=== PATIENT | male | born 1950 | race Caucasian/White ===

== ENCOUNTER 2020-02-06 13:08 | Outpatient (REF) | payer MEDICARE, OTHER, SELFPAY ==
--- NOTE | 2020-02-06 13:12 | CT_ITS ---
EXAMINATION: CT CHEST SCREENING CLINICAL INFORMATION: Lung screening. Current smoker. COMPARISON: 01/04/2019 TECHNIQUE: Multidetector volumetric CT imaging of the chest is performed without contrast using low dose technique. Additional 2D coronal and sagittal reformatted images and axial 3D maximum intensity projection (MIP) images are generated on the CT workstation. This CT examination was performed using dose optimization techniques as appropriate, variously including the following: *Automated exposure control *Adjustment of mA and/or kV according to patient size (this includes techniques or standardized protocols for targeted exams where dose is matched to indication/reason for exam; i.e. extremities or head) *Use of iterative reconstruction technique DLP: 333 mGy-cm FINDINGS: LUNGS: There is paraseptal emphysematous change seen within the upper lobes right greater than left. There are some increased interstitial lung markings seen within the posterior aspects of the right middle lobe, lingula, and lower lobes. This may be related to dependent atelectasis. There are calcified granulomas seen within the lower lobes bilaterally. Central airways are patent with some bronchial wall thickening seen centrally but no definite bronchiectasis. There is some mild apical pleuroparenchymal scarring present. There are bilateral sub-4 mm densities present.There are some scattered nonspecific ground-glass opacities seen within the left upper lobe which may be inflammatory or infectious etiology. About the confluence of the right major and minor fissures there is a 7 x 5 mm noncalcified nodular density on image 262 of 565. This is stable. Within the right middle lobe there is a 6 mm noncalcified subpleural density on image 317 of 565. This is stable. Within the right lower lobe there is a 5 mm noncalcified density seen on image 243 of 565. This is stable. There is a 7 mm region of semisolid disease subpleural location lateral aspect of the left upper lobe on image 136 of 565. This is similar in appearance to previous study. There is endobronchial density present on a left upper lobe bronchus on image 177 of 565 which may be related to mucous plugging. This is similar in appearance to study of 01/04/2019. Within the medial aspect of the left lower lobe there is a 2.2 x 1.6 irregularly marginated noncalcified mass on image 400 of 565. Previously this measured approximately 1.9 x 1.1 cm in size but was not as dense as it is on today's study where it has a more mass like appearance. MEDIASTINUM: Thyroid appears unremarkable. The heart is enlarged. There is some mild aortic valve calcification. The mitral annulus is calcified. No thoracic aortic aneurysm. There is mild nonocclusive aortic arch calcification. There are numerous non-pathologically enlarged mediastinal lymph nodes. There is a 1.2 cm short axis right precarinal lymph node. There appears to be an approximately 1.3 cm left hilar lymph node; however, without IV contrast this is difficult to evaluate. There is a 1 cm short axis right hilar lymph node. No internal mammary lymphadenopathy is seen. No pericardial effusion. PLEURA: There is no pleural effusion. No pleural mass or thickening. AXILLA: No lymphadenopathy. UPPER ABDOMEN: There is a small hiatal hernia. OSSEOUS STRUCTURES: No suspicious destructive bony lesions identified. IMPRESSION: Enlarging suspicious looking 2.2 x 1.6 cm irregular marginated left lower lobe lesion. PET/CT would be helpful in further evaluation if percutaneous biopsy is not being contemplated. Old granulomatous disease. Mild mediastinal and hilar lymphadenopathy. 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 ASSESSMENT: Lung-RADS category 4B: Suspicious RECOMMENDATION: Further evaluation with PET/CT.
== END 2020-02-06 13:09 | disposition home or self-care (01) ==
LOC: HO.CT 13:08
PROVIDERS: Visit Provider Surgery
DX: Z12.2 Encounter for screening for malignant neoplasm of respiratory organs (principal); F17.210 Nicotine dependence, cigarettes, uncomplicated
CPT/HCPCS: 71250

== ENCOUNTER 2020-02-25 10:37 | Outpatient (REF) | payer MEDICARE, OTHER, SELFPAY ==
--- NOTE | 2020-02-25 | PFT_ITS ---
FLOWS: FEV1 of 45% predicted at 1.50 L. FVC 51% of predicted at 2.19 L. FEV1 to FVC ratio of 0.69. Positive bronchodilator response. LUNG VOLUMES: Total lung capacity 79% of predicted at 5.40 L. Residual volume 138% of predicted at 3.33 L. Slow vital capacity 46% of predicted at 2.07 L. Expiratory reserve volume 19% of predicted at 0.24 L. Diffusion capacity is moderately decreased, diffusion capacity corrects to normal after adjustment for alveolar ventilation. IMPRESSION: Severe obstructive ventilatory defect with positive bronchodilator response. Combined with mild restrictive ventilatory defect. Increased residual volume suggests air trapping. Decreased expiratory reserve volume suggests extrathoracic restriction likely secondary to abdominal obesity. MD CLAUDE Luis/MODL / [id number] MTDD
== END 2020-02-25 10:38 | disposition home or self-care (01) ==
LOC: HO.RESP 10:37
PROVIDERS: Visit Provider Surgery
DX: R91.1 Solitary pulmonary nodule (principal)
CPT/HCPCS: 94060; 94727; 94729

== ENCOUNTER 2020-02-25 11:58 | Outpatient (REF) | payer MEDICARE, OTHER, SELFPAY ==
--- NOTE | 2020-02-25 09:15 | PE_ITS ---
EXAMINATION: Fluorine-18 FDG PET/CT Scan CLINICAL INDICATION: Initial treatment management. Pulmonary nodule. PROCEDURE: 69 minutes following the intravenous administration of 16.9 mCi of fluorine 18 FDG, images from the base of the skull to the mid thighs were obtained using a combined PET/CT scanner with CT scan based attenuation correction. No oral contrast was administered. No intravenous contrast was administered. Transverse, coronal, sagittal, and volume reconstruction projections were obtained. The patient's blood glucose as determined by a finger stick, was 67 mg/dl immediately prior to injection. Total CT exam dose-length product 1074.68 mGy-cm COMPARISON: No previous PET/CT scan is available for comparison. CT scans of the chest dated 02/06/2020 and of the abdomen and pelvis dated 03/08/2017 are available for comparison. FINDINGS: (Slice numbers described in this report are numbered superiorly to inferiorly with slice #1 in the head) NECK AND VISUALIZED HEAD: No foci of abnormal FDG activity are noted. The distribution of FDG activity is physiological. There is no cervical lymphadenopathy. THORAX: There is a medial pleural-based left lower lobe pulmonary nodule that measures 1.5 x 1.2 cm in largest transverse dimensions, slice 111/267. This may show weak FDG activity, but this is not easily from the adjacent intense physiological cardiac activity. This is not significantly changed from the 02/06/[address] scan. No other suspicious pulmonary nodules are visualized. There are few FDG avid mediastinal lymph nodes that are not enlarged by size criteria including a subcarinal node showing SUV Max 5.6, slice 87/267, a left lower paratracheal lymph node showing SUV Max 5.9, slice 78/267 and an AP window lymph node showing SUV Max 4.3, slice 76/267. No other foci of abnormal FDG activity are present within the chest. There is no additional mediastinal, supraclavicular, or axillary lymphadenopathy. A few bilateral calcified granulomas are present in the lower lobes bilaterally, better visualized on the diagnostic 02/06/2020 CT scan and all much too small to be characterized on the FDG PET images. There is no pleural or pericardial fluid, or pneumothorax. ABDOMEN AND PELVIS: No foci of abnormal FDG activity are present in the abdomen or pelvis. There is mild FDG activity throughout the gastrointestinal tract without a focal component, likely physiological. There is diverticulosis without evidence of diverticulitis. Hollow viscera are otherwise unremarkable. The liver, gallbladder, an spleen appear unremarkable. There is a 2.6 cm hypodense cyst in the lower pole the left kidney, unchanged from 03/08/2017. The kidneys are otherwise unremarkable. The adrenal glands and pancreas are unremarkable. There is no retroperitoneal, mesenteric, pelvic or inguinal lymphadenopathy. The pelvic organs are unremarkable. MUSCULOSKELETAL: There are no foci of abnormal FDG activity in the osseous structures. There are mild degenerative changes in the spine but no suspicious sclerotic or lytic lesions are visualized. VASCULAR: Scattered vascular calcifications are present. PET/PET CT fusion skull to thigh IMPRESSION: 1. A medial pleural-based left lower lobe there is no definite abnormal FDG activity suggesting a benign etiology. However because approximately 10% of pulmonary malignancies demonstrate no abnormal FDG activity, in addition this nodule has enlarged since less recent prior CT scans, if biopsy of this nodule is not obtained, followup with diagnostic CT scan in 3-6 months is recommended. 2. Several nonenlarged FDG avid mediastinal lymph nodes are present as described above, and these are nonspecific and may be inflammatory or malignant in etiology. 3. No additional abnormalities suspicious for metastatic or other malignant lesions are noted.
== END 2020-02-25 11:59 | disposition home or self-care (01) ==
LOC: HO.PET 11:58
PROVIDERS: Visit Provider Surgery
DX: Z13.89 Encounter for screening for other disorder (principal)

== ENCOUNTER 2020-03-02 08:08 | Outpatient (REF) | payer MEDICARE, OTHER, SELFPAY ==
[2020-03-02 11:19] LABS: MANUAL DIFF FLAG NO
[2020-03-02 11:48] LABS: Basophils Absolute Auto 0.1 X10*3/uL (0.0-0.2); Basophils Percent Auto 0.6 % (0-2); Eosinophils Absolute Auto 0.7 X10*3/uL (0.0-0.4); Eosinophils Percent Auto 8.1 % (0-4); Hematocrit 37.3 % (42-52); Hemoglobin 11.3 g/dl (14.0-18.0); Imm Gran Abs Auto 0.01 X10*3/uL (0.00-0.03); Imm Gran Pct Auto 0.1 % (0.0-0.4); Lymphocytes Absolute Auto 2.6 X10*3/uL (1.2-4.9); Lymphocytes Percent Auto 32.1 % (20-40); Mean Corpuscular HGB Conc 30.3 g/dl (31.0-36.0); Mean Corpuscular Hemoglobin 25.7 pg (27.0-33.0); Mean Corpuscular Volume 84.8 fL (80-98); Mean Platelet Volume 11.5 fL (9.4-12.4); Monocytes Absolute Auto 0.9 X10*3/uL (0.1-1.2); Monocytes Percent Auto 11.2 % (2-11); Neutrophils Absolute Auto 3.9 X10*3/uL (2.0-8.3); Neutrophils Percent Auto 47.9 % (45-73); Platelet Count 288 X10*3/uL (160-400); Red Cell Distribution Width 14.8 % (11.0-16.0); White Blood Count 8.2 X10*3/uL (4.8-10.8)
[2020-03-02 12:04] LABS: Glucose Urine UA NEG (NEG); Leukocyte Esterase Urine NEG (NEG); Nitrite Urine NEG (NEG); Specific Gravity - Urine 1.025 (1.005-1.025); Urine Blood TRACE (NEG); Urine Ketones NEG (NEG); Urine Protein 2+ MG/DL (NEG-TRACE)
[2020-03-02 12:10] LABS: Albumin Level 3.6 g/dL (3.5-5.0); Anion Gap 12 (12-20); Blood Urea Nitrogen 43 mg/dL (9-16); Calcium 8.6 mg/dL (8.4-10.2); Carbon Dioxide 26 mmol/L (22-29); Chloride 108 mmol/L (96-108); Color Urine YELLOW; Estimated Glomerular Filt Rate 27; Magnesium 2.2 mg/dL (1.6-2.6); Phosphorus 4.2 mg/dL (2.7-4.5); Potassium 5.4 mmol/l (3.3-5.1); Sodium 141 mmol/L (135-145); Total Protein 6.9 g/dL (6.5-8.0)
[2020-03-02 12:11] LABS: Appearance Urine CLEAR
[2020-03-02 12:13] LABS: Renal w Reflex-LAB USE ONLY Order Verified
[2020-03-02 12:17] LABS: Amorphous Sediment Urine TRACE /LPF; RBC Urine 0-2 /HPF (0); Squamous Epithelial Cell Urine TRACE /LPF; WBC Urine 0-2 /HPF (0-4)
[2020-03-02 12:22] LABS: Renal w Reflex Lab Use Only Order verified
[2020-03-02 12:36] LABS: Vitamin D 25-OH Total 16.6 ng/mL (>30)
[2020-03-02 12:37] LABS: Creatinine Urine 52.86 mg/dL; Creatinine Urine 53.52 mg/dL
[2020-03-02 12:56] LABS: Protein/Creatinine Ratio, Ur 6.22 (<0.2); Total Protein Urine Random 329 mg/dL (<12)
[2020-03-04 12:42] LABS: Calcium (PTHI) 9.1 mg/dL (8.6-10.3); PTHI 322 pg/mL (14-64)
== END 2020-03-02 08:09 | disposition home or self-care (01) ==
LOC: HO.HMGCLDS 08:08
PROVIDERS: PCP Nurse Practitioner Family; Visit Provider Internal Medicine Nephrology
DX: E78.5 Hyperlipidemia, unspecified (principal); R79.89 Other specified abnormal findings of blood chemistry; E11.22 Type 2 diabetes mellitus with diabetic chronic kidney disease; I12.9 Hypertensive chronic kidney disease with stage 1 through stage 4 chronic kidney disease, or unspecified chronic kidney disease; N18.30 Chronic kidney disease, stage 3 unspecified; E11.29 Type 2 diabetes mellitus with other diabetic kidney complication
CPT/HCPCS: 36415; 80051; 81001; 82040; 82043; 82306; 82310; 82565; 83735; 83970; 84100; 84155; 84156; 84520; 85025

== ENCOUNTER → 2020-03-13 10:55 | Outpatient (BNVA) | payer MEDICARE, OTHER, SELFPAY | PROVIDERS: PCP Nurse Practitioner Family; Visit Provider Surgery | DX: R91.1 Solitary pulmonary nodule (principal); R59.0 Localized enlarged lymph nodes; Z87.891 Personal history of nicotine dependence | CPT/HCPCS: 99205 ==

== ENCOUNTER → 2020-04-10 10:47 | Outpatient (BNVA) | payer MEDICARE, OTHER, SELFPAY | PROVIDERS: PCP Nurse Practitioner Family; Visit Provider Surgery | DX: R91.1 Solitary pulmonary nodule (principal); Z87.891 Personal history of nicotine dependence | CPT/HCPCS: 99215 ==

== ENCOUNTER 2020-04-15 15:10 | Outpatient (REF) | payer MEDICARE, OTHER, SELFPAY ==
--- NOTE | 2020-04-15 15:54 | XR_ITS ---
EXAMINATION: XR CHEST CLINICAL INFORMATION: Disorders of lung. COMPARISON: None TECHNIQUE: 2 views of the chest were obtained. FINDINGS: The lungs are well-expanded with no acute pneumonic consolidation. Increased bilateral parahilar markings are noted. No gross bony abnormality. XR/XR chest 2V IMPRESSION: No acute pneumonic process. Bilateral increased perihilar interstitial markings without congestion. No infiltrate seen.
== END 2020-04-15 15:11 | disposition home or self-care (01) ==
LOC: HO.XRAY 15:10
PROVIDERS: PCP Nurse Practitioner Family; Visit Provider Internal Medicine
DX: J44.9 Chronic obstructive pulmonary disease, unspecified (principal); R91.1 Solitary pulmonary nodule; J98.4 Other disorders of lung; R79.89 Other specified abnormal findings of blood chemistry
CPT/HCPCS: 71046; 99212

== ENCOUNTER → 2020-04-27 10:57 | Outpatient (BNVA) | payer MEDICARE, OTHER, SELFPAY | PROVIDERS: PCP Nurse Practitioner Family; Visit Provider Internal Medicine Gastroenterology | DX: Z01.818 Encounter for other preprocedural examination (principal); K59.09 Other constipation; J44.9 Chronic obstructive pulmonary disease, unspecified; E11.9 Type 2 diabetes mellitus without complications | CPT/HCPCS: Q3014 ==

== ENCOUNTER → 2020-05-12 15:37 | Outpatient (BNVA) | payer MEDICARE, OTHER, SELFPAY | PROVIDERS: PCP Nurse Practitioner Family; Visit Provider Internal Medicine | DX: J98.4 Other disorders of lung (principal); J44.9 Chronic obstructive pulmonary disease, unspecified; R91.1 Solitary pulmonary nodule | CPT/HCPCS: 99212 ==

== ENCOUNTER 2020-06-03 14:59 | Outpatient (REF) | payer MEDICARE, OTHER, SELFPAY ==
--- NOTE | ~2020-06-03 | CT_ITS ---
EXAMINATION: CT CHEST WITHOUT CONTRAST CLINICAL INFORMATION: Follow-up pulmonary nodule COMPARISON: Previous chest CT scans December 2018 and January 2020 TECHNIQUE: Multidetector volumetric CT imaging of the chest was done. Axial MIP volume rendering provided. Sagittal and coronal reformatted images were obtained. This CT examination was performed using dose optimization techniques as appropriate, variously including the following: *Automated exposure control *Adjustment of mA and/or kV according to patient size (this includes techniques or standardized protocols for targeted exams where dose is matched to indication/reason for exam; i.e. 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 There is evidence of mild paraseptal emphysema. There are increased peripheral interstitial markings at the lung bases. There is interval increase in size in the irregular lobulated left lower lobe nodule. This measures 2 cm in AP and transverse dimension axial image 465 series 5 compared to 1.6 x 1.7 cm on January 2020 exam and 0.7 x 1.4 cm on December 2018 exam.. There are scattered small calcified and noncalcified pulmonary nodules that are stable. MEDIASTINUM: There is shotty mediastinal lymphadenopathy that is stable. Largest lymph nodes are upper normal in size. No hilar adenopathy is appreciated. The heart is slightly enlarged. There is no pericardial effusion. There is mild aortic valve calcification. The thoracic aorta is normal in caliber. PLEURA: There is no pleural effusion. No pleural mass or thickening. AXILLA: No lymphadenopathy. UPPER ABDOMEN: Unremarkable. OSSEOUS STRUCTURES: There is a increased sclerosis of the bones. A focal bone lesion is not seen. Metabolic bone disease should be considered. There are degenerative changes of the spine. CT/CT chest wo con IMPRESSION: Exam is limited due to respiratory motion artifact however there appears to be continued slight interval increase in size in the left lower lobe nodule compared to most recent exam January 2020. Paraseptal emphysema and question mild interstitial disease at the lung bases. Enlarged heart. Diffuse increased sclerosis of the bones questionable for metabolic bone disease.
== END 2020-06-03 15:00 | disposition home or self-care (01) ==
LOC: HO.CT 14:59
PROVIDERS: Visit Provider Surgery
DX: R91.1 Solitary pulmonary nodule (principal)
CPT/HCPCS: 71250

== ENCOUNTER 2020-06-25 19:24 | Outpatient (REF) | payer MEDICARE, OTHER, SELFPAY ==
--- NOTE | ~2020-06-25 | MR_ITS ---
EXAMINATION: MR BRAIN WITHOUT CONTRAST CLINICAL INFORMATION: Staging for non-small cell lung cancer. COMPARISON: None. TECHNIQUE: Multiplanar, multisequence imaging of the brain was performed without contrast. Limited study with motion artifacts. FINDINGS: No diffusion abnormalities are identified to suggest an acute infarct. The ventricles are normal in size. No mass effect or midline shift is seen. Minimal nonspecific white matter signal changes visible. No extra-axial fluid collections are seen. The brainstem is normal. 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 There are a few punctate foci of low signal on the gradient acquisition in the right frontal lobe and right parietal lobe at the to-white matter junction which are nonspecific and may be due to mineralization or chronic microhemorrhage. The craniovertebral junction, marrow signal, and midline structures are normal. The major intracranial flow voids at the level of the [place] are preserved. The dural venous sinus flow voids are maintained. The paranasal sinuses are well aerated. There is a moderate right mastoid effusion. The left mastoid air cells are well clear. The nasopharyngeal soft tissues appear normal. The cervical vertebral marrow is heterogeneously low in signal on T1-weighted imaging with moderate spondylitic changes and a reversal of the normal cervical lordosis. MR/MR head/brain wo con IMPRESSION: Slightly limited study with motion artifacts. No acute intracranial process. No abnormal mass effect or parenchymal edema. 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 Moderate right mastoid effusion. Normal appearance of the nasopharyngeal soft tissues. Nonspecific heterogeneously low marrow signal in the cervical spine with moderate spondylosis.
--- NOTE | 2020-06-25 15:13 | MHC.HEMONCSW ---
[facility] now instead of [facility] because kevin doesn't have a appointment before the . they will call dtr with time.
== END 2020-06-25 19:25 | disposition home or self-care (01) ==
LOC: HO.MRI 19:24
PROVIDERS: Visit Provider Internal Medicine Medical Oncology
DX: C34.90 Malignant neoplasm of unspecified part of unspecified bronchus or lung (principal)
CPT/HCPCS: 70551

== ENCOUNTER 2020-06-30 12:44 | Outpatient (REF) | payer MEDICARE, OTHER, SELFPAY ==
--- NOTE | ~2020-06-30 | PE_ITS ---
EXAMINATION: Fluorine-18 FDG PET/CT Scan CLINICAL INDICATION: Initial treatment management. Adenocarcinoma left lung, initial staging. PROCEDURE: 61 minutes following the intravenous administration of 14.4 mCi of fluorine 18 FDG, images from the base of the skull to the mid thighs were obtained using a combined PET/CT scanner with CT scan based attenuation correction. No oral contrast was administered. No intravenous contrast was administered. Transverse, coronal, sagittal, and volume reconstruction projections were obtained. The patient's blood glucose as determined by a finger stick, was 107 mg/dl immediately prior to injection. Total CT exam dose-length product 1006.69 mGy-cm * These CT images were obtained using dose optimization techniques as appropriate, variously including the following: Automated exposure control * Adjustment of mA and/or kV according to patient size (this includes techniques or standardized protocols for targeted exams where dose is matched to indication/reason for exam; i.e. extremities or head) * Use of iterative reconstruction technique COMPARISON: The previous PET CT scan dated 02/25/2020 is available for comparison. CT scan of the chest dated 06/03/2020 is also available for comparison. FINDINGS: (Slice numbers described in this report are numbered superiorly to inferiorly with slice #1 in the head) NECK AND VISUALIZED HEAD: No foci of abnormal FDG activity are noted. The distribution of FDG activity is physiological. There is no cervical lymphadenopathy. THORAX: Medially in the left lower lobe there are postsurgical changes including multiple metallic sutures and adjacent small left pleural effusion posteromedially, and these show mildly increased FDG activity which is diffuse in the pleural fluid with some additional more focal accumulations showing SUVmax 6.0, slice 100/267. These are all new since the most recent chest CT scan dated 06/03/2020, and the medial left lower lobe pulmonary nodule visualized on that study has been resected. The abnormal FDG activity extends to the medial peribronchial region of the interlobar fissure where there is a discrete focus of FDG activity showing SUVmax 5.4, slice 84/267. No additional foci of abnormal FDG activity are present in the lung parenchyma on either side. Additional scattered small pulmonary nodules visualized on the diagnostic 06/03/2020 CT scan are not well visualized on these nondiagnostic CT images. There are multiple FDG avid mediastinal lymph nodes present, none of which are definitely enlarged. These include a subcarinal lymph node showing SUVmax 4.8, slice 82/267, slightly less intense than on the prior 02/25/2020 PET/CT scan when this showed SUVmax 5.6; a left lower paratracheal node showing SUVmax 4.9, slice 73/267 compared to prior SUVmax 5.9; and an AP window lymph node showing SUVmax 5.1, slice 69/267 versus SUVmax 4.3 on prior. Additional small subcentimeter mediastinal lymph nodes are present at multiple levels, and these do not appear significantly changed in appearance since the prior PET CT scan dated 02/25/2020. There is no supraclavicular or axillary lymphadenopathy. There is no right-sided pleural fluid or pericardial fluid or pneumothorax. ABDOMEN AND PELVIS: No foci of abnormal FDG activity are present in the abdomen or pelvis. There is mild FDG activity in the gastrointestinal tract without a suspicious focal component. There is diverticulosis without evidence of diverticulitis. The hollow viscera are otherwise unremarkable. The liver, gallbladder, and spleen are unremarkable. There is a stable hypodense cyst in the lower pole of the left kidney, markedly FDG photopenic. The kidneys are otherwise unremarkable. The adrenal glands and pancreas are unremarkable. There is no retroperitoneal, mesenteric, pelvic or inguinal lymphadenopathy. A stable small fat-containing periumbilical hernia is noted. The pelvic organs are unremarkable. MUSCULOSKELETAL: No foci of abnormal FDG activity are present in the osseous structures. There are mild degenerative changes in the spine but no suspicious sclerotic or lytic lesions are present. VASCULAR: Scattered vascular calcifications are present. PET/PET CT fusion skull to thigh IMPRESSION: Postsurgical changes from resection of a previously visualized left lower lobe pulmonary nodule are noted. Mildly to moderately intense FDG activity is associated with suture lines and a small amount of left pleural fluid in this region which likely represent post surgical inflammatory changes. Multiple stable appearing mediastinal lymph nodes are present, and these continue to show mild FDG activity which is not significantly changed from the prior 02/25/2020 PET/CT scan. These may be inflammatory or malignant in etiology. No additional abnormalities suspicious for other metastatic or malignant lesions are noted.
== END 2020-06-30 12:45 | disposition home or self-care (01) ==
LOC: HO.PET 12:44
PROVIDERS: Visit Provider Internal Medicine Medical Oncology
DX: Z13.89 Encounter for screening for other disorder (principal)

== ENCOUNTER 2020-07-02 08:45 | Outpatient (REF) | payer MEDICARE, OTHER, SELFPAY ==
[2020-07-02 11:59] LABS: Alanine Aminotransferase 10 U/L (0-40); Albumin Level 3.3 g/dL (3.5-5.0); Alkaline Phosphatase 124 U/L (39-117); Anion Gap 14 (12-20); Aspartate Amino Transferase 12 U/L (5-37); Bilirubin Total 0.3 mg/dL (0.0-1.0); Blood Urea Nitrogen 49 mg/dL (9-16); Calcium 8.6 mg/dL (8.4-10.2); Carbon Dioxide 25 mmol/L (22-29); Chloride 107 mmol/L (96-108); Cholesterol 182 mg/dL; Estimated Glomerular Filt Rate 24; Glucose Fasting 98 mg/dL (60-99); HDL Cholesterol 43 mg/dL; LDL Cholesterol Calculated 105 mg/dl; Potassium 5.4 mmol/L (3.3-5.1); Sodium 141 mmol/L (135-145); Total Protein 7.1 g/dL (6.5-8.0); Triglycerides 171 mg/dL
[2020-07-02 12:12] LABS: Estimated Average Glucose 146 mg/dL; Hemoglobin A1c % 6.7 %
[2020-07-02 12:22] LABS: Prostate Specific Antigen Scr 2.61 ng/mL (<0.05-4.0); TSH reflex Free T4 1.95 uIU/mL (0.32-4.0)
== END 2020-07-02 08:46 | disposition home or self-care (01) ==
LOC: HO.HMGCLDS 08:45
PROVIDERS: PCP Nurse Practitioner Family; Visit Provider Radiology Radiation Oncology
DX: C34.32 Malignant neoplasm of lower lobe, left bronchus or lung (principal); J44.9 Chronic obstructive pulmonary disease, unspecified; J98.4 Other disorders of lung; R06.00 Dyspnea, unspecified; E11.22 Type 2 diabetes mellitus with diabetic chronic kidney disease; N18.9 Chronic kidney disease, unspecified; Z12.5 Encounter for screening for malignant neoplasm of prostate; Z79.84 Long term (current) use of oral hypoglycemic drugs; Z79.899 Other long term (current) drug therapy
CPT/HCPCS: 36415; 80053; 80061; 83036; 84153; 84443; 99212

== ENCOUNTER 2020-07-03 10:04 | Outpatient (REF) | payer MEDICARE, OTHER, SELFPAY ==
--- NOTE | ~2020-07-03 | XR_ITS ---
EXAMINATION: XR CHEST CLINICAL INFORMATION: Solitary pulmonary nodule COMPARISON: CT chest 06/03/2020 TECHNIQUE: 2 views of the chest were obtained. FINDINGS: The lungs are fairly well-expanded with patchy opacity seen in left lung base likely infiltrate/atelectasis. Rest of lungs are clear. The heart size and pulmonary vascularity is normal. No gross bony abnormality seen. XR/XR chest 2V IMPRESSION: Suspect left lower lobe infiltrate/atelectasis.
== END 2020-07-03 10:05 | disposition home or self-care (01) ==
LOC: HO.XRAY 10:04
PROVIDERS: Visit Provider Surgery
DX: R91.1 Solitary pulmonary nodule (principal)
CPT/HCPCS: 71046; 99212

== ENCOUNTER 2020-09-16 11:54 | Outpatient (REF) | payer MEDICARE, OTHER, SELFPAY ==
--- NOTE | ~2020-09-16 | XR_ITS ---
EXAMINATION: XR CHEST CLINICAL INFORMATION: Lung cancer COMPARISON: Previous chest x-ray most recent June [address] a 2020 TECHNIQUE: 2 views of the chest were obtained. FINDINGS: The cardiac and mediastinal contours are stable. There are postsurgical changes to the left lower lobe. The lungs are clear. There is no pleural effusion or pneumothorax. There are degenerative changes of the spine. XR/XR chest 2V IMPRESSION: Postsurgical changes to the left lower lobe.
== END 2020-09-16 11:55 | disposition home or self-care (01) ==
LOC: HO.XRAY 11:54
PROVIDERS: PCP Nurse Practitioner Family; Visit Provider Internal Medicine Medical Oncology
DX: C34.90 Malignant neoplasm of unspecified part of unspecified bronchus or lung (principal); R05 Cough
CPT/HCPCS: 71046

== ENCOUNTER 2020-09-28 14:54 | Outpatient (REF) | payer MEDICARE, OTHER, SELFPAY ==
--- NOTE | ~2020-09-28 | CT_ITS ---
EXAMINATION: CT CHEST WITHOUT CONTRAST CLINICAL INFORMATION: Lung cancer, on chemotherapy. COMPARISON: Previous chest x-rays, most recent August [address] from May 2020 and PET/CT scan June 2020 TECHNIQUE: Multidetector volumetric CT imaging of the chest was done. Axial MIP volume rendering provided. Sagittal and coronal reformatted images were obtained. This CT examination was performed using dose optimization techniques as appropriate, variously including the following: *Automated exposure control *Adjustment of mA and/or kV according to patient size (this includes techniques or standardized protocols for targeted exams where dose is matched to indication/reason for exam; i.e. extremities or head) *Use of iterative reconstruction technique DLP: 294 mGy-cm FINDINGS: LUNGS: There is evidence of paraseptal emphysema. There are small scattered areas of increased peribronchial attenuation seen in the left upper lobe. There is a new heterogeneous or semisolid apical posterior segment left upper lobe nodule near the left pleural fissure measuring 0.7 x 1.3 cm axial image 216 series 4. There are postsurgical changes to the left lower lobe. There is adjacent linear scarring or subsegmental atelectasis seen in the left lower lobe adjacent to the surgical staple line. There is increased peribronchial attenuation seen in the lingula and left lower lobe. There is a 4 x 5 mm peripheral or subpleural right middle lobe nodule near the minor fissure axial image 77 series 4 that is stable. This probably represents a subpleural lymph node. There is a 2 mm peripheral calcified right lower lobe nodule axial image 378 series 4 that is stable. There are increased peripheral interstitial markings questionable for mild interstitial lung disease. MEDIASTINUM: The visualized thyroid gland is unremarkable. There is shotty mediastinal lymphadenopathy. There may also be bilateral hilar lymphadenopathy. This does not appear appreciably changed from previous exam. Lymph nodes are upper normal in size. Largest lymph node is a subcarinal lymph node measuring 1.3 cm in AP dimension. The heart does not appear enlarged. There is mild coronary artery calcification. There is no pericardial effusion. PLEURA: There is a new small loculated left pleural effusion compared to previous chest CT scan from May. This is slightly decreased compared to previous PET/CT scan June 2020. There is no right pleural effusion. AXILLA: No lymphadenopathy. UPPER ABDOMEN: There is right adrenal calcification. OSSEOUS STRUCTURES: There are degenerative changes of the spine. The bones appear dense or sclerotic. A focal lesion is not seen. Again, metabolic bone disease should be considered. No abnormal bone uptake was seen on previous PET CT. CT/CT chest wo con IMPRESSION: Postsurgical changes to the left lower lobe. New areas of increased peribronchial attenuation in the left upper and lower lobe and 0.7 x 1.7 cm left upper lobe semisolid nodule. This may represent airways disease/infectious or inflammatory process. Short-term follow-up chest CT scan in 2-3 months is recommended. Small loculated left pleural effusion decreased from most recent postoperative PET/CT scan June 2020. Mild paraseptal emphysema. Question mild peripheral interstitial lung disease.
== END 2020-09-28 14:55 | disposition home or self-care (01) ==
LOC: HO.CT 14:54
PROVIDERS: Visit Provider Internal Medicine Medical Oncology
DX: C34.90 Malignant neoplasm of unspecified part of unspecified bronchus or lung (principal)
CPT/HCPCS: 71250

== ENCOUNTER → 2020-10-19 14:58 | Outpatient (BNVA) | payer MEDICARE, OTHER, SELFPAY | PROVIDERS: Visit Provider Internal Medicine Gastroenterology ==

== ENCOUNTER → 2020-10-29 06:20 | Day surgery (SDC) | payer MEDICARE, OTHER, SELFPAY ==
[2020-10-21 15:50] VITALS: BMI 33.2
--- NOTE | 2020-10-28 09:00 | P.CONAN_ITS ---
HPI - Anesthesia Eval Consult details Narrative: CX'd 10/29/20 for EKG changes and not completing prep 70yo M for Colonoscopy 06/16/20: left lower lobe wedge resection/VATS for lung CA, chemo last on 09/30 recently passed MESA, Anemia (recent 2 units PRBC), deconditioning PMFSH Active Problems Active Problems: All Active Problems (Updated 10/21/20 @ 15:37 by Romy Mckinley) Mediastinal lymphadenopathy (Acute) Screening PSA (prostate specific antigen) (Acute) Colon cancer screening (Acute) Chronic constipation (Acute) Adenocarcinoma of lung, stage 3 (Acute) Hyperkalemia (Acute) Elevated alkaline phosphatase level (Acute) Adenocarcinoma (Acute) Poor nutrition (Acute) Systolic murmur (Acute) Overgrown toenails (Acute) Dyspnea on exertion (Acute) COPD (chronic obstructive pulmonary disease) (Acute) Restrictive lung disease (Acute) COPD (chronic obstructive pulmonary disease) (Acute) Diabetes (Acute) Lung nodule (Acute) Personal history of nicotine dependence (Acute) Past Medical History Medical History (Updated 10/28/20 @ 09:08 by Gianna Lenz) Adenocarcinoma of lung, stage 3 Arthritis CKD (chronic kidney disease) COPD (chronic obstructive pulmonary disease) COPD (chronic obstructive pulmonary disease) Diabetes Dyspnea on exertion HTN (hypertension) Lung nodule Personal history of nicotine dependence Restrictive lung disease Family History Family History Father No problems noted. Mother Diabetes mellitus Surgical History Surgical History (Updated 10/21/20 @ 15:37 by Romy Mckinley) H/O pneumonectomy History of arthroplasty of left knee History of right cataract extraction Social History Social History (Updated 10/21/20 @ 15:48 by Romy Mckinley) Household Members: Spouse and None Housing: House Are you a primary primary care sales representative to a significant other at home: No Do you presently have visiting nurse or other home services: No Alcohol intake: never Patient Tobacco Use Status: Former Tobacco user Quit Date: 11/30/19 Tobacco use type: Cigarette Years Smoked: 55 Second Hand Smoke Exposure: No Use of substances other than those prescribed or required for medical reasons: No Have you been hit, kicked, punched, or otherwise hurt by someone within the past year? If so, by whom?: No Are you DNR?: No Advance Directives: No Advance Directives Information Provided: No Advance Directives on File: No Recently lost weight without trying: No Eating poorly because of decreased appetite: No Nutrition Risks: No Nutritional Risk Meds Allergies Allergy/AdvReac Type Severity Reaction Status Date / Time No Known Allergies Allergy Verified 10/19/20 15:08 [No Known Allergies*] Exam Exam Date and Time: October 28, 2020 0900 Height,Weight and Vital Signs: Height 5 ft 9 in Weight 102.058 kg Pertinent Lab Results Pertinent Lab Results: Laboratory Tests 10/08/20 10/08/20 10:38 10:38 WBC 5.0 Hgb 9.7 L Hct 30.6 L Plt Count 260 D Sodium 142 Potassium 5.2 H Chloride 108 Carbon Dioxide 25 BUN 49 H Creatinine 2.60 H Assessment and Plan Assessment Anesthesia Assessment: Chart Reviewed
--- NOTE | 2020-10-29 | ECG_ITS ---
Test Reason : ST depression/ inverted T waves no previous EKG for compari Blood Pressure : / mmHG Vent. Rate : 072 BPM Atrial Rate : 072 BPM P-R Int : 198 ms QRS Dur : 104 ms QT Int : 402 ms P-R-T Axes : 064 -17 139 degrees QTc Int : 440 ms Normal sinus rhythm Voltage criteria for left ventricular hypertrophy Nonspecific T wave abnormality Abnormal ECG When compared with ECG of 16-DEC-2015 14:42, Nonspecific T wave abnormality now evident in Inferior leads T wave inversion now evident in Lateral leads Referred By: Stephanie Robledo Electronically Signed By:JUAN JOHN
[2020-10-29 06:39] LABS: Glucose, Whole Blood 71 mg/dL (60-115)
[2020-10-29 06:41] VITALS: BP 144/79; PULSE 84; RESP 18; TEMP 36.6; O2SAT 97
--- NOTE | 2020-10-29 06:53 | PC.NURSE ---
PATIENT'S BS 70 AT 0630. PATIENT IS CURRENTLY ASYMPTOMATIC. THIS RN CORTEXTED DR. WYLIE
[2020-10-29] MEDS: 0.9 % Sodium Chloride 1,000 ML 50 ML IVCONT (07:00)
--- NOTE | 2020-10-29 07:02 | MHC.SHP ---
Pre-Procedural Eval Section A Date of Service: 10/29/20 The patient is an INPATIENT: No The History & Physical has been completed within 30 days and I have reviewed it.: Yes Section B Chief Complaint: constipation Allergies: Allergies Allergy/AdvReac Type Severity Reaction Status Date / Time No Known Allergies Allergy Verified 10/19/20 15:08 [No Known Allergies*] Plan Diagnosis/Plan: Change (Pt took solid food for breakfast and lunch yesterday. Took only one dose of Miralax. Has been having soft stools.Procedure cancelled since patient is not prepped) I have reviewed the history and physical and performed a pertinent physical examination on my patient. No changes have occurred unless specified.
--- NOTE | 2020-10-29 07:02 | W.PM.OPN ---
Operative Note Operative Note Date of Service: 10/29/20
--- NOTE | 2020-10-29 07:02 | PM.OP ---
Brief Operative Note Date of Service: 10/29/20 Pre-op diagnosis: Colon cancer screening Procedure: COLONOSCOPY PROCEDURE NOTE Consent: Indications for the procedure and potential complications of bleeding, perforation, reaction to medications and missed diagnosis were discussed with the patient and informed consent was obtained. Instrument: Olympus PCF H 190 L variable stiffness pediatric colonoscope Monitoring: Vital signs and clinical assessment, intermittent blood pressure monitoring, continuous EKG monitoring, Pulse oximetry and Carbon Dioxide monitoring were done throughout the procedure. Colon withdrawl time was [] minutes. Procedure: The patient was placed in the left lateral decubitis position and pre-procedure medications were administered. After a digital rectal examination of the ano-rectum, the video colonoscope was inserted into the rectum and advanced through the colon to the cecum. The colonoscope was slowly withdrawn in a retrograde panoramic fashion and the colon mucosa was carefully examined including a retroflexed view of the rectum. Findings and interventions are described below. Procedure Difficulty: [Without difficulty] [LLQ pressure applied to intubate the transverse colon/cecum] Findings: Terminal Ileum: Not evaluated Cecum: Normal Ascending Colon: Normal Transverse Colon: Normal Descending Colon: Normal Sigmoid Colon: Moderate diverticulosis Rectum: Normal Ano-rectum: Moderate internal hemorrhoids Colon preparation: [Excellent] [Good] [Fair] [poor] Impression and Post Procedure Diagnosis: Colonoscopy Findings: [] polyps removed Moderate diverticulosis seen in the []colon Moderate hemorrhoids on retroflexed exam. Plan: Await pathology results Patient has an appointment on []in the GI Clinic with [LORIE Amaya] [Valery Sellers NP] [Valery Mccarty, CONTINUOUS IMPROVEMENT ENGINEER-] [Rupinder Thrasher M.D.]. Repeat Colonoscopy interval based on path results - in 3-5 years if polyps are adenomatous and 10 years if polyps are hyperplastic. Above findings were reviewed with the patient and [colon polyps] and [diverticulosis] handouts were given in the discharge area Surgeon: Rupinder Thrasher MD Was an Churn Tender used for this Procedure?: No
[2020-10-29 07:12] VITALS: BMI 32.8
--- NOTE | 2020-10-29 07:23 | PC.NURSE ---
DR. BUSTAMANTE ORDERED AN EKG.
--- NOTE | 2020-10-29 07:43 | PC.NURSE ---
PROCEDURE BEING CANCELLED R/T PATIENT DID NOT COMPLETE HIS PREP. DR. LINDSEY AWARE AND ANESTHESIA.
--- NOTE | 2020-10-29 07:44 | PM.EVENT ---
Event Note Date of Service: 10/29/20 Event Note: Pt came for his colonoscopy appointment. Pt took solid food for breakfast and lunch yesterday. Took only one dose of Miralax. Has been having soft stools. Procedure cancelled since patient is not prepped. Scheduled for XRT treatment for lung cancer for 6 weeks. Colonoscopy will be rescheduled in 8 weeks after patient completes his XRT.
== END ==
PROVIDERS: PCP Nurse Practitioner Family; Visit Provider Internal Medicine Gastroenterology
DX: K59.00 Constipation, unspecified (principal); Z53.8 Procedure and treatment not carried out for other reasons; C34.92 Malignant neoplasm of unspecified part of left bronchus or lung; Z87.891 Personal history of nicotine dependence
CPT/HCPCS: 82947; 93005

== ENCOUNTER 2021-01-14 08:21 | Outpatient (REF) | payer MEDICARE, OTHER, SELFPAY ==
--- NOTE | ~2021-01-14 | XR_ITS ---
EXAMINATION: XR AP KNEES, BILATERAL STANDING XR KNEE, RIGHT CLINICAL INFORMATION: Pain. COMPARISON: None TECHNIQUE: AP bilateral knees. Right knee 2 views. FINDINGS: AP Bilateral Knees: There is a loss of medial compartment joint space right knee. The lateral compartment joint space is maintained normal. There is a total left knee prosthesis. Linear calcification is seen along the lateral knee. Right Knee: There is severe loss of patellofemoral compartment joint space with moderate periarticular spurring. There is no suprapatellar joint effusion. There are no loose bodies. No acute fracture or dislocation. No soft tissue swelling. XR/XR knee standing BI IMPRESSION: Degenerative arthritic changes medial and patellofemoral compartment right knee. No visible acute fracture or dislocation seen. No abnormal joint effusion. Total left knee prosthesis in alignment.
--- NOTE | ~2021-01-14 | XR_ITS ---
EXAMINATION: XR AP KNEES, BILATERAL STANDING XR KNEE, RIGHT CLINICAL INFORMATION: Pain. COMPARISON: None TECHNIQUE: AP bilateral knees. Right knee 2 views. FINDINGS: AP Bilateral Knees: There is a loss of medial compartment joint space right knee. The lateral compartment joint space is maintained normal. There is a total left knee prosthesis. Linear calcification is seen along the lateral knee. Right Knee: There is severe loss of patellofemoral compartment joint space with moderate periarticular spurring. There is no suprapatellar joint effusion. There are no loose bodies. No acute fracture or dislocation. No soft tissue swelling. XR/XR knee RT 2V IMPRESSION: Degenerative arthritic changes medial and patellofemoral compartment right knee. No visible acute fracture or dislocation seen. No abnormal joint effusion. Total left knee prosthesis in alignment.
== END 2021-01-14 08:22 | disposition home or self-care (01) ==
LOC: HO.HOSX 08:21
PROVIDERS: Visit Provider Orthopaedic Surgery
DX: M17.11 Unilateral primary osteoarthritis, right knee (principal)
CPT/HCPCS: 20610; 73560; 73565; 99202; J1100

== ENCOUNTER → 2021-01-19 14:17 | Outpatient (BNVA) | payer MEDICARE, OTHER, SELFPAY | PROVIDERS: PCP Nurse Practitioner Family; Visit Provider Internal Medicine | DX: J44.9 Chronic obstructive pulmonary disease, unspecified (principal); C80.1 Malignant (primary) neoplasm, unspecified; J98.4 Other disorders of lung; R05 Cough | CPT/HCPCS: 99212 ==

== ENCOUNTER 2021-01-22 09:39 | Outpatient (RCR) | payer MEDICARE, OTHER, SELFPAY ==
--- NOTE | 2021-01-22 11:00 | MHC.PT.EP ---
[facility] [place] Office [address] Jayce Angulo [address] [phone] F: [phone] F: [phone] F: [phone] F: [phone] Physical Therapy Plan of Care Date of Evaluation: Date of Surgery: Diagnosis: R knee OA Assessment: 70 y/o M referred to PT with R knee OA. He had L TKA 2015 and now he is feeling 'the same arthritis in the R knee that is progressively worsening. Of note, he has been undergoing treatment for stage 3 adenocarcinoma of the lung (lobectomy 06/14, 9 sessions of chemo, and just finished radiation 3 weeks ago.) His also recently a few weeks ago; he will be going to live with his daughter for the winter in [facility] and [facility]. 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 Examination shows decreased R knee extension, decreased B LE strength, poor balance, and impaired gait pattern. Recommend PT 2x/week for 5 weeks to address impairments, implement HEP, and optimize functional mobility. Frequency and Duration: The patient will be seen 2x/week for 5 weeks Short Term Goals: 3 weeks 1. I with HEP 2. Pt will demonstrate R knee AROM: [id number] 3. Pt will demonstrate R SLR without quad lag [facility] Goals: 5 weeks 1. I with HEP and self management of sx 2. Pt will be able to walk > 20 min with pain < 3/10 3. Improve LE strength by one MMT to facilitate walking Treatment Plan: Modalities to reduce pain, spasms and effusion. Manual therapy to restore motion and function. Therapeutic exercise to improve strength and flexibility. Neuromuscular re-education for posture and balance. Therapeutic activities to return to functional activities of daily living. Electronically signed by: Kateryna Altman PT Please sign and return to therapist. Thank you for your referral.
--- NOTE | 2021-02-15 10:08 | MHC.PT.DC ---
[facility] [place] Office [place] Office [place] Office [address] Jayce Angulo [address] [facility] [phone] F: [phone] F: [phone] F: [phone] F: [phone] Physical Therapy Discharge Report Diagnosis: R knee OA Date of Surgery: Date of Evaluation: 01/22/21 Date of Discharge: 02/15/21 Treatments to Date: 1 Cancellations to Date: 0 No Shows to Date: 0 Discharge Status: Patient Elected to Stop Discharge Summary: Pt called to d/c as he is moving to [place]. Electronically signed by: Kateryna Altman PT Please sign and return to therapist. Thank you for your referral.
== END 2021-02-15 10:08 | disposition home or self-care (01) ==
LOC: HO.PTCHIC 09:39
PROVIDERS: PCP Nurse Practitioner Family; Visit Provider Orthopaedic Surgery
DX: M17.11 Unilateral primary osteoarthritis, right knee (principal); R53.81 Other malaise
CPT/HCPCS: 97110; 97161

== ENCOUNTER 2021-02-04 08:56 | Inpatient (IN) | payer MEDICARE, OTHER, SELFPAY ==
--- NOTE | ~2021-02-04 | XR_ITS ---
EXAMINATION: XR ANKLE, RIGHT CLINICAL INFORMATION: Heel pain COMPARISON: None TECHNIQUE: AP, lateral, and mortise views of the right ankle. FINDINGS: Bone alignment is normal. No fracture or dislocation is seen. The ankle mortise is normal. There are calcaneal spur. Soft tissues are otherwise normal XR/XR ankle RT min 3V IMPRESSION: Calcaneal spurs.
--- NOTE | ~2021-02-04 | CT_ITS ---
EXAMINATION: CT CHEST WITHOUT CONTRAST CLINICAL INFORMATION: History of lung cancer. Question nodule or infiltrate. COMPARISON: None TECHNIQUE: Multidetector volumetric CT imaging of the chest was done. Axial MIP volume rendering provided. Sagittal and coronal reformatted images were obtained. This CT examination was performed using dose optimization techniques as appropriate, variously including the following: *Automated exposure control *Adjustment of mA and/or kV according to patient size (this includes techniques or standardized protocols for targeted exams where dose is matched to indication/reason for exam; i.e. extremities or head) *Use of iterative reconstruction technique DLP: 346 mGy-cm FINDINGS: LUNGS: There are postsurgical changes to the left lower lobe with surgical staple line. There are increased peripheral interstitial markings and areas of consolidation or airspace disease with air bronchograms in the left upper lobe and superior segment of the left lower lobe. There is chronic likely atelectasis or scarring seen in the left lower lobe adjacent to the surgical staple line that appears unchanged. There is a peripheral or subpleural right middle lobe nodule adjacent to the minor fissure measuring 4 mm axial image 30 probably representing a subpleural lymph node that is stable. There is evidence of paraseptal emphysema. There are areas of increased peripheral interstitial markings in the right lung again questionable for mild interstitial lung disease. MEDIASTINUM: There is diffuse mediastinal lymphadenopathy. This does not appear appreciably changed. Larger lymph nodes are upper normal in size, for example a right paratracheal lymph node measuring 1 cm in short axis axial image series 3 and subcarinal lymph node measuring 1.2 cm in short axis axial image 30 series 4 . The heart is enlarged. There is no pericardial effusion. The thoracic aorta is normal in caliber. PLEURA: There is no pleural effusion. No pleural mass or thickening. AXILLA: No lymphadenopathy. UPPER ABDOMEN: There may be diverticulosis of the colon. OSSEOUS STRUCTURES: The bones appear diffusely sclerotic. Focal lesion or fracture is not seen. There are degenerative changes of the spine. CT/CT chest wo con IMPRESSION: Emphysema and question mild peripheral interstitial lung disease. New areas of increased interstitial markings and patchy areas of airspace disease or consolidation seen in the peripheral left upper lobe and superior segment of the left lower lobe. Infection/pneumonia and changes related to interstitial lung disease should be considered . Stable postsurgical changes and scarring or atelectasis left lower lobe.
--- NOTE | ~2021-02-04 | US_ITS ---
EXAMINATION: US VENOUS ULTRASOUND WITH DOPPLER LOWER EXTREMITY, BILATERAL CLINICAL INFORMATION: Bilateral lower extremity pain COMPARISON: None TECHNIQUE: Ultrasound of the deep veins is performed from the hip to the calf with compression sonography and color and pulse Doppler assessment. Spectral analysis with color-flow imaging is performed. FINDINGS: RIGHT: There is normal venous compression and respiratory variation and augmented flow. The visualized common femoral vein, superficial femoral vein, profunda femoral vein, popliteal vein, and the trifurcation region shows no evidence of deep venous thrombosis. There is no significant popliteal fossa cyst. LEFT: There is normal venous compression and respiratory variation and augmented flow. The visualized common femoral vein, superficial femoral vein, profunda femoral vein, popliteal vein, and the trifurcation region shows no evidence of deep venous thrombosis. There is no significant popliteal fossa cyst. If the patient's symptoms persist, followup ultrasound in 5 days 7 days might be of value to exclude proximal propagation from a non-visualized calf vein. US/US venous duplex LE BI IMPRESSION: No DVT demonstrated in the bilateral lower extremities.
--- NOTE | ~2021-02-04 | XR_ITS ---
EXAMINATION: XR CHEST CLINICAL INFORMATION: Leukocytosis COMPARISON: Previous chest x-ray August [address] September 2020 TECHNIQUE: Frontal view of the chest was obtained. FINDINGS: The cardiac and mediastinal contours are stable. There is slight elevation of the left hemidiaphragm. There are surgical clips projecting over the left lower lung. There are increased markings in the central left lower lung questionable for a small infiltrate. This findings may be chronic. There is question of a 1.7 cm nodule or infiltrate in the left upper lung in between the left first and second ribs. The right lung is clear. There is no pleural effusion or pneumothorax. There are degenerative changes of the spine. XR/XR chest 1V IMPRESSION: Postsurgical changes to the left hemithorax. Question left sided infiltrate. Some of these changes may be chronic compared with prior exams.
--- NOTE | ~2021-02-04 | MR_ITS ---
EXAMINATION: MR LUMBAR SPINE WITHOUT CONTRAST CLINICAL INFORMATION: Lower extremity weakness. COMPARISON: No relevant prior imaging available. TECHNIQUE: MRI of the lumbar spine was obtained using routine sequences without contrast. FINDINGS: There is transitional spinal anatomy at the lumbosacral junction with partial sacralization of the L5 vertebral segment. Specifically there is a pseudoarticulation between the left L5 transverse process and the sacrum. Alignment is normal. Vertebral body heights are preserved. No acute bone marrow signal changes. There are mixed predominantly type II degenerative endplate changes at multiple levels. There is loss of intervertebral disc height and T2 signal intensity at multiple levels related to disc degeneration. The tip of the conus medullaris is located at L1. No mass effect on the conus. Visualized distal cord signal intensity is normal. At L1-L2 the annular contour is normal. No canal or neuroforaminal compromise. At L2-L3 there is a left subarticular protrusion superimposed upon a diffusely bulging disc. Bilateral facet degenerative change. Mild canal stenosis. There is asymmetric narrowing of the left subarticular zone with medial displacement and likely compression of left traversing L3 nerve roots. No foraminal nerve root compression. At L3-L4 there is a diffusely bulging disc. Bilateral facet degenerative change. Moderate canal stenosis. There is subtle abutment of the right traversing L4 nerve roots. Partial effacement of perineural fat with mild mass effect on the right L3 foraminal nerve roots. At L4-L5 there is a shallow central protrusion superimposed upon a bulging disc. Bilateral facet degenerative change. Mild canal stenosis. Subarticular zone narrowing causes abutment of the right traversing L5 nerve roots. Mild mass effect on the right L4 foraminal nerve roots. At L5-S1 the annular contour is normal. Bilateral facet degenerative change. No canal stenosis. No mass effect on the traversing or foraminal nerve roots. Limited visualization of the retroperitoneal anatomy reveals a few well marginated benign-appearing cystic lesions within both kidneys. Psoas and paraspinal muscle groups are symmetric. MR/MR lumbar spine wo con IMPRESSION: There is multilevel degenerative spondylosis of the lumbar spine. Moderate canal stenosis at L3-L4. Mild canal stenosis at L2-L3 and L4-L5. There are varying degrees of mass effect on the traversing and foraminal segments of the nerve roots as described above. For instance at L2-L3 there is asymmetric narrowing of the left subarticular zone causing medial displacement and likely compression of the left traversing L3 nerve roots.
--- NOTE | ~2021-02-04 | MR_ITS ---
EXAMINATION: MR BRAIN WITHOUT CONTRAST CLINICAL INFORMATION: Bilateral lower extremity weakness and right arm weakness. COMPARISON: Brain MRI 06/25/2020. TECHNIQUE: Multiplanar, multisequence imaging of the brain was performed without intravenous contrast. FINDINGS: There is no acute infarct, hemorrhage, mass, or extra-axial fluid collection. The ventricles are normal in size without hydrocephalus. A small focus of nonspecific T2 hyperintensity seen within the right upper basal ganglia. The brain parenchyma signal otherwise appears normal. No significant microangiopathy is seen. 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 The major arterial flow voids are preserved at the skull base. There is a right lens replacement. Small amount of right mastoid fluid is seen. Low signal is again seen within the marrow. MR/MR head/brain wo con IMPRESSION: No acute intracranial abnormality. Redemonstration of small chronic lacunar infarcts within the right midbrain and left cerebellum. Redemonstration of nonspecific low signal within the marrow.
--- NOTE | 2021-02-04 09:07 | ECG_ITS ---
Test Reason : WEAKNESS Blood Pressure : / mmHG Vent. Rate : 099 BPM Atrial Rate : 099 BPM P-R Int : 180 ms QRS Dur : 098 ms QT Int : 348 ms P-R-T Axes : 067 -30 031 degrees QTc Int : 446 ms Normal sinus rhythm Left anterior fascicular block Moderate voltage criteria for LVH, may be normal variant ( R in aVL , Bora product ) Abnormal ECG No previous ECGs available Referred By: Janis Carey Electronically Signed By:JOSE BERGERON MD
--- NOTE | 2021-02-04 09:08 | ED_ITS ---
HPI - General Adult General Chief complaint: Weakness Stated complaint: GENERAL WEAKNESS,HX LUNG CA,DM Time Seen by Provider: 02/04/21 08:58 Source: patient and EMS Mode of arrival: EMS Limitations: no limitations History of Present Illness HPI narrative: Patient comes emergency room by EMS. Patient comes from home, lives alone, has good support from family. Patient states that he has bilateral lower extremities pain from the knees down bilaterally but it is worse in the soles of his feet, pt has hard time walking. Patient denies any injuries. Patient states it started approximately at 23:00 (approx 11hrs) Patient denies any recent illnesses. Patient had his last round of chemotherapy for lung cancer in September 2020, and radiation in December 2020. Patient also mentioned that while he was undergoing chemotherapy, his hemoglobin levels dropped significantly, needed a blood transfusion. Patient denies fever, vomiting, diarrhea, URI symptoms Related Data Home Medications Medication Instructions Recorded Confirmed ergocalciferol (vitamin D2) 1,250 1,250 mcg PO Q2W 01/19/21 02/04/21 mcg (50,000 unit) capsule ferrous sulfate 325 mg (65 mg 325 mg PO BID 01/19/21 02/04/21 iron) tablet gabapentin 300 mg capsule 300 mg PO BEDTIME 02/04/21 02/04/21 ipratropium 0.5 mg-albuterol 3 mg 3 ml INHALATION TID-QID PRN 02/04/21 02/04/21 (2.5 mg base)/3 mL nebulization soln Previous Rx's Medication Instructions Recorded lisinopril 10 mg tablet 10 mg PO DAILY #90 tab 07/23/20 pioglitazone 30 mg tablet 30 mg PO DAILY 90 Days #90 tab 07/23/20 simvastatin 20 mg tablet 20 mg PO BEDTIME #90 tab 07/23/20 glipizide 5 mg tablet, extended 5 mg PO DAILY 90 Days #90 tab 01/14/21 release 24 hr Allergies Allergy/AdvReac Type Severity Reaction Status Date / Time No Known Allergies Allergy Verified 01/19/21 14:39 [No Known Allergies*] Review of Systems Review of Systems: Constitutional : No Weight loss, No Fever, No Chills, No Night Sweats, complaining of fatigue and generalized weakness ENT/Mouth : No Hearing loss, No Ear Pain, No Nasal Congestion, No Sinus Pain, No Hoarseness, No sore throat, No Rhinorrhea, No Swallowing Difficulty Eyes: No Eye Pain, No Swelling, No Redness, No Foreign Body, No Discharge, No Vision Changes Cardiovascular : No Chest Pain, No SOB, No Dyspnea on Exertion, No Orthopnea, No Edema, No Palpitations Respiratory : No Cough, No Sputum, No Wheezing, No Smoke Exposure, No Dyspnea Gastrointestinal : No Nausea, No Vomiting, No Diarrhea, No Constipation, No abdominal Pain, No Hematochezia, No Melena Genitourinary : no irregular bleeding, No Dysuria, No Urinary Frequency, No Hematuria, No Urinary Incontinence, No Urgency, No Flank Pain, No Urinary Flow Changes, No Hesitancy Musculoskeletal complaining of leg weakness, plantar to pain, No Myalgias, No Joint Swelling Skin : No Skin Lesions, No rash Neuro : No Weakness, No Numbness, No Paresthesias, No Loss of Consciousness, No Dizziness, No Headache Psych : No Anxiety/Panic, No Depression, No SI/HI/AH/VH, No Social Issues, Heme/Lymph: No Bruising, No Bleeding,No Lymphadenopathy Endocrine : No Polyuria, No Polydipsia, No Temperature Intolerance [facility] Past Medical History Medical History Adenocarcinoma of lung, stage 3 Arthritis CKD (chronic kidney disease) COPD (chronic obstructive pulmonary disease) COPD (chronic obstructive pulmonary disease) Cough Diabetes Dyspnea on exertion HTN (hypertension) Lung nodule Personal history of nicotine dependence Restrictive lung disease Surgical History H/O pneumonectomy History of arthroplasty of left knee History of right cataract extraction Family History Family History Father No problems noted. Mother Diabetes mellitus Social History Social History (Updated 10/21/20 @ 15:48 by Romy Mckinley RN) Household Members: Spouse and None Housing: House Are you a primary child day care provider to a significant other at home: No Do you presently have visiting nurse or other home services: No Alcohol intake: never Patient Tobacco Use Status: Former Tobacco user Quit Date: 11/30/19 Tobacco use type: Cigarette Years Smoked: 55 Second Hand Smoke Exposure: No Use of substances other than those prescribed or required for medical reasons: No Advance Directives: No Advance Directives Information Provided: No Physical Exam Vital Signs: Vital Signs: Last Vital Signs Temp 98.4 F 02/04/21 13:28 Pulse 70 02/04/21 14:46 Resp 20 02/04/21 14:46 BP 121/55 L 02/04/21 14:46 Pulse Ox 98 02/04/21 14:46 Body Mass Index 33.5 Const: Other: Appearance: Alert. Oriented X3. No acute distress. Eyes: Pupils equal, round and reactive to light. ENT: Pharynx normal. Neck: Normal inspection. Neck supple. No lymph nodes noted. No crepitus CVS: Normal heart rate and rhythm. Pulses normal. Normal S1 and S2 Respiratory: No respiratory distress. Breath sounds normal on the right side, decreased breath sounds left side, No Wheezing. No rales Abdomen: Soft and nontender. No rigidity. No distention. Skin: Skin warm and dry. Normal skin color. Normal skin turgor. Extremities: Trace pitting edema bilaterally. No Lacerations. No Rash, pain to palpation over the right heel Neuro: Oriented X 3. No sensory deficit. Moving all extermities. No slurred speech. Patient has a hard time walking, needs asistance to get up from sitting position, complaining of pain in his bilateral lower extremities. Left arm strength 5/5, right Arm strength 4/5 Course Course Course Narrative: Patient has acute weakness starting yesterday 23:00. Here in the emergency room, patient states that the reason that he is having trouble getting up is due to pain in his lower extremities rather than weakness. However, patient needs a one-person assist to transfer from bed to wheelchair Troponin 1 Is positive, no EKG changes, troponin 2. Pending for 12:30, no CP/SOB MRI, UA, CXR pending I discussed the patient with Dr. Phillips. Patient is outside of the window of treatment. We will skip head CT and head/neck CTA and get an MRI Patient has surgical clips in his left lung, discussed with MRI hostel parent, patient may get the MRI MRI negative for any acute pathology Ankle x-ray only shows a calcaneal spur. ESR and CRP are pending, troponin 2. Is stable. Physical therapy worked with the patient, patient has trouble getting up by himself, physical therapy recommends short-term rehab CT scan of the chest pending. Sign-out given to Dr. Larios Medical Decision Making Lab Data Result diagrams: 02/04/21 09:38 02/04/21 09:38 Labs: Lab Results 02/04/21 02/04/21 02/04/21 Range/Units 09:38 09:38 09:38 WBC 14.3 H (4.8-10.8) X10*3/uL RBC 3.45 L (4.60-5.80) X10*6/uL Hgb 9.7 L (14.0-18.0) g/dl Hct 31.1 L (42-52) % MCV 90.1 (80-98) fL MCH 28.1 (27.0-33.0) pg MCHC 31.2 (31.0-36.0) g/dl RDW 13.7 (11.0-16.0) % Plt Count 274 (160-400) X10*3/uL MPV 9.8 (9.4-12.4) fL Immature Gran % (Auto) 0.7 H (0.0-0.4) % Neut % (Auto) 82.6 H (45-73) % Lymph % (Auto) 6.7 L (20-40) % [place] % (Auto) 9.8 (2-11) % Eos % (Auto) 0.1 (0-4) % Baso % (Auto) 0.1 (0-2) % Lymph # (Auto) 1.0 L (1.2-4.9) X10*3/uL [place] # (Auto) 1.4 H (0.1-1.2) X10*3/uL Eos # (Auto) 0.0 (0.0-0.4) X10*3/uL Baso # (Auto) 0.0 (0.0-0.2) X10*3/uL Abs Immat Gran (auto) 0.10 H (0.00-0.03) X10*3/uL Absolute Neuts (auto) 11.8 H (2.0-8.3) X10*3/uL Absolute Nucleated RBC 0.000 (0.0-0.012) X10*3/uL Nucleated RBC % (auto) 0.0 (0.0-0.2) /100WBC ESR (0-15) MM/HR PT (9.9-13.0) SEC INR (0.9-1.1) Sodium 139 (135-145) mmol/L Potassium 5.1 (3.3-5.1) mmol/L Chloride 108 (96-108) mmol/L Carbon Dioxide 23 (22-29) mmol/L Anion Gap 13 (12-20) BUN 49 H (9-16) mg/dL Creatinine 2.88 H (0.5-1.4) mg/dL Estim Creat Clear Calc 26.9 Estimated GFR 22 Random Glucose 204 H (60-115) mg/dL Uric Acid 6.4 (3.4-7.0) mg/dL Calcium 9.0 (8.4-10.2) mg/dL Magnesium 1.9 (1.6-2.6) mg/dL Total Bilirubin < 0.2 (0.0-1.0) mg/dL Direct Bilirubin < 0.2 (0.0-0.5) mg/dL AST 12 (5-37) U/L ALT 12 (0-40) U/L Alkaline Phosphatase 91 (39-117) U/L Troponin I High Sens 136.9 H* (<3.5-35.0) ng/L C-Reactive Protein 4.61 H (< or = 0.50) mg/dL B-Natriuretic Peptide (<100) pg/mL Total Protein 7.2 (6.5-8.0) g/dL Albumin 3.6 (3.5-5.0) g/dL Urine Color Urine Appearance Urine pH (5.0-8.0) Ur Specific [place] (1.005-1.025) Urine Protein (NEG-TRACE) MG/DL Urine Glucose (UA) (NEG) MG/DL Urine Ketones (NEG) MG/DL Urine Blood (NEG) Urine Nitrite (NEG) Ur Leukocyte Esterase (NEG) Urine RBC (0) /HPF Urine WBC (0-4) /HPF Ur Squamous Epith Cells /LPF Amorphous Sediment /LPF Urine Bacteria /LPF COVID-19 (CATY) (Negative) COVID-19 Clin Com 02/04/21 02/04/21 02/04/21 Range/Units 09:38 09:38 09:39 WBC (4.8-10.8) X10*3/uL RBC (4.60-5.80) X10*6/uL Hgb (14.0-18.0) g/dl Hct (42-52) % MCV (80-98) fL MCH (27.0-33.0) pg MCHC (31.0-36.0) g/dl RDW (11.0-16.0) % Plt Count (160-400) X10*3/uL MPV (9.4-12.4) fL Immature Gran % (Auto) (0.0-0.4) % Neut % (Auto) (45-73) % Lymph % (Auto) (20-40) % [place] % (Auto) (2-11) % Eos % (Auto) (0-4) % Baso % (Auto) (0-2) % Lymph # (Auto) (1.2-4.9) X10*3/uL [place] # (Auto) (0.1-1.2) X10*3/uL Eos # (Auto) (0.0-0.4) X10*3/uL Baso # (Auto) (0.0-0.2) X10*3/uL Abs Immat Gran (auto) (0.00-0.03) X10*3/uL Absolute Neuts (auto) (2.0-8.3) X10*3/uL Absolute Nucleated RBC (0.0-0.012) X10*3/uL Nucleated RBC % (auto) (0.0-0.2) /100WBC ESR (0-15) MM/HR PT 11.6 (9.9-13.0) SEC INR 1.0 (0.9-1.1) Sodium (135-145) mmol/L Potassium (3.3-5.1) mmol/L Chloride (96-108) mmol/L Carbon Dioxide (22-29) mmol/L Anion Gap (12-20) BUN (9-16) mg/dL Creatinine (0.5-1.4) mg/dL Estim Creat Clear Calc Estimated GFR Random Glucose (60-115) mg/dL Uric Acid (3.4-7.0) mg/dL Calcium (8.4-10.2) mg/dL Magnesium (1.6-2.6) mg/dL Total Bilirubin (0.0-1.0) mg/dL Direct Bilirubin (0.0-0.5) mg/dL AST (5-37) U/L ALT (0-40) U/L Alkaline Phosphatase (39-117) U/L Troponin I High Sens (<3.5-35.0) ng/L C-Reactive Protein (< or = 0.50) mg/dL B-Natriuretic Peptide 340 H (<100) pg/mL Total Protein (6.5-8.0) g/dL Albumin (3.5-5.0) g/dL Urine Color Urine Appearance Urine pH (5.0-8.0) Ur Specific [place] (1.005-1.025) Urine Protein (NEG-TRACE) MG/DL Urine Glucose (UA) (NEG) MG/DL Urine Ketones (NEG) MG/DL Urine Blood (NEG) Urine Nitrite (NEG) Ur Leukocyte Esterase (NEG) Urine RBC (0) /HPF Urine WBC (0-4) /HPF Ur Squamous Epith Cells /LPF Amorphous Sediment /LPF Urine Bacteria /LPF COVID-19 (CATY) Negative (Negative) COVID-19 Clin Com See Note 02/04/21 02/04/21 02/04/21 Range/Units 11:40 13:03 14:07 WBC (4.8-10.8) X10*3/uL RBC (4.60-5.80) X10*6/uL Hgb (14.0-18.0) g/dl Hct (42-52) % MCV (80-98) fL MCH (27.0-33.0) pg MCHC (31.0-36.0) g/dl RDW (11.0-16.0) % Plt Count (160-400) X10*3/uL MPV (9.4-12.4) fL Immature Gran % (Auto) (0.0-0.4) % Neut % (Auto) (45-73) % Lymph % (Auto) (20-40) % [place] % (Auto) (2-11) % Eos % (Auto) (0-4) % Baso % (Auto) (0-2) % Lymph # (Auto) (1.2-4.9) X10*3/uL [place] # (Auto) (0.1-1.2) X10*3/uL Eos # (Auto) (0.0-0.4) X10*3/uL Baso # (Auto) (0.0-0.2) X10*3/uL Abs Immat Gran (auto) (0.00-0.03) X10*3/uL Absolute Neuts (auto) (2.0-8.3) X10*3/uL Absolute Nucleated RBC (0.0-0.012) X10*3/uL Nucleated RBC % (auto) (0.0-0.2) /100WBC ESR 92 H (0-15) MM/HR PT (9.9-13.0) SEC INR (0.9-1.1) Sodium (135-145) mmol/L Potassium (3.3-5.1) mmol/L Chloride (96-108) mmol/L Carbon Dioxide (22-29) mmol/L Anion Gap (12-20) BUN (9-16) mg/dL Creatinine (0.5-1.4) mg/dL Estim Creat Clear Calc Estimated GFR Random Glucose (60-115) mg/dL Uric Acid (3.4-7.0) mg/dL Calcium (8.4-10.2) mg/dL Magnesium (1.6-2.6) mg/dL Total Bilirubin (0.0-1.0) mg/dL Direct Bilirubin (0.0-0.5) mg/dL AST (5-37) U/L ALT (0-40) U/L Alkaline Phosphatase (39-117) U/L Troponin I High Sens 115.9 H* (<3.5-35.0) ng/L C-Reactive Protein (< or = 0.50) mg/dL B-Natriuretic Peptide (<100) pg/mL Total Protein (6.5-8.0) g/dL Albumin (3.5-5.0) g/dL Urine Color YELLOW Urine Appearance CLEAR Urine pH 6.0 (5.0-8.0) Ur Specific [place] 1.020 (1.005-1.025) Urine Protein 2+ H (NEG-TRACE) MG/DL Urine Glucose (UA) 100 H (NEG) MG/DL Urine Ketones NEG (NEG) MG/DL Urine Blood TRACE (NEG) Urine Nitrite NEG (NEG) Ur Leukocyte Esterase NEG (NEG) Urine RBC 0-2 (0) /HPF Urine WBC 0 (0-4) /HPF Ur Squamous Epith Cells TRACE /LPF Amorphous Sediment 1+ /LPF Urine Bacteria NONE /LPF COVID-19 (CATY) (Negative) COVID-19 Clin Com Imaging Data Chest x-ray: Radiologist's impression: The cardiac and mediastinal contours are stable. There is slight elevation of the left hemidiaphragm. There are surgical clips projecting over the left lower lung. There are increased markings in the central left lower lung questionable for a small infiltrate. This findings may be chronic. There is question of a 1.7 cm nodule or infiltrate in the left upper lung in between the left first and second ribs. The right lung is clear. There is no pleural effusion or pneumothorax. There are degenerative changes of the spine. XR/XR chest 1V IMPRESSION: Postsurgical changes to the left hemithorax. Question left sided infiltrate. Some of these changes may be chronic compared with prior exams. MRI - head: Radiologist's impression: There is no acute infarct, hemorrhage, mass, or extra-axial fluid collection. The ventricles are normal in size without hydrocephalus. A small focus of nonspecific T2 hyperintensity seen within the right upper basal ganglia. The brain parenchyma signal otherwise appears normal. No significant microangiopathy is seen. 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 The major arterial flow voids are preserved at the skull base. There is a right lens replacement. Small amount of right mastoid fluid is seen. Low signal is again seen within the marrow. MR/MR head/brain wo con IMPRESSION: No acute intracranial abnormality. Redemonstration of small chronic lacunar infarcts within the right midbrain and left cerebellum. Redemonstration of nonspecific low signal within the marrow. Discharge Plan Discharge Clinical Impression: Weakness, Pain of right heel Prescriptions: No Action glipizide 5 mg tablet extended release 24hr 5 mg PO DAILY 90 Days Qty: 90 RF: 0 ipratropium-albuterol 0.5 mg-3 mg(2.5 mg base)/3 mL solution for nebulization 3 ml inhalation TID-QID PRN (Reason: wheezing/SOB.) RF: 0 gabapentin 300 mg capsule 300 mg PO BEDTIME RF: 0 lisinopril 10 mg tablet 10 mg PO DAILY Qty: 90 RF: 2 pioglitazone 30 mg tablet 30 mg PO DAILY 90 Days Qty: 90 RF: 2 simvastatin 20 mg tablet 20 mg PO BEDTIME Qty: 90 RF: 2 ferrous sulfate 325 mg (65 mg iron) tablet 325 mg PO BID RF: 0 ergocalciferol (vitamin D2) 1,250 mcg (50,000 unit) capsule 1,250 mcg PO Q2W RF: 0
[2021-02-04 09:09] VITALS: BP 149/62; BP 94/60; PULSE 97; TEMP 36.6; O2SAT 99; BMI 33.5
[2021-02-04 09:45] LABS: MANUAL DIFF FLAG NO
[2021-02-04 09:47] LABS: Basophils Percent Auto 0.1 % (0-2); Eosinophils Percent Auto 0.1 % (0-4); Hematocrit 31.1 % (42-52); Hemoglobin 9.7 g/dl (14.0-18.0); Imm Gran Pct Auto 0.7 % (0.0-0.4); Lymphocytes Percent Auto 6.7 % (20-40); Mean Corpuscular HGB Conc 31.2 g/dl (31.0-36.0); Mean Corpuscular Hemoglobin 28.1 pg (27.0-33.0); Mean Corpuscular Volume 90.1 fL (80-98); Mean Platelet Volume 9.8 fL (9.4-12.4); Monocytes Absolute Auto 1.4 X10*3/uL (0.1-1.2); Monocytes Percent Auto 9.8 % (2-11); Neutrophils Absolute Auto 11.8 X10*3/uL (2.0-8.3); Neutrophils Percent Auto 82.6 % (45-73); Platelet Count 274 X10*3/uL (160-400); Red Blood Count 3.45 X10*6/uL (4.60-5.80); Red Cell Distribution Width 13.7 % (11.0-16.0); White Blood Count 14.3 X10*3/uL (4.8-10.8)
[2021-02-04 10:01] LABS: COVID-19 Test Negative (Negative)
[2021-02-04 10:02] LABS: Prothrombin Time 11.6 SEC (9.9-13.0)
[2021-02-04 10:05] LABS: Alanine Aminotransferase 12 U/L (0-40); Albumin Level 3.6 g/dL (3.5-5.0); Alkaline Phosphatase 91 U/L (39-117); Anion Gap 13 (12-20); Aspartate Amino Transferase 12 U/L (5-37); Bilirubin Direct < 0.2 mg/dL (0.0-0.5); Bilirubin Total < 0.2 mg/dL (0.0-1.0); Blood Urea Nitrogen 49 mg/dL (9-16); Carbon Dioxide 23 mmol/L (22-29); Chloride 108 mmol/L (96-108); Creatinine Clr Calc Pharmacy 26.9; Estimated Glomerular Filt Rate 22; Glucose Random 204 mg/dL (60-115); Magnesium 1.9 mg/dL (1.6-2.6); Potassium 5.1 mmol/L (3.3-5.1); Sodium 139 mmol/L (135-145); Total Protein 7.2 g/dL (6.5-8.0)
--- NOTE | 2021-02-04 10:12 | PHA.MEDREC ---
Pharmacy Consult ? Medication Reconciliation Pharmacy has completed the medication reconciliation. There are no remarkable issues for provider's attention. Arianne Serrato, LucyD
[2021-02-04 10:14] LABS: Troponin-I High Sensitivity 136.9 ng/L (<3.5-35.0)
[2021-02-04 10:18] LABS: B Type Natriuretic Peptide 340 pg/mL (<100)
--- NOTE | 2021-02-04 11:01 | PC.NURSE ---
Pt assisted out of bed with 2 RN's in order to assess his ability to ambulate. He required two minimum assists with mildly unsteady gait and c/o pain/ needles to the bottom of his R foot, causing him to have decreased ability to bear weight on his RLE (per the pt.) The pt took 5-6 steps away from his stretcher, with assistance, and was asstsed back into bed safely. He is currently resting in bed awaiting Md dispo. Pt's brother in law, an [facility] neurologist, came to bedside briefly to check on pt.
[2021-02-04 11:49] LABS: Appearance Urine CLEAR; Color Urine YELLOW; Glucose Urine UA 100 MG/DL (NEG); Leukocyte Esterase Urine NEG (NEG); Nitrite Urine NEG (NEG); UACC Culture Trigger NO; Urine Blood TRACE (NEG); Urine Ketones NEG (NEG); Urine Protein 2+ MG/DL (NEG-TRACE)
--- NOTE | 2021-02-04 12:14 | PC.NURSE ---
Off unit to MRI at this time
[2021-02-04 12:38] LABS: Amorphous Sediment Urine 1+ /LPF; RBC Urine 0-2 /HPF (0); Squamous Epithelial Cell Urine TRACE /LPF; WBC Urine 0 /HPF (0-4)
[2021-02-04 13:28] VITALS: BP 154/55; PULSE 77; RESP 14; TEMP 36.9; O2SAT 98
[2021-02-04 13:42] LABS: Troponin-I High Sensitivity 115.9 ng/L (<3.5-35.0)
--- NOTE | 2021-02-04 14:17 | PC.NURSE ---
PT at bedside with patient, will assist pt to bathroom per his request
[2021-02-04 14:22] LABS: C Reactive Protein 4.61 mg/dL (< or = 0.50)
[2021-02-04 14:25] VITALS: BP 154/55; PULSE 77; O2SAT 98
[2021-02-04 14:35] LABS: Uric Acid 6.4 mg/dL (3.4-7.0)
--- NOTE | 2021-02-04 14:42 | PC.NURSE ---
I assisted the pt to the bathroom at this time. He requested wheelchair transport to the bathroom. Once in the bathroom he was able to transfer him self with one stand by assist from the wheelchair to the toilet with slow and slightly unsteady gait. The pt voided without difficulty and following was able to transfer self from toilet to sink to wash his hands and then back into the wheelchair with one stand by assist.
[2021-02-04 14:46] VITALS: BP 121/55; PULSE 70; RESP 20; O2SAT 98
[2021-02-04 15:15] LABS: Erythrocyte Sedimentation Rate 92 MM/HR (0-15)
--- NOTE | 2021-02-04 17:05 | PC.NURSE ---
Plan for pt to have MRI of lumbar spine tomorrow and will likely transfer to [facility] when resulted
--- NOTE | 2021-02-04 17:18 | MHC.CM.ED ---
CM met with patient. A&Ox3. HCP on file. HCP/ [facility] in July 2020. Dr. Phillips is the alternate HCP ([phone]). Pt requests that Dr. Finch be contacted with questions, concerns and updates, not his son Shon. Pt is fully vaccinated with Moderna 05/22/20 and 06/22/20. Referrals placed to AR and STR. PT recommends STR. [facility] is interested and will offer a bed tomorrow, pending results of lumbar MRI. Pt is agreeable to STR at [facility]. HCP/Dr. Phillips (brother in law) agrees with discharge plan. Pt lives alone. States he has [facility]STRUMENT [employer]ST[employer] services 3 days/week, 1.5 hours a day from [facility]. Will attempt to verify in am. Pt uses a cane. D/C plan is acute rehab tomorrow 02/05. Transportation provided by [facility]. CM to follow for d/c needs.
--- NOTE | 2021-02-04 17:22 | PC.NURSE ---
The pt was able to ambulate from his room to the bathroom and back to his room with a walker with one stand by assist with steady gait.
--- NOTE | 2021-02-04 17:24 | PC.NURSE ---
To MRI via wheelchair
--- NOTE | 2021-02-04 17:31 | MHC.CM.ED ---
Dr. Larios will admit pt for BRISEYDA pneumonia. Pt and Dr. Alan winter Will alert [facility] and ask them to follow for possible STR needs at discharge. CM to follow for d/c needs.
--- NOTE | 2021-02-04 18:16 | MHC.CM.PN ---
Addendum entered by Desiree Bullard 02/04/21 18:20: IMM reviewed and signed per protocol 02/04/21@1735. Original Note: Pt will be admitted for BRISEYDA pneumonia. PT and HCP/Dr. Phillips aware. Will need to revisit D/C plan. Requested [facility] to follow. CM to follow for d/c needs.
[2021-02-04] MEDS: cefTRIAXone sodium 1 GM in 0.9 % Sodium Chloride 50 ML IV (18:26)
[2021-02-04] MEDS: Azithromycin 500 MG in 0.9 % Sodium Chloride 250 ML 125 MG IV (19:06)
--- NOTE | 2021-02-04 19:56 | P.HPHOSP_ITS ---
History of Present Illness Date of Service: 02/04/21 Chief Complaint: Generalized weakness 70-year-old male with a past medical history of hypertension, hyperlipidemia, diabetes, COPD, history of tobacco dependence, pulmonary nodule, osteoarthritis, history of lung cancer was on chemo and radiotherapy, history of anemia requiring blood transfusion presented to the hospital with a chief complaint of generalized weakness/bilateral lower extremity pains. Patient reported that over the past few days has been not feeling well complains of pain in both his knees and feet and had difficulty walking; Denies any numbness tingling or focal weakness. Patient denied any chest pain palpitations lightheadedness or dizziness. Denies any shortness of breath. Denies any fever chills. Denies any urinary symptoms. ER course: Per ER team patient had difficulty ambulating secondary to pain in his bilateral lower extremities; discussed with Dr. Phillips neurology; exam was nonfocal; MRI brain was done which showed no acute findings; MRI of the L-spine is pending to check for any metastatic spine disease. CT of the chest showed left upper lobe pneumonia-given antibiotics. Admitted for further management. [facility] Medical History Adenocarcinoma of lung, stage 3 Arthritis CKD (chronic kidney disease) COPD (chronic obstructive pulmonary disease) COPD (chronic obstructive pulmonary disease) Cough Diabetes Dyspnea on exertion HTN (hypertension) Lung nodule Personal history of nicotine dependence Restrictive lung disease Family History Father No problems noted. Mother Diabetes mellitus Pertinent family history: as above Surgical History H/O pneumonectomy History of arthroplasty of left knee History of right cataract extraction Social History (Updated 10/21/20 @ 15:48 by Romy Mckinley RN) Household Members: Spouse and None Housing: House Are you a primary resident care technician to a significant other at home: No Do you presently have visiting nurse or other home services: No Alcohol intake: never Patient Tobacco Use Status: Former Tobacco user Quit Date: 11/30/19 Tobacco use type: Cigarette Years Smoked: 55 Second Hand Smoke Exposure: No Use of substances other than those prescribed or required for medical reasons: No Advance Directives: Yes Advance Directives on File: Yes Advance Directives Date on File: 02/04/21 service: No Current occupational status: retired Meds Allergies Allergy/AdvReac Type Severity Reaction Status Date / Time No Known Allergies Allergy Verified 01/19/21 14:39 [No Known Allergies*] Active Medications: Current Medications Albuterol/Ipratropium (Albuterol/Iprat 2.5/0.5mg 3 Ml Ampul.Neb) 3 ml INHALE QID PRN PRN Reason: wheezing/SOB. Ergocalciferol (Ergocalciferol (Vitamin D2) 1,250 Mcg Capsule) 1,250 mcg PO Q2W ROB Gabapentin (Gabapentin 300 Mg Capsule) 300 mg PO BEDTIME ROB Non-Formulary Medication (Ferrous Sulfate) 325 mg PO BID ROB Non-Formulary Medication (Simvastatin) 20 mg PO BEDTIME [facility] Consult (Consult Rx Perform Med Rec) 1 each MISCELLANE ONCE PRN PRN Reason: Consult order Pioglitazone HCl (Pioglitazone Hcl 30 Mg Tablet) 30 mg PO DAILY [facility] Home Medications Medication Instructions Recorded Confirmed Last Taken Type ergocalciferol (vitamin D2) 1,250 1,250 mcg PO Q2W 01/19/21 02/04/21 Unknown History mcg (50,000 unit) capsule ferrous sulfate 325 mg (65 mg 325 mg PO BID 01/19/21 02/04/21 02/03/21 History iron) tablet gabapentin 300 mg capsule 300 mg PO BEDTIME 02/04/21 02/04/21 02/03/21 History ipratropium 0.5 mg-albuterol 3 mg 3 ml INHALATION TID-QID PRN 02/04/21 02/04/21 02/03/21 History (2.5 mg base)/3 mL nebulization soln Physical Exam Vital Signs and Narrative: Vital Signs: Last Vital Signs Temp 98.4 F 02/04/21 13:28 Pulse 70 02/04/21 14:46 Resp 20 02/04/21 14:46 BP 121/55 L 02/04/21 14:46 Pulse Ox 98 02/04/21 14:46 Body Mass Index 33.5 Results Labs CBC and Chem 7: 02/04/21 09:38 02/04/21 09:38 Labs: Laboratory Results - last 24 hr 02/04/21 02/04/21 02/04/21 09:38 09:38 09:38 MCV 90.1 MCH 28.1 MCHC 31.2 RDW 13.7 Plt Count 274 MPV 9.8 Immature Gran % (Auto) 0.7 H Neut % (Auto) 82.6 H Lymph % (Auto) 6.7 L [place] % (Auto) 9.8 Eos % (Auto) 0.1 Baso % (Auto) 0.1 Lymph # (Auto) 1.0 L [place] # (Auto) 1.4 H Eos # (Auto) 0.0 Baso # (Auto) 0.0 Abs Immat Gran (auto) 0.10 H Absolute Neuts (auto) 11.8 H Absolute Nucleated RBC 0.000 Nucleated RBC % (auto) 0.0 ESR PT INR Anion Gap 13 Estim Creat Clear Calc 26.9 Estimated GFR 22 Random Glucose 204 H Lactic Acid Uric Acid 6.4 Calcium 9.0 Magnesium 1.9 Total Bilirubin < 0.2 Direct Bilirubin < 0.2 AST 12 ALT 12 Alkaline Phosphatase 91 Troponin I High Sens 136.9 H* C-Reactive Protein 4.61 H B-Natriuretic Peptide Total Protein 7.2 Albumin 3.6 Urine Color Urine Appearance Urine pH Ur Specific Festus Urine Protein Urine Glucose (UA) Urine Ketones Urine Blood Urine Nitrite Ur Leukocyte Esterase Urine RBC Urine WBC Ur Squamous Epith Cells Amorphous Sediment Urine Bacteria COVID-19 ([facility]) COVID-[employer] Com 02/04/21 02/04/21 02/04/21 09:38 09:38 09:39 MCV MCH MCHC RDW Plt Count MPV Immature Gran % (Auto) Neut % (Auto) Lymph % (Auto) [place] % (Auto) Eos % (Auto) Baso % (Auto) Lymph # (Auto) [place] # (Auto) Eos # (Auto) Baso # (Auto) Abs Immat Gran (auto) Absolute Neuts (auto) Absolute Nucleated RBC Nucleated RBC % (auto) ESR PT 11.6 INR 1.0 Anion Gap Estim Creat Clear Calc Estimated GFR Random Glucose Lactic Acid Uric Acid Calcium Magnesium Total Bilirubin Direct Bilirubin AST ALT Alkaline Phosphatase Troponin I High Sens C-Reactive Protein B-Natriuretic Peptide 340 H Total Protein Albumin Urine Color Urine Appearance Urine pH Ur Specific Festus Urine Protein Urine Glucose (UA) Urine Ketones Urine Blood Urine Nitrite Ur Leukocyte Esterase Urine RBC Urine WBC Ur Squamous Epith Cells Amorphous Sediment Urine Bacteria COVID-19 ([facility]) Negative [employer] [facility] Com See Note 02/04/21 02/04/2121 11:40 13:03 14:07 MCV MCH MCHC RDW Plt Count MPV Immature Gran % (Auto) Neut % (Auto) Lymph % (Auto) [place] % (Auto) Eos % (Auto) Baso % (Auto) Lymph # (Auto) [place] # (Auto) Eos # (Auto) Baso # (Auto) Abs Immat Gran (auto) Absolute Neuts (auto) Absolute Nucleated RBC Nucleated RBC % (auto) ESR 92 H PT INR Anion Gap Estim Creat Clear Calc Estimated GFR Random Glucose Lactic Acid Uric Acid Calcium Magnesium Total Bilirubin Direct Bilirubin AST ALT Alkaline Phosphatase Troponin I High Sens 115.9 H* C-Reactive Protein B-Natriuretic Peptide Total Protein Albumin Urine Color YELLOW Urine Appearance CLEAR Urine pH 6.0 Ur Specific Festus 1.020 Urine Protein 2+ H Urine Glucose (UA) 100 H Urine Ketones NEG Urine Blood TRACE Urine Nitrite NEG Ur Leukocyte Esterase NEG Urine RBC 0-2 Urine WBC 0 Ur Squamous Epith Cells TRACE Amorphous Sediment 1+ Urine Bacteria NONE COVID-19 ([facility]) COVID-19 Clin Com 02/04/21 18:07 MCV MCH MCHC RDW Plt Count MPV Immature Gran % (Auto) Neut % (Auto) Lymph % (Auto) [place] % (Auto) Eos % (Auto) Baso % (Auto) Lymph # (Auto) [place] # (Auto) Eos # (Auto) Baso # (Auto) Abs Immat Gran (auto) Absolute Neuts (auto) Absolute Nucleated RBC Nucleated RBC % (auto) ESR PT INR Anion Gap Estim Creat Clear Calc Estimated GFR Random Glucose Lactic Acid 1.0 Uric Acid Calcium Magnesium Total Bilirubin Direct Bilirubin AST ALT Alkaline Phosphatase Troponin I High Sens C-Reactive Protein B-Natriuretic Peptide Total Protein Albumin Urine Color Urine Appearance Urine pH Ur Specific Festus Urine Protein Urine Glucose (UA) Urine Ketones Urine Blood Urine Nitrite Ur Leukocyte Esterase Urine RBC Urine WBC Ur Squamous Epith Cells Amorphous Sediment Urine Bacteria COVID-19 ([facility]) COVID-19 Clin Com Imaging Radiologist's Impressions: Impressions Chest X-Ray 02/04/21 10:36 IMPRESSION: Postsurgical changes to the left hemithorax. Question left sided infiltrate. Some of these changes may be chronic compared with prior exams. Brain MRI 02/04/21 11:08 IMPRESSION: No acute intracranial abnormality. Redemonstration of small chronic lacunar infarcts within the right midbrain and left cerebellum. Redemonstration of nonspecific low signal within the marrow. Chest CT 02/04/21 12:04 IMPRESSION: Emphysema and question mild peripheral interstitial lung disease. New areas of increased interstitial markings and patchy areas of airspace disease or consolidation seen in the peripheral left upper lobe and superior segment of the left lower lobe. Infection/pneumonia and changes related to interstitial lung disease should be considered . Stable postsurgical changes and scarring or atelectasis left lower lobe. Ankle X-Ray 02/04/21 13:40 IMPRESSION: Calcaneal spurs. Assessment and Plan (1) Weakness: Status: Acute (2) Pneumonia: Qualifiers: Laterality: left Lung location: upper lobe of lung Pneumonia type: due to unspecified organism Qualified Code(s): J18.9 - Pneumonia, unspecified o rganism Status: Acute (3) Adenocarcinoma: Status: Acute (4) Diabetes: Status: Acute 70-year-old male with a past medical history of hypertension, hyperlipidemia, diabetes, COPD, history of tobacco dependence, pulmonary nodule, osteoarthritis, history of lung cancer was on chemo and radiotherapy, history of anemia requiring blood transfusion presented to the hospital with a chief complaint of generalized weakness/bilateral lower extremity pains. Generalized weakness/bilateral lower extremity pain: Exam nonfocal. Evaluated by neurology. MRI brain showed no acute findings Fall precaution/PT/OT eventually. Will also obtain venous duplex Left upper lobe pneumonia: Continue ceftriaxone azithromycin. Infectious Disease consult. Mild JULES on CKD: Hold home lisinopril. Gentle IV fluids. Indeterminate troponins: Likely reduced clearance from renal insufficiency. Patient denies any chest pain. EKG nonischemic. Will obtain echocardiogram. Telemetry. Cardiology consult. Right Ankle pain: ROM intact; x ray showed calcaneal spur History of COPD: Stable. DuoNebs p.r.n. Diabetes:c/w home oral agents; pt denied insulin sliding scale. DVT prophylaxis: Lovenox Code status: Full code Quality Stroke Does the patient have a stroke diagnosis?: No VTE Prior VTE?: No VTE Risk Level:: Medical - moderate - high VTE Device Contraindication: Treatment Not Indicated VTE Drug Contraindication: N/A - Med Ordered
--- NOTE | 2021-02-04 20:53 | PC.NURSE ---
pt POC 273 pt is ordered insulin based on sliding scale but pt states he does not want insulin as he manages his diabetes with oral medications at home Hospitalist (Mary) on ED floor, notified by this nurse
[2021-02-04 20:54] LABS: Glucose, Whole Blood 273 mg/dL (60-115)
[2021-02-04] MEDS: Gabapentin 300 MG CAPSULE PO (22:19)
[2021-02-04] MEDS: glipiZIDE XL 5 MG TAB.ER.24 PO (22:19)
[2021-02-04] MEDS: Atorvastatin Calcium 10 MG TABLET PO (22:19)
[2021-02-04] MEDS: Ferrous Sulfate 324 MG TABLET.DR PO (22:19)
[2021-02-04] MEDS: Enoxaparin Sodium 30 MG/0.3 ML SYRINGE SUBCUT (22:21)
[2021-02-04] MEDS: 0.9 % Sodium Chloride 1,000 ML 50 ML IVCONT (22:25)
[2021-02-04 22:26] VITALS: BP 141/67; PULSE 75; RESP 16; O2SAT 98
--- NOTE | 2021-02-04 22:32 | PC.NURSE ---
pt requesting medication for sleep. pt also asked this nurse about his home blood pressure medications as he has not taken it today. med rec done by pharmacy but no BP meds on JUN. hospitalist notified of pt requests
[2021-02-04] MEDS: Melatonin 3 MG TABLET 6 MG PO (23:03)
[2021-02-05] VITALS (7 sets, daily range): BP systolic 131–150; BP diastolic 54–69; PULSE 76–84; RESP 16–18; TEMP 36.2–36.3; O2SAT 97–98
--- NOTE | 2021-02-05 04:16 | PC.NURSE ---
pt requesting to go to the bathroom. gait steady with walker. denies any dizziness or lightheadedness when ambulating. denies any pain in feet while ambulating. pt back in room. 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 fluids resumed- NS @ 50ml/hr. call suh in reach
[2021-02-05 07:30] LABS: Hemoglobin 9.1 g/dl (14.0-18.0); MANUAL DIFF FLAG SCAN; PLT CLUMP 1; SCAN SMEAR FLAG 1
[2021-02-05 07:32] LABS: Basophils Percent Auto 0.5 % (0-2); Eosinophils Absolute Auto 0.4 X10*3/uL (0.0-0.4); Eosinophils Percent Auto 5.2 % (0-4); Hematocrit 29.3 % (42-52); Imm Gran Abs Auto 0.03 X10*3/uL (0.00-0.03); Imm Gran Pct Auto 0.4 % (0.0-0.4); Lymphocytes Absolute Auto 1.4 X10*3/uL (1.2-4.9); Lymphocytes Percent Auto 19.2 % (20-40); Mean Corpuscular HGB Conc 31.1 g/dl (31.0-36.0); Mean Corpuscular Hemoglobin 27.7 pg (27.0-33.0); Mean Corpuscular Volume 89.3 fL (80-98); Monocytes Absolute Auto 0.7 X10*3/uL (0.1-1.2); Monocytes Percent Auto 9.8 % (2-11); Neutrophils Absolute Auto 4.8 X10*3/uL (2.0-8.3); Neutrophils Percent Auto 64.9 % (45-73); Red Blood Count 3.28 X10*6/uL (4.60-5.80); Red Cell Distribution Width 13.6 % (11.0-16.0); White Blood Count 7.4 X10*3/uL (4.8-10.8)
[2021-02-05] MEDS: 0.9 % Sodium Chloride Flush 3 ML SYRINGE IVFLUSH ×2 (07:41→15:28)
[2021-02-05 08:06] LABS: Mean Platelet Volume 10.7 fL (9.4-12.4); Platelet Count 192 X10*3/uL (160-400)
[2021-02-05 08:07] LABS: SLIDE REVIEW VERIFIED
[2021-02-05 08:12] LABS: Anion Gap 13 (12-20); Blood Urea Nitrogen 47 mg/dL (9-16); Calcium 8.9 mg/dL (8.4-10.2); Carbon Dioxide 20 mmol/L (22-29); Chloride 113 mmol/L (96-108); Creatinine Clr Calc Pharmacy 30.9; Estimated Glomerular Filt Rate 25; Potassium 5.1 mmol/L (3.3-5.1); Sodium 141 mmol/L (135-145)
[2021-02-05 08:14] LABS: Glucose Random 56 mg/dL (60-115)
[2021-02-05 08:23] LABS: Glucose, Whole Blood 81 mg/dL (60-115)
--- NOTE | 2021-02-05 08:30 | CA_ITS ---
Transthoracic Echocardiogram Patient (Last, First, Middle): Andi Justin, Gender: Male Date of : 1950 Age: 70 Procedure Date: 02/05/2021 Procedure Type: Transthoracic [place] [facility] [place]: 172.72 cm Weight: 99.79 kg BSA: 2.13 m2 Heart Rate: bpm BP: 141 / 67 mmHg Vendor Quality Supervisor: Referring MD: Moreno Vega MD Nylon Machine Operator: Yfn Haro MD Symptoms: high trops Study Quality: Fair ECG Rhythm: Sinus Conclusions: - 1. Normal LV systolic function with moderate LVH with impaired relaxation filling pattern and increased filling pressures 2. Mildly dilated left atrium 3. Moderate mitral and calcification with normal cardiac valvular Dopplers 4. No gross pericardial effusion Findings Procedure Information Contrast agent, definity, is being given per protocol without apparent complications. Left Ventricle Normal left ventricular size and systolic function. There is moderately increased left ventricular wall thickness. The visually estimated ejection fraction is between 60-65%. Spectral Doppler is indicative of an impaired relaxation filling pattern. Elevated filling pressures. Right Ventricle Normal right ventricular cavity size and systolic function. Atria The left atrium is mildly dilated. Interatrial shunt cannot be excluded. The right atrium is normal in size. Aortic Valve The aortic valve was not well visualized. There is mild calcification of the aortic valve. There is no aortic valve stenosis. There is no aortic valve regurgitation. Mitral Valve There is mild anterior and moderate posterior mitral leaflet thickening. There is moderate mitral annular calcification. There is trace mitral valve regurgitation. There is no mitral valve stenosis. Pulmonic Valve The pulmonic valve was not well visualized. Tricuspid Valve The tricuspid valve was not well visualized. Tricuspid regurgitation envelope is inadequate for calculation of right ventricular systolic pressure. Great Vessels All visible segments of the aorta are normal in size. The pulmonary artery was not well visualized. Venous The inferior vena cava is normal in size and collapses greater than 50% with inspiration. Pericardium/Pleural There is no evidence of pericardial effusion. Prior Study Comparison No significant change compared to prior study dated: 03/14/2019. Measurements 2D Linear Measurements IVSd: 1.56 0.6-0.9/0.6-1.0 cm LVIDd: 4.51 3.9-5.3/4.2-5.9 cm LVIDd Index: 2.12 2.4-3.2/2.2-3.1 cm/m2 LVIDs: 3.04 2.0-3.6 cm LVPWd: 1.53 0.7-1.1 cm Ao Root: 3.70 2.1-3.5 cm LA Diam: 5.10 2.7-3.8/3.0-4.0 cm LAIDs Index: 2.39 1.5-2.3 cm/m2 LV Mass: 361.13 67-162/88-224 g LV Mass Index: 169.55 43-95/49-115 g/m2 LVOT Diam: 2.10 3.0+(-)1.3 cm Mitral Valve MV Pk E: 1.01 MV PK A: 1.59 MV Decel Time: 391.00 E/A: 0.60 E'Lateral: 7.18 E'Medial: 5.00 E/E' Med: 20.20 E/E' Lat: 14.10 PHT: 114.00 MVA PHT: 1.93 Decel Cidra: 2.58 Aortic Valve AoV Pk Roger: 1.52 AoV Mn Roger: 1.09 AoV VTI: 0.39 AoV Pk Grad: 9.00 Aov Mn Grad: 5.00 STIVEN Cont.VTI: 2.69 LVOT LVOT Pk Roger: 1.17 LVOT Mn Roger: 0.87 LVOT VTI: 0.30 LVOT Pk Grad: 5.00 LVOT Mn Grad: 3.00 LVOT Diam: 2.10 LVOT Area: 3.46 Diastolic Function MV Pk E: 1.01 MV Pk A: 1.59 E/A: 0.60 E'Medial: 5.00 E/E' Med: 20.20 E' Laterial: 7.18 E/E' Lat: 14.10 Great Vessels Aorta Ao Root-2D: 3.70 2.0-3.7 cm Ao Asc: 3.50 2.1-3.4 cm Updated in Other Vendor System with Status of Final Yfn Haro MD electronically signed on 02/05/2021 2:35:52 PM with status of Final
[2021-02-05] MEDS: Ferrous Sulfate 324 MG TABLET.DR PO ×2 (08:37→21:43)
[2021-02-05] MEDS: Pioglitazone HCL 30 MG TABLET PO (08:37)
--- NOTE | 2021-02-05 10:09 | PM.CNCAR ---
History of Present Illness History of Present Illness Date of Service: 02/05/21 Requesting physician: Nimco Rodriguez Consult reason: troponin elevation Chief complaint: PNA Narrative: I was requested to see Andi in cardiology consultation today for abnormal troponin. He is a pleasant 70-year-old male with prior history of hypertension, diabetes, lung cancer, COPD present to the hospital with chronic cough and then bilateral severe discomfort in his lower extremity. He was diagnosed with pneumonia and is being treated for the same and says after receiving IV antibiotics his bilateral leg discomfort has improved. Troponins were done and they were minimally elevated but flat. He has had no cardiac symptoms and no symptoms suggestive of myocardial ischemia. He has no prior cardiac history and says about 8 or 9 years ago at undergone cardiac catheterization in [place] and was told that he had no significant coronary artery disease. Since then he has never been diagnosed with any coronary artery disease and does not have exertional symptoms related to the same. Cardiology consult was called because of the abnormal troponin. EKG shows Normal sinus rhythm with no acute ST T wave changes Review of Systems Constitutional: Constitutional: Denies body ache(s), Denies chills, Denies fever(s) and Denies poor appetite Eyes: Eyes: Reports no additional eye complaints Cardiovascular: Cardiovascular: Reports no additional cardiovascular complaints and Reports dyspnea on exertion Respiratory: Respiratory: Reports cough and Reports dyspnea on exertion Gastrointestinal: Gastrointestinal: Reports no additional gastrointestinal complaints Genitourinary: Genitourinary: Reports no additional male genitourinary complaints Musculoskeletal: Musculoskeletal: Reports no additional musculoskeletal complaints Integumentary/Breasts: Skin/Breast: Reports system reviewed and no additional complaints, except as docu Neurologic: Reports system reviewed and no additional complaints, except as documented Psychiatric: Psychiatric: Reports no additional psychiatric complaints Endocrine: Endocrine: Reports no additional endocrine complaints Hematologic/Lymphatic: Hematologic/Lymphatic: Reports no additional hematologic/lymphatic complaints Allergic/Immunologic: Allergic/Immunologic: Reports no additional allergic/immunologic complaints [facility] Past Medical History Medical History Adenocarcinoma of lung, stage 3 Arthritis CKD (chronic kidney disease) COPD (chronic obstructive pulmonary disease) COPD (chronic obstructive pulmonary disease) Cough Diabetes Dyspnea on exertion HTN (hypertension) Lung nodule Personal history of nicotine dependence Restrictive lung disease Family History Family History Father No problems noted. Mother Diabetes mellitus Surgical History Surgical History H/O pneumonectomy History of arthroplasty of left knee History of right cataract extraction Social History Social History Household Members: Spouse and None Housing: House Are you a primary care information associate to a significant other at home: No Do you presently have visiting nurse or other home services: No Alcohol intake: never Patient Tobacco Use Status: Former Tobacco user Quit Date: 11/30/19 Tobacco use type: Cigarette Years Smoked: 55 Second Hand Smoke Exposure: No Use of substances other than those prescribed or required for medical reasons: No Advance Directives: Yes Advance Directives on File: Yes Advance Directives Date on File: 02/04/21 service: No Current occupational status: retired [employer] Allergies Allergy/AdvReac Type Severity Reaction Status Date / Time No Known Allergies Allergy Verified 01/19/21 14:39 [No Known Allergies*] Active Medications: Current Medications Acetaminophen (Acetaminophen 325 Mg Tablet) 650 mg PO Q6H PRN PRN Reason: Pain, Mild (Pain Scale 1-3) Albuterol/Ipratropium (Albuterol/Iprat 2.5/0.5mg 3 Ml Ampul.Neb) 3 ml INHALE QID PRN PRN Reason: wheezing/SOB. Albuterol/Ipratropium (Albuterol/Iprat 2.5/0.5mg 3 Ml Ampul.Neb) 3 ml INHALE RQ4H PRN PRN Reason: Shortness of Breath/Wheezing Atorvastatin Calcium (Atorvastatin Calcium 10 Mg Tablet) 10 mg PO BEDTIME ROB Last Admin: 02/04/21 22:19 Dose: 10 mg Documented by: Azithromycin (Azithromycin 500 Mg Tablet) 500 mg PO Q24H ROB Dextrose (Dextrose 50 % 25 Gm/50 Ml Vial) 25 gm IVPUSH Q15M PRN; Protocol PRN Reason: per Hypoglycemia Standing Ord. Enoxaparin Sodium (Enoxaparin Sodium 30 Mg/0.3 Ml Syringe) 30 mg SUBCUT Q24H ROB Last Admin: 02/04/21 22:21 Dose: 30 mg Documented by: Ferrous Sulfate (Ferrous Sulfate 324 Mg Tablet.) 324 mg PO BID ROB Last Admin: 02/05/21 08:37 Dose: 324 mg Documented by: Gabapentin (Gabapentin 300 Mg Capsule) 300 mg PO BEDTIME [facility] Last Admin: 02/04/21 22:19 Dose: 300 mg Documented by: Glucose (Glucose Gel 15 Gm Gel..Gram.) 15 gm PO Q15M PRN; Protocol PRN Reason: per Hypoglycemia Standing Ord. Sodium Chloride (Ns) 1,000 mls @ 50 mls/hr IVCONT .Q20H [facility] Last Admin: 02/04/21 22:25 Dose: 50 mls/hr Documented by: Ceftriaxone Sodium 1 gm/ (Sodium Chloride) 50 mls @ 100 mls/hr IV Q24H [facility] Melatonin (Melatonin 3 Mg Tablet) 6 mg PO BEDTIME PRN PRN Reason: Insomnia Last Admin: 02/04/21 23:03 Dose: 6 mg Documented by: Pharmacy Consult (Consult Rx Perform Med Rec) 1 each MISCELLANE ONCE PRN PRN Reason: Consult order Pioglitazone HCl (Pioglitazone Hcl 30 Mg Tablet) 30 mg PO DAILY [facility] Last Admin: 02/05/21 08:37 Dose: 30 mg Documented by: Senna (Sennosides 8.6 Mg Tablet) 17.2 mg PO BEDTIME PRN PRN Reason: Constipation Sodium Chloride (0.9 % Sodium Chloride Flush 3 Ml Syringe) 3 ml IVFLUSH QSHIFT [facility] Last Admin: 02/05/21 07:41 Dose: 3 ml Documented by: Home Medications Medication Instructions Recorded Confirmed Last Taken Type ergocalciferol (vitamin D2) 1,250 1,250 mcg PO Q2W 01/19/21 02/04/21 Unknown History mcg (50,000 unit) capsule ferrous sulfate 325 mg (65 mg 325 mg PO BID 01/19/21 02/04/21 02/03/21 History iron) tablet gabapentin 300 mg capsule 300 mg PO BEDTIME 02/04/21 02/04/21 02/03/21 History ipratropium 0.5 mg-albuterol 3 mg 3 ml INHALATION TID-QID PRN 02/04/21 02/04/21 02/03/21 History (2.5 mg base)/3 mL nebulization soln Physical Exam Vital Signs: Vital Signs: Last Vital Signs Temp 98.4 F 02/04/21 13:28 Pulse 82 02/05/21 07:41 Resp 18 10/15/21 07:41 BP 134/54 L 02/05/21 07:41 Pulse Ox 98 02/05/21 07:41 Body Mass Index 33.5 Const: General: cooperative, comfortable, alert and awake Nutritional Appearance: obese Orientation/consciousness: patient oriented x3 Limitations: no limitations HENMT: Head: Yes normocephalic Neck: Neck: Yes trachea midline, Yes supple and Yes no JVD Resp: Effort & Inspection: normal respiratory effort Auscultation: crackles bilateral and breath sounds absent on th left (Base) Cardio: Jugular venous distension: no JVD Palpation: normal PMI Rate: regular rate Rhythm: regular rhythm Heart sounds: S1 normal heart sound present, S2 normal heart sound present, no click, no gallops, no murmurs and no rubs GI: Inspection: Yes obesity Auscultation: normal bowel sounds Skin: General skin exam: no rashes or lesions noted Neuro: General: patient oriented x3 and no focal motor deficits Extrem: General: Yes no clubbing, cyanosis or edema Results Labs and Meds Result diagrams: 02/05/21 07:15 02/05/21 07:15 Lab results: Laboratory Results - last 24 hr 02/04/21 02/04/21 02/04/21 09:38 09:38 09:38 WBC RBC Hgb Hct MCV MCH MCHC RDW Plt Count MPV Immature Gran % (Auto) Neut % (Auto) Lymph % (Auto) [place] % (Auto) Eos % (Auto) Baso % (Auto) Lymph # (Auto) [place] # (Auto) Eos # (Auto) Baso # (Auto) Abs Immat Gran (auto) Absolute Neuts (auto) Absolute Nucleated RBC Nucleated RBC % (auto) Smear Tech's Comments ESR Sodium Potassium Chloride Carbon Dioxide Anion Gap BUN Creatinine Estim Creat Clear Calc Estimated GFR POC Glucose Random Glucose Lactic Acid Uric Acid 6.4 Calcium Troponin I High Sens 136.9 H* C-Reactive Protein 4.61 H B-Natriuretic Peptide 340 H Urine Color Urine Appearance Urine pH Ur Specific [place] Urine Protein Urine Glucose (UA) Urine Ketones Urine Blood Urine Nitrite Ur Leukocyte Esterase Urine RBC Urine WBC Ur Squamous Epith Cells Amorphous Sediment Urine Bacteria 02/04/21 02/04/21 02/04/21 11:40 13:03 14:07 WBC RBC Hgb Hct MCV MCH MCHC RDW Plt Count MPV Immature Gran % (Auto) Neut % (Auto) Lymph % (Auto) [place] % (Auto) Eos % (Auto) Baso % (Auto) Lymph # (Auto) [place] # (Auto) Eos # (Auto) Baso # (Auto) Abs Immat Gran (auto) Absolute Neuts (auto) Absolute Nucleated RBC Nucleated RBC % (auto) Smear Tech's Comments ESR 92 H Sodium Potassium Chloride Carbon Dioxide Anion Gap BUN Creatinine Estim Creat Clear Calc Estimated GFR POC Glucose Random Glucose Lactic Acid Uric Acid Calcium Troponin I High Sens 115.9 H* C-Reactive Protein B-Natriuretic Peptide Urine Color YELLOW Urine Appearance CLEAR Urine pH 6.0 Ur Specific [place] 1.020 Urine Protein 2+ H Urine Glucose (UA) 100 H Urine Ketones NEG Urine Blood TRACE Urine Nitrite NEG Ur Leukocyte Esterase NEG Urine RBC 0-2 Urine WBC 0 Ur Squamous Epith Cells TRACE Amorphous Sediment 1+ Urine Bacteria NONE 02/04/21 02/04/21 02/05/21 18:07 20:51 07:15 WBC 7.4 RBC 3.28 L Hgb 9.1 L Hct 29.3 L MCV 89.3 MCH 27.7 MCHC 31.1 RDW 13.6 Plt Count 192 D MPV 10.7 Immature Gran % (Auto) 0.4 Neut % (Auto) 64.9 Lymph % (Auto) 19.2 L [place] % (Auto) 9.8 Eos % (Auto) 5.2 H Baso % (Auto) 0.5 Lymph # (Auto) 1.4 [place] # (Auto) 0.7 Eos # (Auto) 0.4 Baso # (Auto) 0.0 Abs Immat Gran (auto) 0.03 Absolute Neuts (auto) 4.8 Absolute Nucleated RBC 0.000 Nucleated RBC % (auto) 0.0 Smear Tech's Comments VERIFIED ESR Sodium Potassium Chloride Carbon Dioxide Anion Gap BUN Creatinine Estim Creat Clear Calc Estimated GFR POC Glucose 273 H Random Glucose Lactic Acid 1.0 Uric Acid Calcium Troponin I High Sens C-Reactive Protein B-Natriuretic Peptide Urine Color Urine Appearance Urine pH Ur Specific [place] Urine Protein Urine Glucose (UA) Urine Ketones Urine Blood Urine Nitrite Ur Leukocyte Esterase Urine RBC Urine WBC Ur Squamous Epith Cells Amorphous Sediment Urine Bacteria 02/05/21 02/05/21 07:15 08:20 WBC RBC Hgb Hct MCV MCH MCHC RDW Plt Count MPV Immature Gran % (Auto) Neut % (Auto) Lymph % (Auto) [place] % (Auto) Eos % (Auto) Baso % (Auto) Lymph # (Auto) [place] # (Auto) Eos # (Auto) Baso # (Auto) Abs Immat Gran (auto) Absolute Neuts (auto) Absolute Nucleated RBC Nucleated RBC % (auto) Smear Tech's Comments ESR Sodium 141 Potassium 5.1 Chloride 113 H Carbon Dioxide 20 L Anion Gap 13 BUN 47 H Creatinine 2.51 H Estim Creat Clear Calc 30.9 Estimated GFR 25 POC Glucose 81 Random Glucose 56 L* Lactic Acid Uric Acid Calcium 8.9 Troponin I High Sens C-Reactive Protein B-Natriuretic Peptide Urine Color Urine Appearance Urine pH Ur Specific [place] Urine Protein Urine Glucose (UA) Urine Ketones Urine Blood Urine Nitrite Ur Leukocyte Esterase Urine RBC Urine WBC Ur Squamous Epith Cells Amorphous Sediment Urine Bacteria Imaging Radiologist's impression: Impressions Chest X-Ray 02/04/21 10:36 IMPRESSION: Postsurgical changes to the left hemithorax. Question left sided infiltrate. Some of these changes may be chronic compared with prior exams. Brain MRI 02/04/21 11:08 IMPRESSION: No acute intracranial abnormality. Redemonstration of small chronic lacunar infarcts within the right midbrain and left cerebellum. Redemonstration of nonspecific low signal within the marrow. Chest CT 02/04/21 12:04 IMPRESSION: Emphysema and question mild peripheral interstitial lung disease. New areas of increased interstitial markings and patchy areas of airspace disease or consolidation seen in the peripheral left upper lobe and superior segment of the left lower lobe. Infection/pneumonia and changes related to interstitial lung disease should be considered . Stable postsurgical changes and scarring or atelectasis left lower lobe. Ankle X-Ray 02/04/21 13:40 IMPRESSION: Calcaneal spurs. Venous Duplex 02/04/21 21:39 IMPRESSION: No DVT demonstrated in the bilateral lower extremities. Assessment and Plan (1) Elevated troponin: Status: Acute Elevated troponin this elderly gentleman without any clear rise and fall. This is not suggestive of myocardial infarction. Most likely elevated troponin secondary to myocardial stress related to systemic infection/pneumonia. Does not require any anticoagulation. May consider an echocardiogram. Continue treat underlying medical condition and pneumonia aggressively. There is no need for ischemic workup at this point time. Will sign of the case. Thank you for allowing me to partake in his care Procedures Date of Service Date of Service: 02/05/21
[2021-02-05 14:16] LABS: Glucose, Whole Blood 95 mg/dL (60-115)
[2021-02-05] MEDS: 0.9 % Sodium Chloride 1,000 ML 50 ML IVCONT (15:25)
--- NOTE | 2021-02-05 15:46 | HO.PM.IMPN ---
Subjective Subjective Date of Service: 02/05/21 Interval History: seen and examined this morning admitted overnight for leg pain, pneumonia leg/foot pain has completely resolved at this time he reports chronic sob and chronic cough which does't seem to be changed at this time Review of Systems Review of Systems: Yes all other systems are reviewed and are negative Constitutional Constitutional: Denies chills and Denies fever(s) Cardiovascular Cardiovascular: Denies chest pain Respiratory Respiratory: Reports cough Gastrointestinal Gastrointestinal: Denies abdominal pain Physical Exam Vital Signs: Vital Signs: Last Vital Signs Temp 97.1 F 02/05/21 14:29 Pulse 82 02/05/21 14:29 Resp 18 02/05/21 14:29 BP 150/69 H 02/05/21 14:29 Pulse Ox 98 02/05/21 14:29 Body Mass Index 33.5 Const: Nutritional Appearance: well nourished Orientation/consciousness: patient oriented x3 HENMT: Head: Yes normocephalic and Yes atraumatic Eyes: Sclerae: sclerae normal Chest: Chest palpation & inspection: normal inspection of the chest Resp: Other: left lower lobe dry crackles; no wheezing Effort & Inspection: normal respiratory effort and no respiratory distress Cardio: Rate: regular rate Rhythm: regular rhythm GI: Palpation (GI): Soft to palpation and nontender Neuro: General: patient oriented x3 Cranial nerves: Yes CN's II-XII intact bilaterally and Yes Bilaterally intact EOM present Extrem: Other: no leg edema Objective Data Active Medications Acetaminophen (Acetaminophen 325 Mg Tablet) 650 mg PO Q6H PRN PRN Reason: Pain, Mild (Pain Scale 1-3) Albuterol/Ipratropium (Albuterol/Iprat 2.5/0.5mg 3 Ml Ampul.Neb) 3 ml INHALE QID PRN PRN Reason: wheezing/SOB. Albuterol/Ipratropium (Albuterol/Iprat 2.5/0.5mg 3 Ml Ampul.Neb) 3 ml INHALE RQ4H PRN PRN Reason: Shortness of Breath/Wheezing Atorvastatin Calcium (Atorvastatin Calcium 10 Mg Tablet) 10 mg PO BEDTIME ROB Last Admin: 02/04/21 22:19 Dose: 10 mg Documented by: KAYLEEN Azithromycin (Azithromycin 500 Mg Tablet) 500 mg PO Q24H [facility] Dextrose (Dextrose 50 % 25 Gm/50 Ml Vial) 25 gm IVPUSH Q15M PRN; Protocol PRN Reason: per Hypoglycemia Standing Ord. Enoxaparin Sodium (Enoxaparin Sodium 30 Mg/0.3 Ml Syringe) 30 mg SUBCUT Q24H [facility] Last Admin: 02/04/21 22:21 Dose: 30 mg Documented by: KAYLEEN Ferrous Sulfate (Ferrous Sulfate 324 Mg Tablet.Dr) 324 mg PO BID [facility] Last Admin: 02/05/21 08:37 Dose: 324 mg Documented by: REED Gabapentin (Gabapentin 300 Mg Capsule) 300 mg PO BEDTIME [facility] Last Admin: 02/04/21 22:19 Dose: 300 mg Documented by: KAYLEEN Glucose (Glucose Gel 15 Gm Gel..Gram.) 15 gm PO Q15M PRN; Protocol PRN Reason: per Hypoglycemia Standing Ord. Sodium Chloride (Ns) 1,000 mls @ 50 mls/hr IVCONT .Q20H [facility] Last Admin: 02/05/21 15:25 Dose: 50 mls/hr Documented by: LIANET Ceftriaxone Sodium 1 gm/ (Sodium Chloride) 50 mls @ 100 mls/hr IV Q24H [facility] Melatonin (Melatonin 3 Mg Tablet) 6 mg PO BEDTIME PRN PRN Reason: Insomnia Last Admin: 02/04/21 23:03 Dose: 6 mg Documented by: KAYLEEN Pharmacy Consult (Consult Rx Perform Med Rec) 1 each MISCELLANE ONCE PRN PRN Reason: Consult order Pioglitazone HCl (Pioglitazone Hcl 30 Mg Tablet) 30 mg PO DAILY [facility] Last Admin: 02/05/21 08:37 Dose: 30 mg Documented by: REED Senna (Sennosides 8.6 Mg Tablet) 17.2 mg PO BEDTIME PRN PRN Reason: Constipation Sodium Chloride (0.9 % Sodium Chloride Flush 3 Ml Syringe) 3 ml IVFLUSH QSHIFT [facility] Last Admin: 02/05/21 15:28 Dose: 3 ml Documented by: LIANET Labs CBC & Chem 7: 02/05/21 07:15 02/05/21 07:15 Labs: Laboratory Results - last 24 hr 02/04/21 02/04/21 02/05/21 18:07 20:51 07:15 MCV 89.3 MCH 27.7 MCHC 31.1 RDW 13.6 Plt Count 192 D MPV 10.7 Immature Gran % (Auto) 0.4 Neut % (Auto) 64.9 Lymph % (Auto) 19.2 L [place] % (Auto) 9.8 Eos % (Auto) 5.2 H Baso % (Auto) 0.5 Lymph # (Auto) 1.4 [place] # (Auto) 0.7 Eos # (Auto) 0.4 Baso # (Auto) 0.0 Abs Immat Gran (auto) 0.03 Absolute Neuts (auto) 4.8 Absolute Nucleated RBC 0.000 Nucleated RBC % (auto) 0.0 Smear Tech's Comments VERIFIED Anion Gap Estim Creat Clear Calc Estimated GFR POC Glucose 273 H Random Glucose Lactic Acid 1.0 Calcium 02/05/21 02/05/21 02/05/21 07:15 08:20 14:10 MCV MCH MCHC RDW Plt Count MPV Immature Gran % (Auto) Neut % (Auto) Lymph % (Auto) [place] % (Auto) Eos % (Auto) Baso % (Auto) Lymph # (Auto) [place] # (Auto) Eos # (Auto) Baso # (Auto) Abs Immat Gran (auto) Absolute Neuts (auto) Absolute Nucleated RBC Nucleated RBC % (auto) Smear Tech's Comments Anion Gap 13 Estim Creat Clear Calc 30.9 Estimated GFR 25 POC Glucose 81 95 Random Glucose 56 L* Lactic Acid Calcium 8.9 Assessment and Plan (1) Elevated troponin: Status: Acute (2) Pneumonia: Status: Acute Assessment and Plan: 70-year-old male with a past medical history of hypertension, hyperlipidemia, diabetes, COPD, history of tobacco dependence, pulmonary nodule, osteoarthritis, history of lung cancer was on chemo and radiotherapy, history of anemia requiring blood transfusion presented to the hospital with a chief complaint of generalized weakness/bilateral lower extremity pains. bilateral lower extremity pain. completely resolved at this time. b/l venous duplex negative MRI lumbar spine showing multilevel spondylosis of the lumbar spine seen by PT rec home with PT and front wheeled walker Left upper lobe pneumonia: on a background of lung AC s/p chemo/radiation and radiation pneumonitis Continue ceftriaxone, azithromycin. Blood cultures pending Mild JULES on CKD4: Improving. lisinopril on hold follow BMP Indeterminate troponins: Likely reduced clearance from renal insufficiency vs demand from PNA. No chest pain, no ekg changes. trops flat ECHO unremarkable seen by cardiology no further workup required Diabetes: random chemistry with sugar of 56, pt asymptomatic will hold glipiziide, actos SSI COPD: No acute exacerbation DuoNeglen p.r.n HLD continue statin DVT prophylaxis: Lovenox Code status: Full code Quality Stroke Does the patient have a stroke diagnosis?: No VTE Prior VTE?: No VTE Risk Level:: Medical - moderate - high VTE Device Contraindication: Treatment Not Indicated VTE Drug Contraindication: N/A - Med Ordered
--- NOTE | 2021-02-05 16:10 | MHC.CLN ---
NUTRITION RECOMMEND CHANGE DIET TO DIABETIC 2000 KCAL, CARDIAC.
[2021-02-05 17:06] LABS: Glucose, Whole Blood 230 mg/dL (60-115)
[2021-02-05] MEDS: Azithromycin 500 MG TABLET PO (19:59)
[2021-02-05] MEDS: cefTRIAXone sodium 1 GM in 0.9 % Sodium Chloride 50 ML IV (19:59)
[2021-02-05] MEDS: Enoxaparin Sodium 30 MG/0.3 ML SYRINGE SUBCUT (20:00)
[2021-02-05 21:42] LABS: Glucose, Whole Blood 102 mg/dL (60-115)
[2021-02-05] MEDS: Gabapentin 300 MG CAPSULE PO (21:43)
[2021-02-05] MEDS: Atorvastatin Calcium 10 MG TABLET PO (21:43)
--- NOTE | 2021-02-05 22:10 | P.CNID_ITS ---
History of Present Illness Data of Consult Service Date: 02/05/21 Requesting physician: Nimco Rodriguez Primary Care Provider: Harish Powers [facility] HPI Reason for consult: lung disease He presents to hospital with shortness of breath. He has leg weakness. He has received radiation twice. He had resection of stage 3 cancer. Review of Systems Review of Systems: Yes all other systems are reviewed and are negative [facility] Past Medical History Medical History Adenocarcinoma of lung, stage 3 Arthritis CKD (chronic kidney disease) COPD (chronic obstructive pulmonary disease) COPD (chronic obstructive pulmonary disease) Cough Diabetes Dyspnea on exertion HTN (hypertension) Lung nodule Personal history of nicotine dependence Restrictive lung disease Family History Family History Father No problems noted. Mother Diabetes mellitus Family history: reviewed and not pertinent Surgical History Surgical History H/O pneumonectomy History of arthroplasty of left knee History of right cataract extraction Social History Social History Household Members: None Housing: House Are you a primary health care consultant to a significant other at home: No Alcohol intake: never Patient Tobacco Use Status: Former Tobacco user Quit Date: 11/30/19 Tobacco use type: Cigarette Years Smoked: 55 Second Hand Smoke Exposure: No Advance Directives Date on File: 02/04/21 service: No Current occupational status: retired Meds Allergies Allergy/AdvReac Type Severity Reaction Status Date / Time No Known Allergies Allergy Verified 01/19/21 14:39 [No Known Allergies*] Active Medications: Current Medications Acetaminophen (Acetaminophen 325 Mg Tablet) 650 mg PO Q6H PRN PRN Reason: Pain, Mild (Pain Scale 1-3) Albuterol Sulfate (Albuterol Sulfate (0.083%) 2.5 Mg/3 Ml Vial.Neb) 2.5 mg INHALE RQ4H PRN PRN Reason: Shortness of Breath Albuterol/Ipratropium (Albuterol/Iprat 2.5/0.5mg 3 Ml Ampul.Neb) 3 ml INHALE QID PRN PRN Reason: wheezing/SOB. Atorvastatin Calcium (Atorvastatin Calcium 10 Mg Tablet) 10 mg PO BEDTIME [facility] Last Admin: 02/05/21 21:43 Dose: 10 mg Documented by: Azithromycin (Azithromycin 500 Mg Tablet) 500 mg PO Q24H [facility] Last Admin: 02/05/21 19:59 Dose: 500 mg Documented by: Dextrose (Dextrose 50 % 25 Gm/50 Ml Vial) 25 gm IVPUSH Q15M PRN; Protocol PRN Reason: per Hypoglycemia Standing Ord. Enoxaparin Sodium (Enoxaparin Sodium 30 Mg/0.3 Ml Syringe) 30 mg SUBCUT Q24H [facility] Last Admin: 02/05/21 20:00 Dose: 30 mg Documented by: Ferrous Sulfate (Ferrous Sulfate 324 Mg Tablet.Dr) 324 mg PO BID [facility] Last Admin: 02/05/21 21:43 Dose: 324 mg Documented by: Gabapentin (Gabapentin 300 Mg Capsule) 300 mg PO BEDTIME [facility] Last Admin: 02/05/21 21:43 Dose: 300 mg Documented by: Glucose (Glucose Gel 15 Gm Gel..Gram.) 15 gm PO Q15M PRN; Protocol PRN Reason: per Hypoglycemia Standing Ord. Sodium Chloride (Ns) 1,000 mls @ 50 mls/hr IVCONT .Q20H [facility] Last Admin: 02/05/21 15:25 Dose: 50 mls/hr Documented by: Ceftriaxone Sodium 1 gm/ (Sodium Chloride) 50 mls @ 100 mls/hr IV Q24H [facility] Last Infusion: 02/05/21 20:31 Dose: Infused Documented by: Insulin Human Lispro (Insulin Lispro 100 Unit/Ml 3 Ml Vial) 0 unit SUBCUT QIDACHS [facility]; Protocol Last Admin: 02/05/21 21:49 Dose: Not Given Documented by: Melatonin (Melatonin 3 Mg Tablet) 6 mg PO BEDTIME PRN PRN Reason: Insomnia Last Admin: 02/04/21 23:03 Dose: 6 mg Documented by: Pharmacy Consult (Consult Rx Perform Med Rec) 1 each MISCELLANE ONCE PRN PRN Reason: Consult order Senna (Sennosides 8.6 Mg Tablet) 17.2 mg PO BEDTIME PRN PRN Reason: Constipation Sodium Chloride (0.9 % Sodium Chloride Flush 3 Ml Syringe) 3 ml IVFLUSH QSHIFT [facility] Last Admin: 02/05/21 15:28 Dose: 3 ml Documented by: Home Medications Medication Instructions Recorded Confirmed Last Taken Type ergocalciferol (vitamin D2) 1,250 1,250 mcg PO Q2W 01/19/21 02/04/21 Unknown History mcg (50,000 unit) capsule ferrous sulfate 325 mg (65 mg 325 mg PO BID 01/19/21 02/04/21 02/03/21 History iron) tablet gabapentin 300 mg capsule 300 mg PO BEDTIME 02/04/21 02/04/21 02/03/21 History ipratropium 0.5 mg-albuterol 3 mg 3 ml INHALATION TID-QID PRN 02/04/21 02/04/21 02/03/21 History (2.5 mg base)/3 mL nebulization soln Physical Exam Vital Signs: Vital Signs: Last Vital Signs Temp 97.3 F 02/05/21 19:33 Pulse 76 02/05/21 19:33 Resp 18 02/05/21 19:33 BP 131/69 02/05/21 19:33 Pulse Ox 97 02/05/21 19:33 Body Mass Index 33.5 Const: General: cooperative HENMT: Head: Yes normal to inspection Mouth: Normal oral and palatal mucosa present Eyes: General: appearance normal, both eyes and all related structures Resp: Effort & Inspection: normal respiratory effort (rhonchi left base) Cardio: Rate: regular rate Rhythm: regular rhythm GI: Palpation (GI): Soft to palpation and nontender Results Labs CBC & Chem 7: 02/05/21 07:15 02/05/21 07:15 Labs: Short CBC 02/05/21 Range/Units 07:15 WBC 7.4 (4.8-10.8) X10*3/uL Hgb 9.1 L (14.0-18.0) g/dl Hct 29.3 L (42-52) % Plt Count 192 D (160-400) X10*3/uL BMP 02/05/21 07:15 Sodium 141 Potassium 5.1 Chloride 113 H Carbon Dioxide 20 L BUN 47 H Creatinine 2.51 H Calcium 8.9 Microbiology Microbiology Results: Microbiology 02/04/21 18:07 Blood - Venous Blood Culture - Preliminary No growth after 24 hours. 02/04/21 18:21 Blood - Venous Blood Culture - Preliminary No growth after 24 hours. Assessment and Plan (1) Pneumonia: Qualifiers: Laterality: left Lung location: upper lobe of lung Pneumonia type: due to unspecified organism Qualified Code(s): J18.9 - Pneumonia, unspecified org anism Status: Acute He has likely some bacterial component gram negatives,gram positive There is radiation damage likely Would continue Ceftriaxone and Zmax and Ceftin and Zmax 7 days
[2021-02-05] MEDS: Melatonin 3 MG TABLET 6 MG PO (23:01)
[2021-02-06] VITALS: BP 142/78; PULSE 78; RESP 18; TEMP 36.3; O2SAT 98
[2021-02-06 03:58] VITALS: BP 115/57; PULSE 68; RESP 18; TEMP 36.3; O2SAT 98
[2021-02-06 05:09] LABS: Anion Gap 12 (12-20); Blood Urea Nitrogen 51 mg/dL (9-16); Calcium 8.9 mg/dL (8.4-10.2); Carbon Dioxide 22 mmol/L (22-29); Chloride 110 mmol/L (96-108); Creatinine Clr Calc Pharmacy 31.4; Estimated Glomerular Filt Rate 26; Glucose Random 65 mg/dL (60-115); Sodium 139 mmol/L (135-145)
[2021-02-06 07:35] VITALS: BP 133/62; PULSE 86; RESP 18; TEMP 36.4; O2SAT 98
--- NOTE | 2021-02-06 08:02 | PM.DS ---
DS: Providers Provider Date of Service: 02/06/21 <Tejal Rodriguez NP - Last Filed: 02/06/21 16:54> Date of admission: 02/04/21 19:51 <Tejal Rodriguez NP - Last Filed: 02/06/21 16:54> Primary care physician: KT Bradley <Tejal Rodriguez NP - Last Filed: 02/06/21 16:54> Consults: 02/04/21 20:04 Consult to Cardiology Routine Consulting Provider: Yfn Haro Reason for consultation: high trops <Tejal Rodriguez NP - Last Filed: 02/06/21 16:54> Attending physician on discharge: Leo Herrmann <Tejal Rodriguez NP - Last Filed: 02/06/21 16:54> Discharging clinician: Tejal Rodriguez <Tejal Rodriguez NP - Last Filed: 02/06/21 16:54> DS: Diagnosis Discharge Diagnosis (1) Pneumonia: Status: Resolved <Tejal Rodriguez NP - Last Filed: 02/06/21 16:54> DS: Summary Hospital Course Hospital Course: HP as per admitting provider 70-year-old male with a past medical history of hypertension, hyperlipidemia, diabetes, COPD, history of tobacco dependence, pulmonary nodule, osteoarthritis, history of lung cancer was on chemo and radiotherapy, history of anemia requiring blood transfusion presented to the hospital with a chief complaint of generalized weakness/bilateral lower extremity pains. Patient reported that over the past few days has been not feeling well complains of pain in both his knees and feet and had difficulty walking; Denies any numbness tingling or focal weakness. Patient denied any chest pain palpitations lightheadedness or dizziness. Denies any shortness of breath. Denies any fever chills. Denies any urinary symptoms. ER course: Per ER team patient had difficulty ambulating secondary to pain in his bilateral lower extremities; discussed with Dr. Phillips neurology; exam was nonfocal; MRI brain was done which showed no acute findings;MRI of the L-spine is pending to check for any metastatic spine disease. CT of the chest showed left upper lobe pneumonia-given antibiotics.? Admitted for further management . Pneumonia. Treated with Rocephin and azithromycin, supplemental oxygen and albuterol. Did well. Home with a few more days of ceftin and azithromycin. some degree of lung damage from radiation. JULES on CKD. Lisinopril held. Renal function improved. <Tejal Rodriguez NP - Last Filed: 02/06/21 16:54> Time Spent with Patient Time attestation: Total time spent providing and/or coordinating discharge services: <Tejal Rodriguez NP - Last Filed: 02/06/21 16:54> Discharge coordination time: Greater than 30 minutes <Tejal Rodriguez NP - Last Filed: 02/06/21 16:54> Quality: Stroke Does the patient have a stroke diagnosis?: No <Tejal Rodriguez NP - Last Filed: 02/06/21 16:54> Physical Exam Vital Signs: Vital Signs: Last Vital Signs Temp 97.5 F 02/06/21 07:35 Pulse 86 02/06/21 07:35 Resp 18 02/06/21 07:35 BP 133/62 02/06/21 07:35 Pulse Ox 98 02/06/21 07:35 Body Mass Index 33.5 <Tejal Rodriguez NP - Last Filed: 02/06/21 16:54> Appearing in no acute distress head is normocephalic atraumatic eyes pupils are PERRLA sclera is anicteric mouth throat mucous membranes are intact and moist neck is supple no lymphadenopathy, no JVD noted lung sounds are clear to auscultation heart regular rate rhythm, clear S1, S2 positive bowel sounds, abdomen is soft, nontender neuro patient is alert x3, no focal deficits <Tejal Rodriguez NP - Last Filed: 02/06/21 16:54> DS: Data Data Completed and Pending Labs on day of discharge: Laboratory Results - last 24 hr 02/05/21 02/05/21 02/05/21 07:15 07:15 08:20 WBC 7.4 RBC 3.28 L Hgb 9.1 L Hct 29.3 L MCV 89.3 MCH 27.7 MCHC 31.1 RDW 13.6 Plt Count 192 D MPV 10.7 Immature Gran % (Auto) 0.4 Neut % (Auto) 64.9 Lymph % (Auto) 19.2 L [place] % (Auto) 9.8 Eos % (Auto) 5.2 H Baso % (Auto) 0.5 Lymph # (Auto) 1.4 [place] # (Auto) 0.7 Eos # (Auto) 0.4 Baso # (Auto) 0.0 Abs Immat Gran (auto) 0.03 Absolute Neuts (auto) 4.8 Absolute Nucleated RBC 0.000 Nucleated RBC % (auto) 0.0 Smear Tech's Comments VERIFIED Sodium 141 Potassium 5.1 Chloride 113 H Carbon Dioxide 20 L Anion Gap 13 BUN 47 H Creatinine 2.51 H Estim Creat Clear Calc 30.9 Estimated GFR 25 POC Glucose 81 Random Glucose 56 L* Calcium 8.9 02/05/21 02/05/21 02/05/21 14:10 16:39 21:38 WBC RBC Hgb Hct MCV MCH MCHC RDW Plt Count MPV Immature Gran % (Auto) Neut % (Auto) Lymph % (Auto) [place] % (Auto) Eos % (Auto) Baso % (Auto) Lymph # (Auto) [place] # (Auto) Eos # (Auto) Baso # (Auto) Abs Immat Gran (auto) Absolute Neuts (auto) Absolute Nucleated RBC Nucleated RBC % (auto) Smear Tech's Comments Sodium Potassium Chloride Carbon Dioxide Anion Gap BUN Creatinine Estim Creat Clear Calc Estimated GFR POC Glucose 95 230 H 102 Random Glucose Calcium 02/06/21 04:23 WBC RBC Hgb Hct MCV MCH MCHC RDW Plt Count MPV Immature Gran % (Auto) Neut % (Auto) Lymph % (Auto) [place] % (Auto) Eos % (Auto) Baso % (Auto) Lymph # (Auto) [place] # (Auto) Eos # (Auto) Baso # (Auto) Abs Immat Gran (auto) Absolute Neuts (auto) Absolute Nucleated RBC Nucleated RBC % (auto) Smear Tech's Comments Sodium 139 Potassium 5.0 Chloride 110 H Carbon Dioxide 22 Anion Gap 12 BUN 51 H Creatinine 2.47 H Estim Creat Clear Calc 31.4 Estimated GFR 26 POC Glucose Random Glucose 65 Calcium 8.9 Preliminary micro results at discharge 02/04/21 18:07 Blood Culture - Preliminary Blood - Venous No growth after 24 hours. 02/04/21 18:21 Blood Culture - Preliminary Blood - Venous No growth after 24 hours. 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 [employer] [Primary Care Provider] - 1 Week <Tejal Rodriguez NP - Last Filed: 02/06/21 16:54> Discharge Medications: New azithromycin 500 mg Tablet 500 mg PO Q24H Qty: 5 RF: 0 cefuroxime axetil 500 mg tablet 500 mg PO BID Qty: 10 RF: 0 Continued glipizide 5 mg tablet extended release 24hr 5 mg PO DAILY 90 Days Qty: 90 RF: 0 ipratropium-albuterol 0.5 mg-3 mg(2.5 mg base)/3 mL solution for nebulization 3 ml inhalation TID-QID PRN (Reason: wheezing/SOB.) RF: 0 gabapentin 300 mg capsule 300 mg PO BEDTIME RF: 0 lisinopril 10 mg tablet 10 mg PO DAILY Qty: 90 RF: 2 pioglitazone 30 mg tablet 30 mg PO DAILY 90 Days Qty: 90 RF: 2 simvastatin 20 mg tablet 20 mg PO BEDTIME Qty: 90 RF: 2 ferrous sulfate 325 mg (65 mg iron) tablet 325 mg PO BID RF: 0 ergocalciferol (vitamin D2) 1,250 mcg (50,000 unit) capsule 1,250 mcg PO Q2W RF: 0 <Tejal Rodriguez NP - Last Filed: 02/06/21 16:54> Discharge Orders: Discharge Order (Routine); Ordered 02/06/21 Ordered By: Tejal Rodriguez <Tejal Rodriguez NP - Last Filed: 02/06/21 16:54> Diet: advance to usual diet <Tejal Rodriguez NP - Last Filed: 02/06/21 16:54> advance to usual diet <Leo Herrmann MD - Last Filed: 02/15/21 16:11> Activity on Discharge: As tolerated <Tejal Rodriguez NP - Last Filed: 02/06/21 16:54> As tolerated <Leo Herrmann MD - Last Filed: 02/15/21 16:11> Stand Alone Forms: Patient Portal Discharge page <Tejal Rodriguez NP - Last Filed: 02/06/21 16:54> Care Plan Goals: Resolution of pneumonia symptoms <Tejal Rodriguez NP - Last Filed: 02/06/21 16:54> Health Concerns: Pneumonitis Leg pain <Tejal Rodriguez NP - Last Filed: 02/06/21 16:54> Plan of Treatment: Continue medications as prescribed Follow up with your primary care provider as needed <Tejal Rodriguez NP - Last Filed: 02/06/21 16:54> Assessment: See discharge summary I saw and examine patient and discussed physical finding, labs, medication and studies with LAB ANIMAL TECHNICIAN and I agree with plan and disposition as above. --Morenita Herrmann MD <Tejal Rodrigeuz NP - Last Filed: 02/06/21 16:54> Discharge Date/Time: 02/06/21 11:48 <Tejal Rodriguez NP - Last Filed: 02/06/21 16:54>
[2021-02-06 08:14] LABS: Glucose, Whole Blood 87 mg/dL (60-115)
[2021-02-06] MEDS: Ferrous Sulfate 324 MG TABLET.DR PO (08:46)
--- NOTE | 2021-02-06 10:48 | MHC.CM.PN ---
PER HOSPITALIST PT IS MEDICALLY CLEARED FOR D/C AND WILL NEED HOME PT ONLY, , CM MET W/PT TO DETERMINE IF HE HAD TRANSPORTATION HOME AND PT REPORTS HE WILL BE STAYING WITH HIS SON SELINA IN [facility], CM CONTACTED PT'S SON AT 10:45AM [phone] TO VERIFY ADDRESS, CM WILL WORK ON FINDING [facility] FOR HOME PT IN [place]. D/C HOME W/HOME PT VNA TBD D/T CHANGE IN LOCATION, PT HAS ARRANGED FOR TRANSPORT AT 11:30AM.
== END 2021-02-06 11:48 | DRG 194 ==
LOC: HO.ED 18:04 → HO.EDOVER 20:08 → HO.S3 02-05 12:15
PROVIDERS: Emergency Medicine; Physician Assistant Medical; Admitting Provider Hospitalist; Emergency Provider Emergency Medicine; PCP Nurse Practitioner Family; Visit Provider Nurse Practitioner Acute Care
DX: J18.9 Pneumonia, unspecified organism (principal); N17.9 Acute kidney failure, unspecified; N18.4 Chronic kidney disease, stage 4 (severe); C34.90 Malignant neoplasm of unspecified part of unspecified bronchus or lung; I12.9 Hypertensive chronic kidney disease with stage 1 through stage 4 chronic kidney disease, or unspecified chronic kidney disease; E11.22 Type 2 diabetes mellitus with diabetic chronic kidney disease; M77.31 Calcaneal spur, right foot; J44.9 Chronic obstructive pulmonary disease, unspecified; Z20.822 Contact with and (suspected) exposure to COVID-19; Z87.891 Personal history of nicotine dependence; Z79.899 Other long term (current) drug therapy
CPT/HCPCS: 36415; 70551; 71045; 71250; 72148; 73610; 80048; 80076; 81001; 82947; 83605; 83735; 83880; 84484; 84550; 85025; 85610; 85652; 86140; 87040; 87635; 93005; 93306; 93970; 96365; 96367; 97116; 97162; 99285; J0456; J0696; J1650; Q9957

== ENCOUNTER → 2021-07-30 11:31 | Outpatient (BNVA) | payer MEDICARE, OTHER, SELFPAY | PROVIDERS: PCP Nurse Practitioner Family; Visit Provider Orthopaedic Surgery | DX: M17.11 Unilateral primary osteoarthritis, right knee (principal) | CPT/HCPCS: 99212 ==

== ENCOUNTER → 2021-08-25 13:52 | Outpatient (BNVA) | payer MEDICARE, OTHER, SELFPAY | PROVIDERS: PCP Nurse Practitioner Family; Visit Provider Orthopaedic Surgery | DX: Z13.89 Encounter for screening for other disorder (principal) ==

== ENCOUNTER 2021-09-04 09:39 | Outpatient (REF) | payer MEDICARE, OTHER, SELFPAY ==
[2021-09-04 11:07] LABS: MANUAL DIFF FLAG NO
[2021-09-04 11:16] LABS: Basophils Absolute Auto 0.1 X10*3/uL (0.0-0.2); Basophils Percent Auto 0.6 % (0-2); Eosinophils Absolute Auto 0.7 X10*3/uL (0.0-0.4); Eosinophils Percent Auto 8.8 % (0-4); Hematocrit 32.3 % (42.0-52.0); Hemoglobin 9.8 g/dl (14.0-18.0); Imm Gran Abs Auto 0.02 X10*3/uL (0.00-0.03); Imm Gran Pct Auto 0.2 % (0.0-0.4); Lymphocytes Absolute Auto 2.4 X10*3/uL (1.2-4.9); Lymphocytes Percent Auto 29.6 % (20-40); Mean Corpuscular HGB Conc 30.3 g/dl (31.0-36.0); Mean Corpuscular Hemoglobin 26.6 pg (27.0-33.0); Mean Corpuscular Volume 87.5 fL (80.0-98.0); Mean Platelet Volume 11.3 fL (9.4-12.4); Monocytes Absolute Auto 0.8 X10*3/uL (0.1-1.2); Monocytes Percent Auto 10.2 % (2-11); Neutrophils Absolute Auto 4.1 x10*3/uL (2.0-8.3); Neutrophils Percent Auto 50.6 % (45-73); Platelet Count 248 X10*3/uL (160-400); Red Blood Count 3.69 X10*6/uL (4.60-5.80); Red Cell Distribution Width 14.2 % (11.0-16.0); White Blood Count 8.2 X10*3/uL (4.8-10.8)
[2021-09-04 11:25] LABS: Estimated Average Glucose 146 mg/dL; Hemoglobin A1c % 6.7 %
[2021-09-04 11:28] LABS: Appearance Urine CLEAR; Color Urine YELLOW; Glucose Urine UA NEG (NEG); Leukocyte Esterase Urine NEG (NEG); Nitrite Urine NEG (NEG); UACC Culture Trigger NO; Urine Blood TRACE (NEG); Urine Ketones NEG (NEG); Urine Protein 2+ MG/DL (NEG-TRACE)
[2021-09-04 11:40] LABS: Alanine Aminotransferase 19 U/L (0-40); Albumin Level 3.2 g/dL (3.5-5.0); Alkaline Phosphatase 143 U/L (39-117); Anion Gap 12 (12-20); Aspartate Amino Transferase 15 U/L (5-37); Bilirubin Total 0.2 mg/dL (0.0-1.0); Blood Urea Nitrogen 65 mg/dL (9-16); Carbon Dioxide 22 mmol/L (22-29); Chloride 112 mmol/L (96-108); Cholesterol 172 mg/dL; Estimated Glomerular Filt Rate 18; Glucose Fasting 89 mg/dL (60-99); HDL Cholesterol 43 mg/dL; LDL Cholesterol Calculated 107 mg/dl; Potassium 5.3 mmol/L (3.3-5.1); Sodium 141 mmol/L (135-145); Total Protein 6.9 g/dL (6.5-8.0); Triglycerides 113 mg/dL
[2021-09-04 11:56] LABS: Mucus Urine 2+ /LPF
[2021-09-04 11:57] LABS: RBC Urine 0-2 /HPF (0); WBC Urine 0 /HPF (0-4)
[2021-09-04 12:03] LABS: Prostate Specific Antigen Scr 1.64 ng/mL (<0.05-4.0); TSH reflex Free T4 2.52 uIU/mL (0.32-4.0); Vitamin D 25-OH Total 19.1 ng/mL (>30)
== END 2021-09-04 09:40 | disposition home or self-care (01) ==
LOC: HO.HMGCLDS 09:39
PROVIDERS: Absent Provider Internal Medicine Nephrology; PCP Nurse Practitioner Family; Visit Provider Orthopaedic Surgery
DX: Z01.812 Encounter for preprocedural laboratory examination (principal); Z12.5 Encounter for screening for malignant neoplasm of prostate; C34.90 Malignant neoplasm of unspecified part of unspecified bronchus or lung
CPT/HCPCS: 36415; 80048; 80053; 80061; 81001; 82306; 83036; 84153; 84443; 85025

== ENCOUNTER → 2021-09-07 09:43 | Outpatient (BNVA) | payer MEDICARE, OTHER, SELFPAY | PROVIDERS: PCP Nurse Practitioner Family; Visit Provider Internal Medicine | DX: J98.4 Other disorders of lung (principal); J44.9 Chronic obstructive pulmonary disease, unspecified; C34.90 Malignant neoplasm of unspecified part of unspecified bronchus or lung; M17.11 Unilateral primary osteoarthritis, right knee | CPT/HCPCS: 94618; 99212 ==

== ENCOUNTER 2021-09-21 14:30 | Outpatient (REF) | payer MEDICARE, OTHER, SELFPAY ==
[2021-09-21 16:34] LABS: Hematocrit 32.6 % (42.0-52.0); Hemoglobin 9.8 g/dl (14.0-18.0); Mean Corpuscular HGB Conc 30.1 g/dl (31.0-36.0); Mean Corpuscular Hemoglobin 26.1 pg (27.0-33.0); Mean Corpuscular Volume 86.7 fL (80.0-98.0); Platelet Count 287 X10*3/uL (160-400); Red Blood Count 3.76 X10*6/uL (4.60-5.80); White Blood Count 7.4 X10*3/uL (4.8-10.8)
[2021-09-21 16:48] LABS: Anion Gap 14 (12-20); Blood Urea Nitrogen 59 mg/dL (9-16); Carbon Dioxide 20 mmol/L (22-29); Chloride 110 mmol/L (96-108); Estimated Glomerular Filt Rate 20; Glucose Random 184 mg/dL (60-115); Potassium 5.6 mmol/L (3.3-5.1); Sodium 138 mmol/L (135-145)
[2021-09-21 17:13] LABS: Estimated Average Glucose 146 mg/dL; Hemoglobin A1c % 6.7 %
== END 2021-09-21 14:31 | disposition home or self-care (01) ==
LOC: HO.HMGCLDS 14:30
PROVIDERS: Absent Provider Orthopaedic Surgery; PCP Nurse Practitioner Family; Visit Provider Nurse Practitioner Family
DX: Z01.812 Encounter for preprocedural laboratory examination (principal); Z01.810 Encounter for preprocedural cardiovascular examination
CPT/HCPCS: 36415; 80048; 83036; 85027

== ENCOUNTER → 2021-09-23 12:31 | Outpatient (BNVA) | payer MEDICARE, OTHER, SELFPAY | PROVIDERS: PCP Nurse Practitioner Family; Visit Provider Physician Assistant | DX: Z01.818 Encounter for other preprocedural examination (principal); M17.11 Unilateral primary osteoarthritis, right knee | CPT/HCPCS: 99212 ==

== ENCOUNTER 2021-09-27 12:42 | Outpatient (REF) | payer MEDICARE, OTHER, SELFPAY ==
[2021-09-27 14:08] LABS: Anion Gap 13 (12-20); Carbon Dioxide 21 mmol/L (22-29); Chloride 109 mmol/L (96-108); Potassium 4.7 mmol/L (3.3-5.1); Sodium 138 mmol/L (135-145)
== END 2021-09-27 12:43 | disposition home or self-care (01) ==
LOC: HO.HMGCLDS 12:42
PROVIDERS: PCP Nurse Practitioner Family; Visit Provider Internal Medicine Nephrology
DX: Z13.89 Encounter for screening for other disorder (principal)
CPT/HCPCS: 36415; 80051

== ENCOUNTER 2021-09-28 13:37 | Inpatient (IN) | payer MEDICARE, OTHER, SELFPAY ==
--- NOTE | 2021-09-15 | ECG_ITS ---
Test Reason : PREOP Blood Pressure : / mmHG Vent. Rate : 064 BPM Atrial Rate : 064 BPM P-R Int : 200 ms QRS Dur : 102 ms QT Int : 408 ms P-R-T Axes : 068 -30 050 degrees QTc Int : 420 ms Normal sinus rhythm Left axis deviation Left ventricular hypertrophy ( R in aVL , [place] product , Romhilt-Shukla ) Abnormal ECG When compared with ECG of 04-FEB-2021 09:15, Vent. rate has decreased BY 35 BPM Referred By: Shey Douglas Electronically Signed By:Eloy Mejia
[2021-09-15 12:06] VITALS: BP 137/63; PULSE 74; RESP 22; O2SAT 96; BMI 34.3
--- NOTE | 2021-09-15 12:16 | P.CONAN_ITS ---
Documented by User: Gianna Lenz NP 09/27/21 14:18 HPI - Anesthesia Eval Consult details Narrative: 71yo M for Right Knee Replacement Total s/p left knee total 2016 s/p LLL-ectomy 2019 with chemo/rad PCP clearance dependant on renal clearance. Pulmonary cleared PREOP CLEARANCE : PULMONARY STATUS IS STABLE,? HE DOES HAVE MODERATELY SEVERE RESTRICTIVE PULMONARY DISORDER. ALSO MILD OBSTRUCTIVE AIRWAY DISORDER IS WELL CONTROLLED. FROM PULMONARY POINT OF VIEW HE IS FIT TO UNDERGO SURGERY. HE IS A RELATIVELY HIGH SURGICAL RISK. POSTOPERATIVELY WOULD NEED A CLOSE MONITORING OF HIS RESPIRATORY STATUS. Renal clearance pending updated K and SCr. OK to proceed if K<5.4, SCr < 3.6. 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 K = 4.7 on 09/27/21 Scr = 3.13 on 09/21/21 PMFSH Active Problems Active Problems: All Active Problems (Updated 09/15/21 @ 11:59 by Dia Obrien RN) Mediastinal lymphadenopathy (Acute) Screening PSA (prostate specific antigen) (Acute) Colon cancer screening (Acute) Chronic constipation (Acute) Hyperkalemia (Acute) Elevated alkaline phosphatase level (Acute) Poor nutrition (Acute) Systolic murmur (Acute) Overgrown toenails (Acute) Arthritis of right knee (Acute) Physical deconditioning (Acute) Carcinoma, lung (Acute) Screening PSA (prostate specific antigen) (Acute) Cough (Acute) Dyspnea on exertion (Acute) COPD (chronic obstructive pulmonary disease) (Acute) Restrictive lung disease (Acute) COPD (chronic obstructive pulmonary disease) (Acute) Lung nodule (Acute) Personal history of nicotine dependence (Acute) Past Medical History Medical History (Updated 09/27/21 @ 13:20 by Gianna Lenz NP) Adenocarcinoma Adenocarcinoma of lung, stage 3 Arthritis Chronic renal insufficiency CKD (chronic kidney disease) COPD (chronic obstructive pulmonary disease) COPD (chronic obstructive pulmonary disease) Cough COVID-19 vaccine series completed Diabetes Dyspnea on exertion HTN (hypertension) Lung nodule Personal history of nicotine dependence Restrictive lung disease Family History Family History Father No problems noted. 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 If so, by whom?: No Are you DNR?: No Advance Directives: Yes Advance Directives Information Provided: Yes Advance Directives on File: Yes Advance Directives Date on File: 01/12/16 Recently lost weight without trying: No Eating poorly because of decreased appetite: No Nutrition Risks: No Nutritional Risk Poor oral hygiene: No (upper & lower crowns-front) service: No Current occupational status: retired Cognitive needs: No Hearing needs: No Vision needs: No Narrative Narrative: No recent illness No chest pain. MESA at baseline. Increased SOB with stairclimbing. Able to climb ~1 flight before needing to stop. Meds Allergies Allergy/AdvReac Type Severity Reaction Status Date / Time No Known Allergies Allergy Verified 09/16/21 15:06 [No Known Allergies*] Home Medications Medication Instructions Recorded Confirmed Last Taken Type ergocalciferol (vitamin D2) 1,250 1,250 mcg PO Q2W 01/19/21 09/16/21 Unknown History mcg (50,000 unit) capsule ipratropium 0.5 mg-albuterol 3 mg 3 ml INHALATION TID-QID PRN 02/04/21 09/16/21 02/03/21 History (2.5 mg base)/3 mL nebulization soln albuterol sulfate 90 mcg/actuation 2 puff INHALATION Q6H PRN 09/07/21 09/16/21 Unknown History aerosol inhaler pioglitazone 30 mg tablet 30 mg PO DAILY tab 09/07/21 09/16/21 Unknown History Exam Exam Date and Time: September 15, 2021 1216 Height,Weight and Vital Signs: Height 5 ft 8 in Weight 102.512 kg Last Vital Signs Pulse 74 09/15/21 12:06 Resp 22 H 09/15/21 12:06 BP 137/63 09/15/21 12:06 Pulse Ox 96 09/15/21 12:06 Pertinent Lab Results Pertinent Lab Results: Laboratory Tests 09/04/21 09:48 WBC 8.2 Hgb 9.8 L Hct 32.3 L Plt Count 248 Laboratory Tests 09/04/21 09/04/21 09/04/21 09:48 09:48 09:48 Hemoglobin A1c % 6.7 Calcium 9.0 Total Bilirubin 0.2 AST 15 ALT 19 Total Protein 6.9 Albumin 3.2 L TSH 2.52 Narrative Narrative: ECHO 01/2021 Conclusions: - 1. Normal LV systolic function with moderate LVH with impaired relaxation filling pattern and increased filling pressures ? ? ? 2. Mildly dilated left atrium? 3. Moderate mitral and calcification with normal cardiac valvular Dopplers ? 4. No gross pericardial effusion ? per Pulmo clearance 08/2021 Spirometry in the office : FVC 44% FEV1 45% FEF 25-75? = 47% THESE RESULTS ARE C/W RESTRICTIVE LUNG DISEASE, MODERATELY SEVERE, COMPARED TO THE RESULTS IN 2020 THERE IS NO SIGNIFICANT CHANGE OR DECLINE Airway Mallampati Class: II TM Dist: >3cm Neck ROM: Limited (Side to side limited d/t shoulder injury) Loose/Missing/Broken Teeth: Yes (Front 6 Top and bottom crowns (12 total)) Heart: RRR Lungs: CTAB Assessment and Plan Assessment Anesthesia Assessment: Anesthesia Plan Discussed and PAT Visit Final Anesthetic Review Family History of Problems with Anesthesia: No History of Problems with Anesthesia: No Documented by User: Evelio Smith MD 09/28/21 14:04 [facility] Past Medical History Medical History (Updated 09/27/21 @ 13:20 by Gianna Lenz NP) Adenocarcinoma Adenocarcinoma of lung, stage 3 Arthritis Chronic renal insufficiency CKD (chronic kidney disease) COPD (chronic obstructive pulmonary disease) COPD (chronic obstructive pulmonary disease) Cough COVID-19 vaccine series completed Diabetes Dyspnea on exertion HTN (hypertension) Lung nodule Personal history of nicotine dependence Restrictive lung disease Family History Family History Father No problems noted. 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 If so, by whom?: No Are you DNR?: No Advance Directives: Yes Advance Directives Information Provided: Yes Advance Directives on File: Yes Advance Directives Date on File: 01/12/16 Recently lost weight without trying: No Eating poorly because of decreased appetite: No Nutrition Risks: No Nutritional Risk Poor oral hygiene: No (upper & lower crowns-front) service: No Current occupational status: retired Cognitive needs: No Hearing needs: No Vision needs: No Meds Allergies Allergy/AdvReac Type Severity Reaction Status Date / Time No Known Allergies Allergy Verified 09/16/21 15:06 [No Known Allergies*] Home Medications Medication Instructions Recorded Confirmed Last Taken Type ergocalciferol (vitamin D2) 1,250 1,250 mcg PO Q2W 01/19/21 09/16/21 Unknown History mcg (50,000 unit) capsule ipratropium 0.5 mg-albuterol 3 mg 3 ml INHALATION TID-QID PRN 02/04/21 09/16/21 02/03/21 History (2.5 mg base)/3 mL nebulization soln albuterol sulfate 90 mcg/actuation 2 puff INHALATION Q6H PRN 09/07/21 09/16/21 Unknown History aerosol inhaler pioglitazone 30 mg tablet 30 mg PO DAILY tab 09/07/21 09/16/21 Unknown History Exam Airway Loose/Missing/Broken Teeth: Yes (Front 6 Top and bottom crowns (12 total), poor dentition ) Assessment and Plan Final Anesthetic Review NPO: Yes ASA Class: III Final Preanesthetic Review: Meds/Allgs Chart Reviewed, Consent Obtained/Reviewed and Anes Risks/Benef Reviewed Patient Risk: High Procedure Risk: Intermediate Anesthetic Plan Anesthetic Plan: Spinal and Regional Block Disposition: Inp. Admit - Standard Bed
[2021-09-15 13:51] LABS: Anion Gap 11 (12-20); Blood Urea Nitrogen 48 mg/dL (9-16); Calcium 9.2 mg/dL (8.4-10.2); Carbon Dioxide 23 mmol/L (22-29); Chloride 108 mmol/L (96-108); Creatinine Clr Calc Pharmacy 26.7; Estimated Glomerular Filt Rate 21; Glucose Random 116 mg/dL (60-115); Potassium 5.4 mmol/L (3.3-5.1); Sodium 137 mmol/L (135-145)
[2021-09-15 14:15] LABS: MRSA Nasal PCR NEGATIVE (Negative); SA Nasal PCR POSITIVE (Negative)
[2021-09-28] VITALS (16 sets, daily range): BP systolic 109–193; BP diastolic 35–78; PULSE 45–79; RESP 16–20; TEMP 36.1–36.7; O2SAT 95–100
--- NOTE | ~2021-09-28 | XR_ITS ---
EXAMINATION: XR KNEE, RIGHT CLINICAL INFORMATION: Right total knee arthroplasty COMPARISON: 01/14/2021 TECHNIQUE: Two views of the right knee. FINDINGS: There is a total right knee arthroplasty. The femoral component articulates appropriately with the tibial and patellar component. Postoperative soft tissue and joint space gas. Anterior skin rito. XR/XR knee RT 2V IMPRESSION: Total right knee arthroplasty in typical positioning and alignment.
[2021-09-28 09:48] LABS: Hematocrit 33.1 % (42.0-52.0)
[2021-09-28 09:55] LABS: INTERNATIONAL NORM RATIO 0.9 (0.9-1.1); Prothrombin Time 10.7 SEC (9.9-13.0)
[2021-09-28 10:10] LABS: COVID-19 Test Negative (Negative)
[2021-09-28] MEDS: 0.9 % Sodium Chloride 1,000 ML 100 ML IVCONT (10:26)
[2021-09-28 10:36] LABS: Glucose, Whole Blood 74 mg/dL (60-115)
--- NOTE | 2021-09-28 11:35 | MHC.SHP ---
Pre-Procedural Eval Section A Date of Service: 09/28/21 The patient is an INPATIENT: No Changes since office visit: Yes Patient answered all questions; No Cold of Flu in the past 2 weeks, No New Medical Problems and No Changes in Medication The History & Physical has been completed within 30 days and I have reviewed it.: Yes Section B Chief Complaint: osteoarthritis Allergies: Allergies Allergy/AdvReac Type Severity Reaction Status Date / Time No Known Allergies Allergy Verified 09/16/21 15:06 [No Known Allergies*] Plan I have reviewed the history and physical and performed a pertinent physical examination on my patient. No changes have occurred unless specified.
--- NOTE | 2021-09-28 13:25 | P.BOP_ITS ---
Brief Operative Note Date of Service: 09/28/21 Pre-op diagnosis: Right knee OA Post-op diagnosis: same Procedure: Right TKA Implants: Sue cemented posterior stabilized 08/28/15/35a Surgeon: Ryan Hare MD Anesthesia: regional and spinal Was an Concrete Finisher used for this Procedure?: Yes Concrete Finisher: Shey Douglas Estimated blood loss (mL): 150 IV fluids (mL): 1,000 Pathology: other Condition: stable Disposition: PACU
[2021-09-28] MEDS: Lactated Ringers 1,000 ML 100 ML IVCONT ×2 (14:47→23:47)
--- NOTE | 2021-09-28 15:16 | P.OP_ITS ---
Operative Note Operative Note Date of Service: 09/28/21 Narrative: Date of Service: 09/28/21 Pre-op diagnosis: Right knee OA Post-op diagnosis: same Procedure: Right TKA Implants: [place] cemented posterior stabilized 08/27/16TS/35a Surgeon: Ryan Hare MD Anesthesia: regional and spinal Was an Web Site Developer used for this Procedure?: Yes Web Site Developer: Shey Douglas Estimated blood loss (mL): 150 IV fluids (mL): 1,000 Pathology: other Condition: stable Disposition: PACU Procedure in detail: The patient was brought to the operating room and prepped and draped in standard sterile fashion. A time-out was called to identify proper site proper procedure proper surgeon and IV antibiotics were administered. 1 g of IV tranexamic acid was administered. I began by making a midline incision to the retinaculum and performed a medial parapatellar arthrotomy. The patella was translated late rally and the knee was flexed up. All three compartments were eburnated in their entirety. I performed a small medial peel and resected the infrapatellar fat pad. Ocean's line was then used to drill my intramedullary femoral guide and my distal femur cut of 12 mm was made in 5 degrees of valgus while protecting the soft tissues. I then measured a # 5 femur and placed my cutting guide and made my anterior posterior and chamfer cuts protecting the soft tissues at all times. I then made my box cut removing the PCL. Once I was satisfied with my cuts I turned my attention to the tibia. I removed the meniscus medially and laterally and , using an external cutting guide, in line with the tibial crest and the third ray, I made my distal tibial cut in 3 deg slope of while protecting the posterior soft tissues at all times. An extension block was used to confirm appropriate amount of bony resection. I then sized a #6 tibia and once I was satisfied that there was complete tibial coverage I placed my trial and with the trial femur in place took the knee through range of motion. I was satisfied with the extension and flexion as well as the stability at 0, 30 and 90 degrees. I then turned my attention to the patella where I removed 1 cm from the undersurface of the patella and then trialed a 35a patellar button. Again the knee was taken through range of motion I was satisfi ed with the tracking. I then returned to the femur and drilled my femoral lug holes and prepared the tibia. A femoral bone plug was placed and the knee was irrigated copiously. I then press fit the patella, tibia and femur in standard fashion. I trialed different inserts until I selected a #16 TS insert. The final insert was placed and a 3 minutes iodine soak with local TXA was performed. A Werewolf cautery wand was used to maintain hemostasis over the capsule and meniscal beds, the gutters and peripatellar soft tissues. The knee was then closed with a running Quill suture, a 3 0 Vicryl and rito on the skin. Patient was then placed in sterile dressing and brought to recovery room in stable condition there were no known complications.
[2021-09-28] MEDS: oxyCODONE HCl Immed Release 5 MG TABLET PO ×2 (16:08→19:55)
[2021-09-28] MEDS: fentaNYL citrate/PF 100 MCG/2 ML VIAL 25 MCG IVPUSH ×2 (16:08→16:13)
[2021-09-28] MEDS: Acetaminophen 325 MG TABLET 650 MG PO (16:09)
[2021-09-28] MEDS: HYDROmorphone HCl 1 MG/ML SYRINGE 0.25 MG IVPUSH (17:20)
[2021-09-28 17:21] LABS: Creatinine Clr Calc Pharmacy 28.1; Estimated Glomerular Filt Rate 23
--- NOTE | 2021-09-28 17:30 | PC.NURSE ---
P patient came with Cooper from PACU I LORIE Douglas notified of need for order E awaiting new order
[2021-09-28] MEDS: ceFAZolin Sodium/Dextrose,Iso 2 GM/50 ML PIGGYBACK IV (17:38)
[2021-09-28] MEDS: Docusate Sodium 100 MG CAPSULE PO (19:56)
[2021-09-28] MEDS: Celecoxib 200 MG CAPSULE PO (19:56)
[2021-09-28] MEDS: 0.9 % Sodium Chloride Flush 3 ML SYRINGE IVFLUSH (23:47)
[2021-09-29] VITALS (7 sets, daily range): BP systolic 117–142; BP diastolic 61–71; PULSE 82–95; RESP 16–20; TEMP 35.6–37.2; O2SAT 97–100
[2021-09-29] MEDS: HYDROmorphone HCl 1 MG/ML SYRINGE 0.25 MG IVPUSH ×2 (02:46→10:07)
[2021-09-29 06:31] LABS: MANUAL DIFF FLAG NO
--- NOTE | 2021-09-29 06:39 | PC.NURSE ---
on 09/29/2021 at 0600. Nurse attempted to remove [place] from patient. Patient refused the removal. Patient stated that he still unable to bear weight on the leg and he is unable to use a bedpan or urinal. The complications of leaving the [place] was explained. Patient understood.
[2021-09-29 06:49] LABS: Basophils Percent Auto 0.5 % (0-2); Eosinophils Absolute Auto 0.3 X10*3/uL (0.0-0.4); Eosinophils Percent Auto 3.3 % (0-4); Hematocrit 31.7 % (42.0-52.0); Hemoglobin 9.7 g/dl (14.0-18.0); Imm Gran Abs Auto 0.04 X10*3/uL (0.00-0.03); Imm Gran Pct Auto 0.5 % (0.0-0.4); Lymphocytes Absolute Auto 0.8 X10*3/uL (1.2-4.9); Lymphocytes Percent Auto 10.5 % (20-40); Mean Corpuscular HGB Conc 30.6 g/dl (31.0-36.0); Mean Corpuscular Hemoglobin 26.6 pg (27.0-33.0); Mean Corpuscular Volume 87.1 fL (80.0-98.0); Mean Platelet Volume 11.1 fL (9.4-12.4); Monocytes Absolute Auto 0.9 X10*3/uL (0.1-1.2); Monocytes Percent Auto 11.7 % (2-11); Neutrophils Absolute Auto 5.7 x10*3/uL (2.0-8.3); Neutrophils Percent Auto 73.5 % (45-73); Platelet Count 232 X10*3/uL (160-400); Red Blood Count 3.64 X10*6/uL (4.60-5.80); Red Cell Distribution Width 14.3 % (11.0-16.0); White Blood Count 7.8 X10*3/uL (4.8-10.8)
[2021-09-29 07:19] LABS: Anion Gap 10 (12-20); Blood Urea Nitrogen 50 mg/dL (9-16); Calcium 8.6 mg/dL (8.4-10.2); Carbon Dioxide 23 mmol/L (22-29); Chloride 111 mmol/L (96-108); Creatinine Clr Calc Pharmacy 29.6; Estimated Glomerular Filt Rate 24; Glucose Fasting 138 mg/dL (60-99); Potassium 5.2 mmol/L (3.3-5.1); Sodium 139 mmol/L (135-145)
--- NOTE | 2021-09-29 08:03 | P.PNOP_ITS ---
Subjective Subjective Date of Service: 09/29/21 Interval history: Postop day 1 status post right total knee Overnight Resting comfortably in bed. Fully catheter intact. Physical Exam Vital Signs: Vital Signs: Last Vital Signs Temp 98.9 F 09/29/21 08:00 Pulse 86 09/29/21 08:00 Resp 16 09/29/21 08:00 BP 142/62 H 09/29/21 08:00 Pulse Ox 98 09/29/21 08:00 O2 Del Method 09/29/21 08:00 O2 Flow Rate 2 09/29/21 03:32 BMI result Body Mass Index 34.3 Const: General: cooperative, healthy appearing and no acute distress Resp: Effort & Inspection: normal respiratory effort and able to speak in complete sentences Cardio: Rate: regular rate Peripheral pulses: Peripheral pulses 2+ throughout GI: Palpation (GI): Soft to palpation Skin: General skin exam: no rashes or lesions noted Extrem: Other: incision clean dry and intact. Franca intact. No erythema or joint effusion. Calf supple nontender. Neurovascularly intact. Procedures Date of Service Date of Service: 09/29/21 Progress Note: A&P Assessment and plan (1) Status post total right knee replacement: Status: Acute Assessment and Plan: * Continue pain mgmnt * Begin Aspirin for dvt ppx * begin PT for RT TKA * Dispo planning-Pending PT eval, pain mgmnt Time Spent With Patient Time: Total time spent is greater than 50% in coordination of care (as documented) at patient's floor/unit and/or counseling patient: Quality Stroke Does the patient have a stroke diagnosis?: No VTE Prior VTE?: No VTE Risk Level:: Surgical - very high VTE Device Contraindication: N/A - Device Ordered VTE Drug Contraindication: N/A - Med Ordered
[2021-09-29] MEDS: oxyCODONE HCl Immed Release 5 MG TABLET PO ×2 (09:01→16:52)
[2021-09-29] MEDS: Docusate Sodium 100 MG CAPSULE PO ×2 (09:01→21:09)
[2021-09-29] MEDS: Celecoxib 200 MG CAPSULE PO ×2 (09:02→21:09)
[2021-09-29] MEDS: Lactated Ringers 1,000 ML 100 ML IVCONT ×2 (10:10→21:08)
[2021-09-29] MEDS: 0.9 % Sodium Chloride Flush 3 ML SYRINGE IVFLUSH (10:11)
--- NOTE | 2021-09-29 10:55 | P.CONHOSP_ITS ---
History of Present Illness Data of Consult Service Date: 09/29/21 Primary Care Provider: Harish Powers [facility] HPI Reason for consult: medical mgmt This is a 71 yo M with a PMH as outlined below who is admitted under to ortho services s/p R TKA. Medical consult requested for medical mgmt. Pt seen and examined in his room. He reports he worked with PT this AM. He reports pain in the knee but controlled with meds. Denies any cardiac, respiratory or abodminal symptoms. Concerned about his blood sugars and not being on his baseline meds. Review of Systems Review of Systems: negative except [facility] Medical History Adenocarcinoma Adenocarcinoma of lung, stage 3 Arthritis Chronic renal insufficiency CKD (chronic kidney disease) COPD (chronic obstructive pulmonary disease) COPD (chronic obstructive pulmonary disease) Cough COVID-19 vaccine series completed Diabetes Dyspnea on exertion HTN (hypertension) Lung nodule Personal history of nicotine dependence Restrictive lung disease Family History Father No problems noted. Mother Diabetes mellitus Surgical History H/O pneumonectomy History of arthroplasty of left knee History of bronchoscopy History of right cataract extraction Social History Household Members: None Housing: House Are you a primary morning caregiver to a significant other at home: No Do you presently have visiting nurse or other home services: No Alcohol intake: never Patient Tobacco Use Status: Former Tobacco user Quit Date: 2019 Tobacco use type: Cigarette Years Smoked: 55 e-Cigarette/Vaping Use: Never Used Second Hand Smoke Exposure: No Use of substances other than those prescribed or required for medical reasons: No Currently Displaying Signs/Symptoms of Drug Intoxication Withdrawal: No Have you been hit, kicked, punched, or otherwise hurt by someone within the past year? If so, by whom?: No Are you DNR?: No Advance Directives: Yes Advance Directives Information Provided: Yes Advance Directives on File: Yes Advance Directives Date on File: 01/12/16 Do you have thoughts of harming others: None Do you have a plan to hurt others: No Plan Recently lost weight without trying: No Eating poorly because of decreased appetite: No Nutrition Risks: No Nutritional Risk Poor oral hygiene: No (upper & lower crowns-front) service: No Current occupational status: retired Cognitive needs: No Hearing needs: No Vision needs: No Meds Allergies Allergy/AdvReac Type Severity Reaction Status Date / Time No Known Allergies Allergy Verified 09/16/21 15:06 [No Known Allergies*] Active Medications: Current Medications Acetaminophen (Acetaminophen 325 Mg Tablet) 650 mg PO Q6H PRN PRN Reason: Pain, Mild (Pain Scale 1-3) Last Admin: 09/28/21 16:09 Dose: 650 mg Celecoxib (Celecoxib 200 Mg Capsule) 200 mg PO BID [facility] Last Admin: 09/29/21 09:02 Dose: 200 mg Docusate Sodium (Docusate Sodium 100 Mg Capsule) 100 mg PO BID [facility] Last Admin: 09/29/21 09:01 Dose: 100 mg Enoxaparin Sodium (Enoxaparin Sodium 30 Mg/0.3 Ml Syringe) 30 mg SUBCUT Q24H ROB Hydromorphone HCl (Hydromorphone Hcl 1 Mg/Ml Syringe) 0.25 mg IVPUSH Q4H PRN; Protocol PRN Reason: Pain, Severe (Pain Scale 7-10) Last Admin: 09/29/21 10:07 Dose: 0.25 mg Lactated Ringer's (Lr) 1,000 mls @ 100 mls/hr IVCONT .Q10H [facility] Last Admin: 09/29/21 10:10 Dose: 100 mls/hr Cefazolin Sodium/Dextrose (Ancef) 2 gm in 50 mls @ 100 mls/hr IV POSTOP [facility] Last Infusion: 09/28/21 18:16 Dose: Infused Insulin Human Lispro (Insulin Lispro 100 Unit/Ml 3 Ml Vial) 0 unit SUBCUT QIDACHS [facility]; Protocol Ondansetron HCl (Ondansetron Hcl 4 Mg/2 Ml Vial) 4 mg IVPUSH Q8H PRN PRN Reason: Nausea and Vomiting Oxycodone HCl (Oxycodone Hcl Immed Release 5 Mg Tablet) 5 mg PO Q4H PRN PRN Reason: Pain, Moderate (Pain Scale 4-6 Last Admin: 09/29/21 09:01 Dose: 5 mg Sodium Chloride (0.9 % Sodium Chloride Flush 3 Ml Syringe) 3 ml IVFLUSH QSHIFT ROB Last Admin: 09/29/21 10:11 Dose: 3 ml Home Medications Medication Instructions Recorded Confirmed Last Taken Type albuterol sulfate 90 mcg/actuation 2 puff inhalation Q6H PRN Wheezing 09/07/21 09/28/21 Unknown History aerosol inhaler Physical Exam Vital Signs and Narrative: Vital Signs: Last Vital Signs Temp 98.9 F 09/29/21 08:00 Pulse 86 09/29/21 09:50 Resp 16 09/29/21 08:00 BP 142/62 H 09/29/21 09:50 Pulse Ox 98 09/29/21 09:50 O2 Del Method 09/29/21 08:00 O2 Flow Rate 2 09/29/21 03:32 BMI result Body Mass Index 34.3 Const: Other: General - no acute distress, appears comfortable Cardiovascular - regular rate and rhythm, S1-S2 Lungs - normal respiratory effort, clear to auscultation bilaterally, no wheezing Abdomen - soft, nontender, no rebound or guarding Extremities - no edema bilaterally Neuro - awake and alert, no focal deficits Results Labs CBC and Chem 7: 09/29/21 05:22 09/29/21 05:22 Labs: Laboratory Results - last 24 hr 09/28/21 09/29/21 09/29/21 17:01 05:22 05:22 MCV 87.1 MCH 26.6 L MCHC 30.6 L RDW 14.3 Plt Count 232 MPV 11.1 Immature Gran % (Auto) 0.5 H Neut % (Auto) 73.5 H Lymph % (Auto) 10.5 L [place] % (Auto) 11.7 H Eos % (Auto) 3.3 Baso % (Auto) 0.5 Lymph # (Auto) 0.8 L [place] # (Auto) 0.9 Eos # (Auto) 0.3 Baso # (Auto) 0.0 Abs Immat Gran (auto) 0.04 H Absolute Neuts (auto) 5.7 Absolute Nucleated RBC 0.000 Nucleated RBC % (auto) 0.0 Anion Gap 10 L Estim Creat Clear Calc 28.1 29.6 Estimated GFR 23 24 Fasting Glucose 138 H D Calcium 8.6 Imaging Radiologist's Impressions: Impressions Knee X-Ray 09/28/21 14:49 IMPRESSION: Total right knee arthroplasty in typical positioning and alignment. Assessment and Plan (1) Diabetes mellitus: Status: Acute Plan 71 yo M with multiple medical issues including HTN, COPD, DM, CKD4 who is admitted under ortho after R TKA. Medical consult requested for medical mgmt. 1. DM hold orals -- use sliding scale; resume orals upon discharge explained to the patient why we are opting for insulin and he is agreeable at this time 2. HTN start his baseline lisinopril 3. Chronic copd not in exacerbation prn albuterol 4. CKD4 monitor renal function Medically stable. Will sign off at this time. Reconsult PRN. Thank you.
--- NOTE | 2021-09-29 11:29 | HO.POSTANES ---
Post Anesthesia Evaluation Post Anesthesia Evaluation Vital Signs: Vital Signs Temp Pulse Resp BP Pulse Ox O2 Del Method O2 Flow Rate 09/29/21 09:50 86 142/62 H 98 09/29/21 08:00 98.9 F 86 16 142/62 H 98 Room Air 09/29/21 03:32 96.1 F L 82 18 140/70 H 100 Nasal Cannula 2 09/28/21 23:41 97.1 F 79 18 140/77 H 100 Nasal Cannula 2 Anesthesia: Spinal and Nerve Block Mental Status: Awake Pain Control: Satisfactory Nausea/Vomiting: None Hydration: Adequate Anesthesia-Related Issues: No Anes. Related Issues
[2021-09-29 11:35] LABS: Glucose, Whole Blood 237 mg/dL (60-115)
[2021-09-29] MEDS: lisinopriL 10 MG TABLET PO (12:12)
[2021-09-29] MEDS: Enoxaparin Sodium 30 MG/0.3 ML SYRINGE SUBCUT (12:13)
[2021-09-29] MEDS: Insulin Lispro 100 UNIT/ML 3 ML VIAL SUBCUT ×2 (12:19→21:15)
--- NOTE | 2021-09-29 15:55 | MHC.CM.PN ---
CASE MANAGEMENT NOTIFIED BY [facility] PATIENT CARE LIAISON THAT A REFERRAL TO [facility] IS PREFERRED PLAN. REFERRAL PLACED. CASE MANAGEMENT TO FOLLOW UP WITH PATIENT ASSESSMENT ACCORDING TO MEDICAL RECORD, PATIENT IS COVID VACCINATED X 4.
--- NOTE | 2021-09-29 16:07 | PC.NURSE ---
hogan removed at 1100. Patient tolerated well. Hasd 1st void of 200cc at 1400. DTV #2 @ 1999. Urinal within reach.
[2021-09-29 17:11] LABS: Glucose, Whole Blood 109 mg/dL (60-115)
[2021-09-29 20:07] LABS: Glucose, Whole Blood 160 mg/dL (60-115)
[2021-09-29] MEDS: Ferrous Sulfate 324 MG TABLET.DR PO (21:09)
[2021-09-29] MEDS: Gabapentin 300 MG CAPSULE PO (21:09)
[2021-09-29] MEDS: Melatonin 3 MG TABLET PO (22:08)
[2021-09-30 03:00] VITALS: BP 107/60; PULSE 69; RESP 16; TEMP 36.1; O2SAT 98
[2021-09-30 06:21] LABS: MANUAL DIFF FLAG NO
[2021-09-30 06:29] LABS: Basophils Percent Auto 0.4 % (0-2); Eosinophils Absolute Auto 0.3 X10*3/uL (0.0-0.4); Eosinophils Percent Auto 4.1 % (0-4); Hematocrit 29.4 % (42.0-52.0); Hemoglobin 9.1 g/dl (14.0-18.0); Imm Gran Abs Auto 0.03 X10*3/uL (0.00-0.03); Imm Gran Pct Auto 0.4 % (0.0-0.4); Lymphocytes Absolute Auto 0.9 X10*3/uL (1.2-4.9); Lymphocytes Percent Auto 11.2 % (20-40); Mean Corpuscular Hemoglobin 26.4 pg (27.0-33.0); Mean Corpuscular Volume 85.2 fL (80.0-98.0); Mean Platelet Volume 10.8 fL (9.4-12.4); Neutrophils Absolute Auto 5.5 x10*3/uL (2.0-8.3); Neutrophils Percent Auto 70.9 % (45-73); Platelet Count 204 X10*3/uL (160-400); Red Blood Count 3.45 X10*6/uL (4.60-5.80); Red Cell Distribution Width 14.2 % (11.0-16.0); White Blood Count 7.8 X10*3/uL (4.8-10.8)
[2021-09-30 06:44] LABS: Anion Gap 10 (12-20); Blood Urea Nitrogen 40 mg/dL (9-16); Calcium 8.3 mg/dL (8.4-10.2); Carbon Dioxide 21 mmol/L (22-29); Chloride 112 mmol/L (96-108); Estimated Glomerular Filt Rate 26; Glucose Fasting 108 mg/dL (60-99); Potassium 4.7 mmol/L (3.3-5.1); Sodium 138 mmol/L (135-145)
[2021-09-30] MEDS: Lactated Ringers 1,000 ML 100 ML IVCONT (06:45)
[2021-09-30 07:00] VITALS: BP 118/70; PULSE 75; RESP 18; TEMP 36.7; O2SAT 97
[2021-09-30 07:37] LABS: Glucose, Whole Blood 97 mg/dL (60-115)
--- NOTE | 2021-09-30 08:33 | PM.DS ---
DS: Providers Provider Date of Service: 09/30/21 Date of admission: 09/28/21 13:37 Primary care physician: KT Bradley Consults: 09/28/21 16:42 Consult to Hospitalist Routine Consulting Provider: Hospitalist Reason For Exam: copd,hyper K, DS: Diagnosis Discharge Diagnosis (1) Diabetes mellitus: Status: Acute DS: Summary Hospital Course Hospital Course: The patient underwent a successful right total knee arthroplasty, they were transferred to PACU and then to the floor to recover. During their stay, their vitals were stable, afebrile at 97.0. Labs were unremarkable, H/H 9.1/29.4. POD 1 they were started on Lovenox for DVT ppx, they also received Physical Therapy services twice a day. Prior to discharge, their dressing was changed, incision clean dry and intact, new Aquacel dressing applied and the plan was to be discharged to rehab. Time Spent with Patient Time attestation: Total time spent providing and/or coordinating discharge services: Discharge coordination time: Less than 30 minutes Quality: Safe Use of Opioids Does Pt have an Active Cancer Diagnosis on the Problem List?: No Quality: Stroke Does the patient have a stroke diagnosis?: No Physical Exam Vital Signs: Vital Signs: Last Vital Signs Temp 97 F 09/30/21 03:00 Pulse 69 09/30/21 03:00 Resp 16 09/30/21 03:00 BP 107/60 09/30/21 03:00 Pulse Ox 98 09/30/21 03:00 O2 Del Method 09/30/21 03:00 O2 Flow Rate 2 09/29/21 03:32 BMI result Body Mass Index 34.3 DS: Data Data Completed and Pending Pending studies at discharge: Pending at discharge 09/28/21 13:14 Surgical [PTH] Routine Labs on day of discharge: Laboratory Results - last 24 hr 09/29/21 09/29/21 09/29/21 11:30 17:06 20:02 WBC RBC Hgb Hct MCV MCH MCHC RDW Plt Count MPV Immature Gran % (Auto) Neut % (Auto) Lymph % (Auto) [place] % (Auto) Eos % (Auto) Baso % (Auto) Lymph # (Auto) [place] # (Auto) Eos # (Auto) Baso # (Auto) Abs Immat Gran (auto) Absolute Neuts (auto) Absolute Nucleated RBC Nucleated RBC % (auto) Sodium Potassium Chloride Carbon Dioxide Anion Gap BUN Creatinine Estim Creat Clear Calc Estimated GFR POC Glucose 237 H 109 160 H Fasting Glucose Calcium 09/30/21 09/30/21 09/30/21 06:16 06:16 07:24 WBC 7.8 RBC 3.45 L Hgb 9.1 L Hct 29.4 L MCV 85.2 MCH 26.4 L MCHC 31.0 RDW 14.2 Plt Count 204 MPV 10.8 Immature Gran % (Auto) 0.4 Neut % (Auto) 70.9 Lymph % (Auto) 11.2 L [place] % (Auto) 13.0 H Eos % (Auto) 4.1 H Baso % (Auto) 0.4 Lymph # (Auto) 0.9 L [place] # (Auto) 1.0 Eos # (Auto) 0.3 Baso # (Auto) 0.0 Abs Immat Gran (auto) 0.03 Absolute Neuts (auto) 5.5 Absolute Nucleated RBC 0.000 Nucleated RBC % (auto) 0.0 Sodium 138 Potassium 4.7 Chloride 112 H Carbon Dioxide 21 L Anion Gap 10 L BUN 40 H Creatinine 2.42 H Estim Creat Clear Calc 32.0 Estimated GFR 26 POC Glucose 97 Fasting Glucose 108 H Calcium 8.3 L Discharge Plan Discharge Patient Disposition: er 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 enoxaparin 30 mg/0.3 mL Syringe 30 mg subcut Q24H 42 Days Qty: 12.6 0RF Rx Instructions: bun cr: 50/2.61 Continued glipizide 5 mg tablet extended release 24hr 5 mg PO DAILY 90 Days Qty: 90 1RF lisinopril 10 mg tablet 10 mg PO DAILY Qty: 90 2RF simvastatin 20 mg tablet 20 mg PO BEDTIME Qty: 90 2RF ferrous sulfate 325 mg (65 mg iron) tablet 325 mg PO BID 90 Days Qty: 180 1RF gabapentin 300 mg capsule 300 mg PO BEDTIME Qty: 90 1RF (DME) walker Misc See Rx Instructions .MEDSUPPLY Qty: 1 0RF Rx Instructions: Folding Front wheeled walker pioglitazone 15 mg tablet 15 mg PO DAILY 30 Days Qty: 30 3RF albuterol sulfate 90 mcg/actuation HFA aerosol inhaler 2 puff inhalation Q6H PRN (Reason: Wheezing) Discharge Orders: Discharge Order (Routine); Ordered 09/30/21 Ordered By: Nimo Rivas Diet: regular diet Activity on Discharge: Use cane or walker Stand Alone Forms: Patient Portal Discharge page Care Plan Goals: Restore function of joint Health Concerns: none Plan of Treatment: Physical Therapy Pain management DVT prophylaxis Assessment: Physical Therapy for Total knee arthroplasty: WBAT, gait training, ROM 0-12, quad strength Limit stair climbing No showering, no tub bath-keep dressing clean, dry and intact No driving x6 weeks Continue Lovenox once a day x 6 weeks [place] up [place] [facility] [place] [place]: --you will also have your first out patient PT eval on the day of your post op appt-so please plan on being in the office that day for an extended period of time.
[2021-09-30] MEDS: Celecoxib 200 MG CAPSULE PO (08:38)
[2021-09-30] MEDS: lisinopriL 10 MG TABLET PO (08:38)
[2021-09-30] MEDS: Ferrous Sulfate 324 MG TABLET.DR PO (08:38)
[2021-09-30] MEDS: Docusate Sodium 100 MG CAPSULE PO (08:39)
--- NOTE | 2021-09-30 08:52 | MHC.CM.PN ---
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 PT REPORTS HE USES A CANE AT [facility] AND NO OTHER DME PT HAS A HCP ON FILE AND HIS PCP IS MASSIMO JOSE PT IS COVID-19 VACCINATED PT WILL DC TO [facility] TODAY AT 1300 HOURS VIA ACTION BLS Original Note: PT CLEARED TO DC TO STR TODAY MESSAGE SENT TO [facility] INFORMING THEM OF PENDING DC AWAITING RESPONSE TO COORDINATE DC TIME
[2021-09-30 11:00] VITALS: BP 148/81; PULSE 78; RESP 16; TEMP 36.9; O2SAT 97
[2021-09-30 11:34] LABS: Glucose, Whole Blood 157 mg/dL (60-115)
[2021-09-30] MEDS: Enoxaparin Sodium 30 MG/0.3 ML SYRINGE SUBCUT (12:12)
[2021-09-30] MEDS: Insulin Lispro 100 UNIT/ML 3 ML VIAL SUBCUT (12:12)
== END 2021-09-30 13:28 | disposition skilled nursing facility (03) | DRG 470 ==
LOC: HO.EDOVER 16:39 → HO.S3 16:40
PROVIDERS: Anesthesiology; Physician Assistant; Admitting Provider Orthopaedic Surgery; PCP Nurse Practitioner Family; Visit Provider Orthopaedic Surgery
PROC: 0SRC0J9 Replacement of Right Knee Joint with Synthetic Substitute, Cemented, Open Approach (ICD-10-PCS; CPT 27447; principal; 2021-09-28 11:30)
DX: M17.11 Unilateral primary osteoarthritis, right knee (principal); N18.4 Chronic kidney disease, stage 4 (severe); I12.9 Hypertensive chronic kidney disease with stage 1 through stage 4 chronic kidney disease, or unspecified chronic kidney disease; E11.22 Type 2 diabetes mellitus with diabetic chronic kidney disease; J44.9 Chronic obstructive pulmonary disease, unspecified; Z98.41 Cataract extraction status, right eye; Z20.822 Contact with and (suspected) exposure to COVID-19; Z96.652 Presence of left artificial knee joint; Z87.891 Personal history of nicotine dependence; Z79.84 Long term (current) use of oral hypoglycemic drugs; Z79.899 Other long term (current) drug therapy
CPT/HCPCS: 36415; 73560; 80048; 80051; 82565; 82947; 85014; 85018; 85025; 85610; 86850; 86900; 86901; 87635; 87640; 87641; 88305; 88311; 93005; 97110; 97116; 97162; 97530; C1713; C1758; C1776; J0690; J1170; J1650; J2250; J2370; J2795; J3010

== ENCOUNTER 2021-10-19 10:51 | Outpatient (REF) | payer MEDICARE, SELFPAY ==
[2021-10-19 14:09] LABS: Anion Gap 13 (12-20); Carbon Dioxide 19 mmol/L (22-29); Chloride 108 mmol/L (96-108); Potassium 4.9 mmol/L (3.3-5.1); Sodium 135 mmol/L (135-145)
== END 2021-10-19 10:52 | disposition home or self-care (01) ==
LOC: HO.HMGCLDS 10:51
PROVIDERS: Visit Provider Nurse Practitioner Family
DX: E87.5 Hyperkalemia (principal)
CPT/HCPCS: 36415; 80051

== ENCOUNTER → 2021-12-02 14:10 | Outpatient (BNVA) | payer MEDICARE, SELFPAY | PROVIDERS: PCP Nurse Practitioner Family; Visit Provider Physician Assistant | DX: M17.11 Unilateral primary osteoarthritis, right knee (principal); Z96.651 Presence of right artificial knee joint | CPT/HCPCS: 99212 ==

== ENCOUNTER 2021-12-13 07:48 | Outpatient (REF) | payer MEDICARE, SELFPAY ==
[2021-12-13 11:19] LABS: MANUAL DIFF FLAG NO
[2021-12-13 11:29] LABS: Basophils Absolute Auto 0.1 X10*3/uL (0.0-0.2); Basophils Percent Auto 0.8 % (0-2); Eosinophils Absolute Auto 1.3 X10*3/uL (0.0-0.4); Eosinophils Percent Auto 14.8 % (0-4); Hematocrit 32.8 % (42.0-52.0); Hemoglobin 9.7 g/dl (14.0-18.0); Imm Gran Abs Auto 0.02 X10*3/uL (0.00-0.03); Imm Gran Pct Auto 0.2 % (0.0-0.4); Lymphocytes Absolute Auto 2.2 X10*3/uL (1.2-4.9); Lymphocytes Percent Auto 24.3 % (20-40); Mean Corpuscular HGB Conc 29.6 g/dl (31.0-36.0); Mean Corpuscular Hemoglobin 25.2 pg (27.0-33.0); Mean Corpuscular Volume 85.2 fL (80.0-98.0); Mean Platelet Volume 10.5 fL (9.4-12.4); Monocytes Absolute Auto 0.9 X10*3/uL (0.1-1.2); Monocytes Percent Auto 10.1 % (2-11); Neutrophils Absolute Auto 4.4 x10*3/uL (2.0-8.3); Neutrophils Percent Auto 49.8 % (45-73); Platelet Count 259 X10*3/uL (160-400); Red Blood Count 3.85 X10*6/uL (4.60-5.80); Red Cell Distribution Width 15.4 % (11.0-16.0); White Blood Count 8.8 X10*3/uL (4.8-10.8)
[2021-12-13 11:35] LABS: Appearance Urine Clear; Color Urine Yellow; Glucose Urine UA Negative (Negative); Leukocyte Esterase Urine Negative (Negative); Nitrite Urine Negative (Negative); Urine Blood Trace (Negative); Urine Ketones Negative (Negative); Urine Protein 100 (2+) mg/dL (Neg-Trace)
[2021-12-13 11:38] LABS: Bacteria Urine None Seen (None Seen); Hyaline Casts Urine 0-2 /LPF (0-2); RBC Urine 0-2 /HPF (0-2); Squamous Epithelial Cell Urine 0-2 /HPF (0-2); WBC Urine 0-5 /HPF (0-5)
[2021-12-13 12:05] LABS: Anion Gap 14 (12-20); Blood Urea Nitrogen 45 mg/dL (9-16); Calcium 8.9 mg/dL (8.4-10.2); Carbon Dioxide 22 mmol/L (22-29); Chloride 110 mmol/L (96-108); Estimated Glomerular Filt Rate 25; Iron 45 mcg/dL (45-160); Percent Iron Saturation 19 % (15-50); Potassium 4.8 mmol/L (3.3-5.1); Sodium 141 mmol/L (135-145); Total Iron Binding Capacity 243 mcg/dL (228-428); Unsaturated Iron Binding 198 ug/dL
[2021-12-13 12:09] LABS: Ferritin 221 ng/mL (20-250)
[2021-12-13 12:30] LABS: Creatinine Urine 18.54 mg/dL; Total Protein Urine Random 89 mg/dL (<12)
== END 2021-12-13 07:49 | disposition home or self-care (01) ==
LOC: HO.HMGCLDS 07:48
PROVIDERS: Absent Provider Internal Medicine Nephrology; PCP Nurse Practitioner Family; Visit Provider Nurse Practitioner Family
DX: N25.0 Renal osteodystrophy (principal); E11.21 Type 2 diabetes mellitus with diabetic nephropathy; E11.22 Type 2 diabetes mellitus with diabetic chronic kidney disease; N18.4 Chronic kidney disease, stage 4 (severe)
CPT/HCPCS: 36415; 80051; 81001; 82043; 82310; 82565; 82728; 83540; 84156; 84520; 85025

== ENCOUNTER → 2021-12-30 15:47 | Outpatient (BNVA) | payer MEDICARE, SELFPAY | PROVIDERS: PCP Nurse Practitioner Family; Visit Provider Internal Medicine | DX: J44.9 Chronic obstructive pulmonary disease, unspecified (principal); J98.4 Other disorders of lung; R06.00 Dyspnea, unspecified; D64.9 Anemia, unspecified | CPT/HCPCS: 99212 ==

== ENCOUNTER → 2022-01-14 15:32 | Outpatient (BNVA) | payer MEDICARE, OTHER, SELFPAY | PROVIDERS: PCP Nurse Practitioner Family; Visit Provider Physician Assistant | DX: M17.11 Unilateral primary osteoarthritis, right knee (principal) | CPT/HCPCS: 99212 ==

== ENCOUNTER 2022-01-15 10:32 | Outpatient (REF) | payer MEDICARE, SELFPAY ==
[2022-01-15 11:21] LABS: Binax Internal Control QC Valid; Binax Now Covid-19 Ag Negative (Negative); Binax Performed by: HO.BONILM
== END 2022-01-15 10:33 | disposition home or self-care (01) ==
LOC: HO.HMGCLDS 10:32
PROVIDERS: PCP Nurse Practitioner Family; Visit Provider Physician Assistant
DX: Z20.822 Contact with and (suspected) exposure to COVID-19 (principal); J40 Bronchitis, not specified as acute or chronic
CPT/HCPCS: 87811; C9803

== ENCOUNTER → 2023-12-28 14:23 | Outpatient (RCR) | payer MEDICARE, OTHER, SELFPAY ==
[2020-06-22 14:04] VITALS: BP 147/67; PULSE 88; RESP 12; TEMP 37.1; O2SAT 96; BMI 32.1
[2020-06-22 14:07] LABS: MANUAL DIFF FLAG NO
[2020-06-22 14:12] LABS: Basophils Percent Auto 0.3 % (0-2); Eosinophils Absolute Auto 0.4 X10*3/uL (0.0-0.4); Eosinophils Percent Auto 4.7 % (0-4); Hematocrit 31.9 % (42-52); Hemoglobin 9.8 g/dl (14.0-18.0); Imm Gran Abs Auto 0.08 X10*3/uL (0.00-0.03); Imm Gran Pct Auto 0.9 % (0.0-0.4); Lymphocytes Absolute Auto 2.1 X10*3/uL (1.2-4.9); Lymphocytes Percent Auto 22.5 % (20-40); Mean Corpuscular HGB Conc 30.7 g/dl (31.0-36.0); Mean Corpuscular Hemoglobin 25.5 pg (27.0-33.0); Mean Corpuscular Volume 82.9 fL (80-98); Mean Platelet Volume 10.9 fL (9.4-12.4); Monocytes Absolute Auto 1.2 X10*3/uL (0.1-1.2); Monocytes Percent Auto 12.5 % (2-11); Neutrophils Absolute Auto 5.4 X10*3/uL (2.0-8.3); Neutrophils Percent Auto 59.1 % (45-73); Platelet Count 328 X10*3/uL (160-400); Red Blood Count 3.85 X10*6/uL (4.60-5.80); Red Cell Distribution Width 14.4 % (11.0-16.0); White Blood Count 9.2 X10*3/uL (4.8-10.8)
[2020-06-22 14:42] LABS: Alanine Aminotransferase 18 U/L (0-40); Albumin Level 3.3 g/dL (3.5-5.0); Alkaline Phosphatase 133 U/L (39-117); Anion Gap 14 (12-20); Aspartate Amino Transferase 30 U/L (5-37); Bilirubin Total 0.3 mg/dL (0.0-1.0); Blood Urea Nitrogen 50 mg/dL (9-16); Calcium 8.5 mg/dL (8.4-10.2); Carbon Dioxide 25 mmol/L (22-29); Chloride 108 mmol/L (96-108); Creatinine Clr Calc Pharmacy 26.1; Estimated Glomerular Filt Rate 20; Glucose Random 203 mg/dL (60-115); Potassium 5.4 mmol/L (3.3-5.1); Sodium 142 mmol/L (135-145); Total Protein 6.7 g/dL (6.5-8.0)
--- NOTE | 2020-06-22 15:01 | MHC.HEMONCMA ---
Patient presents for a consult on lung nodule. History was reviewed, labs drawn and patient to follow up in a week.
[2020-06-22 15:02] LABS: Prostate Specific Antigen Scr 2.81 ng/mL (<0.05-4.0)
--- NOTE | 2020-06-22 16:22 | PM.HEMONCCN ---
Subjective - Subjective Chief complaint: Consult for adenocarcinoma of the lung. Patient: new to practice Consult date: 06/22/20 Requesting Physician: Louis. [facility] Summary: DIAGNOSIS: ADENO-CARCINOMA OF THE LUNG WITH ACINAR PATTERN. HPI - Consult Narrative Reason for consult: Consult for adenocarcinoma lung. Narrative: Andi Justin is a pleasant 69 year old gentleman, with a history of COPD. He has had a lung nodule that was being followed by imaging. On 06 February 2020, low-dose CT chest revealed: Enlarging suspicious looking 2.2 x 1.6 cm irregular marginated left lower lobe lesion. PET/CT would be helpful in further evaluation if percutaneous biopsy is not being contemplated. Old granulomatous disease. Mild mediastinal and hilar lymphadenopathy. 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 Lung-RADS category 4B: Suspicious. PET scan from 02/24 revealed: 1. A medial pleural-based left lower lobe there is no definite abnormal FDG activity suggesting a benign etiology. However because approximately 10% of pulmonary malignancies demonstrate no abnormal FDG activity, in addition this nodule has enlarged since less recent prior CT scans, if biopsy of this nodule is not obtained, followup with diagnostic CT scan in 3-6 months is recommended. 2. Several nonenlarged FDG avid mediastinal lymph nodes are present as described above, and these are nonspecific and may be inflammatory or malignant in etiology. 3. No additional abnormalities suspicious for metastatic or other malignant lesions are noted. CT chest from 06/03: Exam is limited due to respiratory motion artifact however there appears to be continued slight interval increase in size in the left lower lobe nodule compared to most recent exam January 2020. Paraseptal emphysema and question mild interstitial disease at the lung bases. Enlarged heart. Diffuse increased sclerosis of the bones questionable for metabolic bone disease. On June 16 he underwent: Left lower lobe lung wedge resection. Frozen section diagnosis: Adenocarcinoma, similar to the tumor in lymph node. Margin positive for tumor. Frozen section from re-excision of the margin: New margin positive for tumor in lymphatic vessels and lymph node. The final pathology is still pending. ROS: He tells me his energy level is rather low. His sleep times are messed up. Sometimes if he goes to bed at 12 he wakes up at 05:00. If he sleeps earlier than he wakes up at 2. He denies fever nor chills. His appetite is not that great lately. He has lost weight. HEENT: No headache no dizziness. CVS: He denies any chest pain however he does get short of breath especially when he tries to lay down. Pulmonary: He has a cough. He brings up sputum a couple of times a day which is yellowish. GI: Denies abdominal pain nausea vomiting heartburn indigestion. Bowels are working without any gross blood in it. Appetite is poor. Weight is down. : He has increased frequency of micturition. He goes 10 times a day. Musculoskeletal: He had left knee replacement. His right knee is bothering him now. 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 Psych: Denies depression. Derm: No skin rash nor pruritus. Family history: Several family members have diabetes. An uncle of stomach cancer. Social history: He is originally from [place]. 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 He came to [facility]. in 1993.. 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 He came to [place] in April of 2015 after skilled nursing. He is . Has 3 children. He smoked a pack-a-day quit 11/30/2019. Review of Systems - Constitutional Reports system reviewed and no additional complaints, except as documented, Reports fatigue, Reports weight loss - Eyes Reports system reviewed and no additional complaints, except as documented - ENT Reports system reviewed and no additional complaints, except as documented - Cardiovascular Reports system reviewed and no additional complaints, except as documented - Respiratory Reports no additional respiratory complaints, Reports cough, Reports dyspnea - Gastrointestinal Reports system reviewed and no additional complaints, except as documented - Genitourinary Genitourinary: Reports no additional male genitourinary complaints, Reports frequent nighttime urination - Musculoskeletal Reports system reviewed and no additional complaints, except as documented - Integumentary/Breasts Skin/Breast: Reports no additional skin complaints - Neurologic Reports system reviewed and no additional complaints, except as documented - Psychiatric Reports system reviewed and no additional complaints, except as documented - Endocrine Reports no additional endocrine complaints - Hematologic/Lymphatic Reports system reviewed and no additional complaints, except as documented - Allergic/Immunologic Reports system reviewed and no additional complaints, except as documented Oncology Screenings - ECOG Performance Status ECOG Performance Status: 0 [facility] Medical History: Medical History (Last Updated 07/02/20 @ 16:05 by Andi uMñoz MD) CKD (chronic kidney disease) COPD (chronic obstructive pulmonary disease) COPD (chronic obstructive pulmonary disease) Diabetes Dyspnea on exertion HTN (hypertension) Lung nodule Personal history of nicotine dependence Restrictive lung disease Functional capacity: independent ambulation Patient : No Family History: Family History (Last Reviewed 07/02/20 @ 15:37 by Andi Muñoz MD) Father No problems noted. Mother Diabetes mellitus Surgical History: Surgical History (Last Reviewed 07/02/20 @ 15:37 by Andi Muñoz MD) History of arthroplasty of left knee Onset Date: 01/12/16 History of left cataract surgery Hx of laparoscopy Social History: Social History (Last Reviewed 07/02/20 @ 15:37 by Andi Muñoz MD) Living Situation History: Household Members: Spouse Housing: House Alcohol History: Alcohol intake: never Tobacco History: Tobacco Type: Cigarette Smoking status: Former smoker Home Medications and Allergies Home Medications Medication Instructions Recorded Confirmed Type simvastatin 20 mg tablet 20 mg PO BEDTIME 03/13/20 07/03/20 History glipizide 5 mg tablet 5 mg PO DAILY 04/27/20 07/03/20 History lisinopril 5 mg tablet 10 mg PO DAILY tab 05/12/20 07/03/20 History Allergies Allergy/AdvReac Type Severity Reaction Status Date / Time No Known Allergies Allergy Verified 07/03/20 11:05 [No Known Allergies*] Physical Exam Vital signs: Vital Signs Temp 98.7 F 06/22/20 14:04 Pulse 88 06/22/20 14:04 Resp 12 06/22/20 14:04 BP 147/67 H 06/22/20 14:04 Pulse Ox 96 06/22/20 14:04 Intake & Output 06/21/20 06/22/20 06/22/20 18:59 06:59 18:59 Other: Weight 98.7 kg Weight in Grams 82256 Weight 98.7 kg - Constitutional Present: mild distress - Routine HEENT Exam Head: Present: normal inspection ENT: Present: mucous membranes moist - Routine Neck Exam Present: supple - Routine Abdominal Exam Present: soft, nontender - Routine Rectal Exam Patient deferred: digital exam - Routine Skin Exam Present: intact - Routine Neurological Exam Present: alert, oriented X3 - Detailed Neurological Exam: Coma Scale Eye Opening: Spontaneous (4) Verbal Response: Oriented (5) Motor Response: Obeys commands (6) [place] Coma Scale Total: 15 - Routine Psychiatric Exam Present: normal affect Hem/Onc Consult Result - Labs CBC & Chem 7: 06/22/20 14:01 06/22/20 14:01 Labs: Short CBC 06/22/20 Range/Units 14:01 WBC 9.2 (4.8-10.8) X10*3/uL Hgb 9.8 L (14.0-18.0) g/dl Hct 31.9 L (42-52) % Plt Count 328 (160-400) X10*3/uL BMP 06/22/20 14:01 Sodium 142 Potassium 5.4 H Chloride 108 Carbon Dioxide 25 BUN 50 H Creatinine 3.04 H Calcium 8.5 Liver Function 06/22/20 Range/Units 14:01 Total Bilirubin 0.3 (0.0-1.0) mg/dL AST 30 (5-37) U/L ALT 18 (0-40) U/L Alkaline Phosphatase 133 H (39-117) U/L Albumin 3.3 L (3.5-5.0) g/dL Assessment and Plan (1) Adenocarcinoma of lung, stage 3 Problem details: PATIENT IS BEING FOLLOWED BY DR. BERRY FOR ONCOLOGY, SHE IS COMPLETING THE STAGING WORKUP, I DISCUSSED WITH HER AND SHE EXPLAINED THAT BECAUSE OF HIS UNDERLYING KIDNEY DISEASE AGGRESSIVE CHEMOTHERAPY WILL NOT BE POSSIBLE. SHE HAS REFERRED HIM FOR RADIATION THERAPY. Status: Acute This is an unfortunate 69-year-old gentleman with history of smoking, who now has Non-small Cell Lung Carcinoma. Final pathology confirmed it. PLAN: To proceed with staging workup. I will arrange for a PET scan: Postsurgical changes from resection of a previously visualized left lower lobe pulmonary nodule are noted. Mildly to moderately intense FDG activity is associated with suture lines and a small amount of left pleural fluid in this region which likely represent post surgical inflammatory changes. Multiple stable appearing mediastinal lymph nodes are present, and these continue to show mild FDG activity which is not significantly changed from the prior 02/25/2020 PET/CT scan. These may be inflammatory or malignant in etiology. No additional abnormalities suspicious for other metastatic or malignant lesions are noted. Get MRI of the head. Will then decide about the treatment plan. If he has disease localized to the chest would consider combined modality therapy with radiation along with chemotherapy. Or proceed with upfront chemotherapy, followed by consolidative radiotherapy. I am rather concerned about his kidney function being elevated. Will need to adjust chemotherapy dose, accordingly. He will return in one week for a follow up visit. Thanks, CC: Dr. Myers. Dr. Powers. (2) Adenocarcinoma Status: Acute
--- NOTE | 2020-06-23 10:01 | MHC.HEMONCSW ---
[facility] PET ORDER/CLINICALS FAXED. THEY WILL CALL AND SCHEDULE PATIENT.
--- NOTE | 2020-06-25 12:58 | MHC.HEMONCMA ---
Referral request for Sandeep faxed to Eleonora at [facility]. She will fax date & time of appointment to me.
--- NOTE | 2020-06-30 10:51 | MHC.HEMONCMA ---
Patient was referred for radiation therapy at [facility] and was scheduled for 06/29/20. Notes have been requested to be faxed to Dr Mccoy.
[2020-07-02 14:20] VITALS: BP 98/43; PULSE 80; RESP 14; TEMP 37.3; O2SAT 97; BMI 32.4
--- NOTE | 2020-07-02 15:30 | MHC.HEMONCMA ---
Pt present to f/u on lung cancer. History reviewed, lab results were read from having them done at another facility and pt to return for chemo.
--- NOTE | 2020-07-02 16:39 | P.PNHO_ITS ---
Medical Summary - Medical Summary Date of Service: 07/02/20 Chief complaint: Follow-up for: Non-small cell Lung cancer. 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 Interval History Interval history: Andi Justin is a pleasant 69 year old gentleman, with a history of COPD. He has had a lung nodule that was being followed by imaging. On 06 February 2020, low-dose CT chest revealed: Enlarging suspicious looking 2.2 x 1.6 cm irregular marginated left lower lobe lesion. PET/CT would be helpful in further evaluation if percutaneous biopsy is not being contemplated. Old granulomatous disease. Mild mediastinal and hilar lymphadenopathy. 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 Lung-RADS category 4B: Suspicious. PET scan from 02/24 revealed: 1. A medial pleural-based left lower lobe there is no definite abnormal FDG activity suggesting a benign etiology. However because approximately 10% of pulmonary malignancies demonstrate no abnormal FDG activity, in addition this nodule has enlarged since less recent prior CT scans, if biopsy of this nodule is not obtained, followup with diagnostic CT scan in 3-6 months is recommended. 2. Several nonenlarged FDG avid mediastinal lymph nodes are present as described above, and these are nonspecific and may be inflammatory or malignant in etiology. 3. No additional abnormalities suspicious for metastatic or other malignant lesions are noted. CT chest from 06/03: Exam is limited due to respiratory motion artifact however there appears to be continued slight interval increase in size in the left lower lobe nodule compared to most recent exam January 2020. Paraseptal emphysema and question mild interstitial disease at the lung bases. Enlarged heart. Diffuse increased sclerosis of the bones questionable for metabolic bone disease. On June 16 he underwent: Left lower lobe lung wedge resection. Frozen section diagnosis: Adenocarcinoma, similar to the tumor in lymph node. Margin positive for tumor. Frozen section from re-excision of the margin: New margin positive for tumor in lymphatic vessels and lymph node. The final pathology is still pending. ROS: He tells me his energy level is rather low. His sleep times are messed up. Sometimes if he goes to bed at 12 he wakes up at 05:00. If he sleeps earlier than he wakes up at 2. He denies fever nor chills. His appetite is not that great lately. He has lost weight. HEENT: No headache no dizziness. CVS: He denies any chest pain however he does get short of breath especially when he tries to lay down. Pulmonary: He has a cough. He brings up sputum a couple of times a day which is yellowish. He has felt SOB especially on exertion. GI: Denies abdominal pain nausea vomiting heartburn indigestion. Bowels are working without any gross blood in it. Appetite is poor. Weight is down. : He has increased frequency of micturition. He goes 10 times a day. Musculoskeletal: He had left knee replacement. His right knee is bothering him now. 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 Psych: Denies depression. Derm: No skin rash nor pruritus. Family history: Several family members have diabetes. An uncle of stomach cancer. Social history: He is originally from [place]. 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 [place] 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 He came to [place] in April of 2015 after long-term. He is . Has 3 children. He smoked a pack-a-day quit 11/30/2019. Review of Systems - Constitutional Reports system reviewed and no additional complaints, except as documented, Reports weakness, Reports weight loss - Eyes Reports system reviewed and no additional complaints, except as documented - ENT Reports system reviewed and no additional complaints, except as documented - Cardiovascular Reports system reviewed and no additional complaints, except as documented, Reports shortness of breath - Respiratory Reports no additional respiratory complaints - Gastrointestinal Reports system reviewed and no additional complaints, except as documented - Genitourinary Genitourinary: Reports no additional male genitourinary complaints - Musculoskeletal Reports system reviewed and no additional complaints, except as documented - Integumentary/Breasts Skin/Breast: Reports no additional skin complaints - Neurologic Reports system reviewed and no additional complaints, except as documented - Psychiatric Reports system reviewed and no additional complaints, except as documented - Endocrine Reports no additional endocrine complaints - Hematologic/Lymphatic Reports system reviewed and no additional complaints, except as documented - Allergic/Immunologic Reports system reviewed and no additional complaints, except as documented PMF Medical History: Medical History (Last Updated 07/02/20 @ 16:05 by Andi Muñoz MD) CKD (chronic kidney disease) COPD (chronic obstructive pulmonary disease) COPD (chronic obstructive pulmonary disease) Diabetes Dyspnea on exertion HTN (hypertension) Lung nodule Personal history of nicotine dependence Restrictive lung disease Functional capacity: independent ambulation Patient : No Family History: Family History (Last Reviewed 07/02/20 @ 15:37 by Andi Muñoz MD) Father No problems noted. Mother Diabetes mellitus Surgical History: Surgical History (Last Reviewed 07/02/20 @ 15:37 by Andi Muñoz MD) History of arthroplasty of left knee Onset Date: 01/12/16 History of left cataract surgery Hx of laparoscopy Social History: Social History (Last Reviewed 07/02/20 @ 15:37 by Andi Muñoz MD) Living Situation History: Household Members: Spouse Housing: House Alcohol History: Alcohol intake: never Tobacco History: Tobacco Type: Cigarette Smoking status: Former smoker Home Medications and Allergies Home Medications Medication Instructions Recorded Confirmed Type simvastatin 20 mg tablet 20 mg PO BEDTIME 03/13/20 07/03/20 History glipizide 5 mg tablet 5 mg PO DAILY 04/27/20 07/03/20 History lisinopril 5 mg tablet 10 mg PO DAILY tab 05/12/20 07/03/20 History Allergies Allergy/AdvReac Type Severity Reaction Status Date / Time No Known Allergies Allergy Verified 07/03/20 11:05 [No Known Allergies*] Exam Vital signs: Vital Signs Temp 99.2 F 07/02/20 14:20 Pulse 80 07/02/20 14:20 Resp 14 07/02/20 14:20 BP 98/43 L 07/02/20 14:20 Pulse Ox 97 07/02/20 14:20 Intake & Output 07/01/20 07/02/20 07/02/20 18:59 06:59 18:59 Other: Weight 99.6 kg Weight in Grams 60990 Weight 99.6 kg Body Mass Index 32.4 - Constitutional Present: mild distress - Routine HEENT Exam Head: Present: normal inspection Eye: Present: normal appearance ENT: Present: mucous membranes moist - Routine Neck Exam Present: full ROM - Routine Respiratory Exam Present: CTAB - Routine Cardiovascular Exam Cardiovascular: Present: RRR, S1, S2 - Routine Abdominal Exam Present: soft, nontender - Routine Extremities Exam Present: nontender - Routine Back/Spine/Pelvis Exam Back/Spine: Present: full ROM - Routine Skin Exam Present: intact - Routine Neurological Exam Present: alert, oriented X3 - Detailed Neurological Exam: Coma Scale Eye Opening: Spontaneous (4) - Routine Psychiatric Exam Present: normal affect Data - Labs CBC & Chem 7: 07/07/20 14:36 07/07/20 14:36 Labs: 06/22/20 14:01 Carcinoembryonic Antigen Routine Complete Blood Count Auto Diff Routine Comprehensive Met. Panel Routine PSA [Prostate Specific Antigen Scr] Routine Laboratory Last Values WBC 9.2 X10*3/uL (4.8-10.8) 06/22/20 14: RBC 3.85 X10*6/uL (4.60-5.80) L 06/22/20 14:01 Hgb 9.8 g/dl (14.0-18.0) L 06/22/20 14: Hct 31.9 % (42-52) L 06/22/20 14: MCV 82.9 fL (80-98) 06/22/20 14:01 MCH 25.5 pg (27.0-33.0) L 06/22/20 14: MCHC 30.7 g/dl (31.0-36.0) L 06/22/20 14:01 RDW 14.4 % (11.0-16.0) 06/22/20 14:01 Plt Count 328 X10*3/uL (160-400) 06/22/20 14: MPV 10.9 fL (9.4-12.4) 06/22/20 14:01 Immature Gran % (Auto) 0.9 % (0.0-0.4) H 06/22/20 14: Neut % (Auto) 59.1 % (45-73) 06/22/20 14:01 Lymph % (Auto) 22.5 % (20-40) 06/22/20 14:01 [place] % (Auto) 12.5 % (2-11) H 06/22/20 14:01 Eos % (Auto) 4.7 % (0-4) H 06/22/20 14:01 Baso % (Auto) 0.3 % (0-2) 06/22/20 14:01 Lymph # (Auto) 2.1 X10*3/uL (1.2-4.9) 06/22/20 14:01 [place] # (Auto) 1.2 X10*3/uL (0.1-1.2) 06/22/20 14:01 Eos # (Auto) 0.4 X10*3/uL (0.0-0.4) 06/22/20 14:01 Baso # (Auto) 0.0 X10*3/uL (0.0-0.2) 06/22/20 14:01 Abs Immat Gran (auto) 0.08 X10*3/uL (0.00-0.03) H 06/22/20 14:01 Absolute Neuts (auto) 5.4 X10*3/uL (2.0-8.3) 06/22/20 14:01 Absolute Nucleated RBC 0.000 X10*3/uL (0.0-0.012) 06/22/20 14:01 Nucleated RBC % (auto) 0.0 /100WBC (0.0-0.2) 06/22/20 14:01 Sodium 142 mmol/L (135-145) 06/22/20 14:01 Potassium 5.4 mmol/L (3.3-5.1) H 06/22/20 14:01 Chloride 108 mmol/L (96-108) 06/22/20 14:01 Carbon Dioxide 25 mmol/L (22-29) 06/22/20 14:01 Anion Gap 14 (12-20) 06/22/20 14:01 BUN 50 mg/dL (9-16) H 06/22/20 14:01 Creatinine 3.04 mg/dL (0.5-1.4) H 06/22/20 14:01 Estim Creat Clear Calc 26.1 06/22/20 14:01 Estimated GFR 20 06/22/20 14:01 Random Glucose 203 mg/dL (60-115) H 06/22/20 14:01 Calcium 8.5 mg/dL (8.4-10.2) 06/22/20 14:01 Total Bilirubin 0.3 mg/dL (0.0-1.0) 06/22/20 14:01 AST 30 U/L (5-37) 06/22/20 14:01 ALT 18 U/L (0-40) 06/22/20 14:01 Alkaline Phosphatase 133 U/L (39-117) H 06/22/20 14:01 Total Protein 6.7 g/dL (6.5-8.0) 06/22/20 14:01 Albumin 3.3 g/dL (3.5-5.0) L 06/22/20 14:01 Carcinoembryonic Ag 5.40 ng/mL 06/22/20 14:01 PSA Screen 2.81 ng/mL (<0.05-4.0) 06/22/20 14:01 Progress Note: A/P (1) Adenocarcinoma of lung, stage 3 Problem details: PATIENT IS BEING FOLLOWED BY DR. BERRY FOR ONCOLOGY, SHE IS COMPLETING THE STAGING WORKUP, I DISCUSSED WITH HER AND SHE EXPLAINED THAT BECAUSE OF HIS UNDERLYING KIDNEY DISEASE AGGRESSIVE CHEMOTHERAPY WILL NOT BE POSSIBLE. SHE HAS REFERRED HIM FOR RADIATION THERAPY. Status: Acute Assessment and plan: This is an unfortunate 69-year-old gentleman with history of smoking, who now has non-small cell lung carcinoma. Final pathology is not available yet, hopefully by tomorrow. I proceeded with staging workup. His PET scan from 06/30: MRI of the head was done, however could not give contrast due to renal function. He had a tele visit with Dr. Girma Daniel, from [facility], yesterday. He is scheduled for Cat scan of chest for planning, on 07/08. I discussed the treatment plan with him. He has disease localized to the chest, my plan is to proceed with upfront chemotherapy, can use weekly Carbo/Paclitaxel, followed by Darvalumab. I am rather concerned about his kidney function being elevated. His Carbo dose with AUC of 2 would be around 110. Can then proceed with consolidative radiation therapy. He will return on Monday for chemotherapy teaching. Will then get started over the next week or so. Thank you, CC: Dr. Myers. Dr. Muñoz. Dr. Girma Daniel. - Time Spent With Patient Total time spent is greater than 50% in coordination of care (as documented) at patient's floor/unit and/or counseling patient: 25 - 35 minutes
--- NOTE | 2020-07-06 10:35 | MHC.HEMONCSW ---
PATIENT IS A 69 YEAR OLD RETIRED MALE. RESIDING WITH FAMILY DIAGNOSIS IS LUNG CANCER PLAN IS BOTH CHEMO AND RADIATION THERAPY. HE IS ACCOMPANIED BY DAUGHTER ANAM. EDUCATION, GUIDANCE AND SUPPORT PROVIDED.
[2020-07-07 13:18] VITALS: BP 149/66; PULSE 75; RESP 19; TEMP 36.7; O2SAT 99; BMI 34.2
--- NOTE | 2020-07-07 14:43 | MHC.HEMONC ---
Pt and his dtr here for chemo teach: weekly carbo/taxol and later Durvalumab. May have RT at some point ([place]). He states pain is controlled with Tylenol. Appetite is good. He will start treatment next Monday the . Labs were drawn. We reviewed common side effects of drugs and way(s) to treat. Also educated re: general side effects of chemotherapy. Pt signed consent. Pt also seen by Dr Mccoy.
[2020-07-07 14:45] LABS: MANUAL DIFF FLAG NO
[2020-07-07 14:55] LABS: Basophils Percent Auto 0.4 % (0-2); Eosinophils Absolute Auto 0.5 X10*3/uL (0.0-0.4); Eosinophils Percent Auto 5.1 % (0-4); Hematocrit 33.4 % (42-52); Hemoglobin 10.2 g/dl (14.0-18.0); Imm Gran Abs Auto 0.03 X10*3/uL (0.00-0.03); Imm Gran Pct Auto 0.3 % (0.0-0.4); Lymphocytes Absolute Auto 2.4 X10*3/uL (1.2-4.9); Lymphocytes Percent Auto 26.7 % (20-40); Mean Corpuscular HGB Conc 30.5 g/dl (31.0-36.0); Mean Corpuscular Hemoglobin 25.7 pg (27.0-33.0); Mean Corpuscular Volume 84.1 fL (80-98); Monocytes Absolute Auto 0.9 X10*3/uL (0.1-1.2); Monocytes Percent Auto 9.9 % (2-11); Neutrophils Absolute Auto 5.1 X10*3/uL (2.0-8.3); Neutrophils Percent Auto 57.6 % (45-73); Platelet Count 448 X10*3/uL (160-400); Red Blood Count 3.97 X10*6/uL (4.60-5.80); Red Cell Distribution Width 14.1 % (11.0-16.0); White Blood Count 8.9 X10*3/uL (4.8-10.8)
[2020-07-07 15:20] LABS: Alanine Aminotransferase 9 U/L (0-40); Albumin Level 3.6 g/dL (3.5-5.0); Alkaline Phosphatase 124 U/L (39-117); Anion Gap 12 (12-20); Aspartate Amino Transferase 11 U/L (5-37); Bilirubin Total 0.4 mg/dL (0.0-1.0); Blood Urea Nitrogen 41 mg/dL (9-16); Calcium 9.1 mg/dL (8.4-10.2); Carbon Dioxide 26 mmol/L (22-29); Chloride 108 mmol/L (96-108); Estimated Glomerular Filt Rate 24; Gamma Glutamyl Transpeptidase 24 U/L (11-51); Glucose Random 151 mg/dL (60-115); Iron 29 mcg/dL (45-160); Percent Iron Saturation 10 % (15-50); Potassium 5.6 mmol/L (3.3-5.1); Sodium 140 mmol/L (135-145); Total Iron Binding Capacity 284 mcg/dL (228-428); Total Protein 7.4 g/dL (6.5-8.0); Unsaturated Iron Binding 255 ug/dL
--- NOTE | 2020-07-07 15:33 | MHC.HEMONCSW ---
PATIENT AND DAUGHTER HERE FOR CHEMO TEACH, TO BEGIN NEXT WEEK. MET WITH THEM BOTH. REPORTS COPING FAIRLY WELL. EDUCATION AND SUPPORT PROVIDED.
[2020-07-07 15:41] LABS: Ferritin 131 ng/mL (20-250)
[2020-07-07 15:51] LABS: Folate 6.2 ng/mL (> or = 4.0); Vitamin B12 300 pg/mL (200-900)
--- NOTE | 2020-07-14 16:25 | HO.HEMONCPA ---
PA is not required for pt's chemo treatment due to having Medicare as Primary insurance
[2020-07-17 11:08] LABS: MANUAL DIFF FLAG NO
[2020-07-17 11:21] LABS: Basophils Percent Auto 0.4 % (0-2); Eosinophils Absolute Auto 0.5 X10*3/uL (0.0-0.4); Eosinophils Percent Auto 6.5 % (0-4); Hemoglobin 9.4 g/dl (14.0-18.0); Imm Gran Abs Auto 0.02 X10*3/uL (0.00-0.03); Imm Gran Pct Auto 0.3 % (0.0-0.4); Mean Corpuscular HGB Conc 30.3 g/dl (31.0-36.0); Mean Corpuscular Hemoglobin 25.3 pg (27.0-33.0); Mean Corpuscular Volume 83.3 fL (80-98); Mean Platelet Volume 11.1 fL (9.4-12.4); Monocytes Absolute Auto 0.9 X10*3/uL (0.1-1.2); Monocytes Percent Auto 11.7 % (2-11); Neutrophils Percent Auto 54.1 % (45-73); Platelet Count 272 X10*3/uL (160-400); Red Blood Count 3.72 X10*6/uL (4.60-5.80); Red Cell Distribution Width 14.6 % (11.0-16.0); White Blood Count 7.4 X10*3/uL (4.8-10.8)
[2020-07-17 11:28] VITALS: BP 135/75; PULSE 66; RESP 18; TEMP 36.3; O2SAT 97; BMI 34.3
[2020-07-17 11:43] LABS: Alanine Aminotransferase 11 U/L (0-40); Albumin Level 3.3 g/dL (3.5-5.0); Alkaline Phosphatase 117 U/L (39-117); Anion Gap 15 (12-20); Aspartate Amino Transferase 12 U/L (5-37); Bilirubin Total 0.2 mg/dL (0.0-1.0); Blood Urea Nitrogen 52 mg/dL (9-16); Calcium 8.4 mg/dL (8.4-10.2); Carbon Dioxide 19 mmol/L (22-29); Chloride 110 mmol/L (96-108); Estimated Glomerular Filt Rate 21; Glucose Random 156 mg/dL (60-115); Potassium 4.9 mmol/L (3.3-5.1); Sodium 139 mmol/L (135-145); Total Protein 6.7 g/dL (6.5-8.0)
--- NOTE | 2020-07-17 12:04 | HE.PHANOTE ---
PATIENT'S SCr HAS INCREASE; RECALCULATED CARBOPLATIN DOSE TO BE 160MG USING ADJUSTED BODY WEIGHT. [facility] NOT USING AdjBW FOR CALCULATION SO [facility] MODIFIED ORDER PER MD.
[2020-07-17] MEDS: Famotidine/PF 20 MG/2 ML VIAL IVPUSH (12:16)
[2020-07-17] MEDS: ondansetron HCL/NS 16 MG/50 ML PIGGYBACK 200 MG IV (12:17)
[2020-07-17] MEDS: dexAMETHasone sod phosphate/NS 12 MG/50 ML PIGGYBACK 200 MG IV (12:37)
[2020-07-17] MEDS: diphenhydrAMINE HCL 50 MG/ML VIAL 25 MG IVPUSH (13:00)
--- NOTE | 2020-07-17 13:37 | P.PNHO_ITS ---
Medical Summary - Medical Summary Date of Service: 07/17/20 Chief complaint: Follow-up for: Lung cancer. 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 CURRENT THERAPY: Here to start chemotherapy, with low-dose weekly carbo Taxol. Interval History Interval history: Andi Justin is a pleasant 69 year old gentleman, here for a follow-up visit and for his 1st cycle of chemotherapy. ROS: He tells me his energy level is rather low. His sleep times are messed up. Sometimes if he goes to bed at 12 he wakes up at 05:00. If he sleeps earlier than he wakes up at 2. He denies fever nor chills. His appetite is not that great lately. He has lost weight. HEENT: No headache no dizziness. CVS: He denies any chest pain however he does get short of breath especially when he tries to lay down. Pulmonary: He has a cough. He brings up sputum a couple of times a day which is yellowish. He has felt SOB especially on exertion. GI: Denies abdominal pain nausea vomiting heartburn indigestion. Bowels are working without any gross blood in it. Appetite is poor. Weight is down. : He has increased frequency of micturition. He goes 10 times a day. Musculoskeletal: He had left knee replacement. His right knee is bothering him now. [employer]: No focal deficits. Psych: Denies depression. Derm: No skin rash nor pruritus. Previous history: with a history of COPD. He has had a lung nodule that was being followed by imaging. On 06 February 2020, low-dose CT chest revealed: Enlarging suspicious looking 2.2 x 1.6 cm irregular marginated left lower lobe lesion. PET/CT would be helpful in further evaluation if percutaneous biopsy is not being contemplated. Old granulomatous disease. Mild mediastinal and hilar lymphadenopathy. 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 Lung-RADS category 4B: Suspicious. PET scan from 02/24 revealed: 1. A medial pleural-based left lower lobe there is no definite abnormal FDG activity suggesting a benign etiology. However because approximately 10% of pulmonary malignancies demonstrate no abnormal FDG activity, in addition this nodule has enlarged since less recent prior CT scans, if biopsy of this nodule is not obtained, followup with diagnostic CT scan in 3-6 months is recommended. 2. Several nonenlarged FDG avid mediastinal lymph nodes are present as described above, and these are nonspecific and may be inflammatory or malignant in etiology. 3. No additional abnormalities suspicious for metastatic or other malignant lesions are noted. CT chest from 06/03: Exam is limited due to respiratory motion artifact however there appears to be continued slight interval increase in size in the left lower lobe nodule compared to most recent exam January 2020. Paraseptal emphysema and question mild interstitial disease at the lung bases. Enlarged heart. Diffuse increased sclerosis of the bones questionable for metabolic bone disease. On June 16 he underwent: Left lower lobe lung wedge resection. Frozen section diagnosis: Adenocarcinoma, similar to the tumor in lymph node. Margin positive for tumor. Frozen section from re-excision of the margin: New margin positive for tumor in lymphatic vessels and lymph node. Family history: Several family members have diabetes. An uncle of stomach cancer. Social history: He is originally from [place]. 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 He came to .. in 1993.. 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 He came to [place] in April of 2015 after detention. He is . Has 3 children. He smoked a pack-a-day quit 11/30/2019. Review of Systems - Constitutional Reports system reviewed and no additional complaints, except as documented, Reports lack of energy, Reports malaise - Eyes Reports system reviewed and no additional complaints, except as documented - ENT Reports system reviewed and no additional complaints, except as documented - Cardiovascular Reports system reviewed and no additional complaints, except as documented - Respiratory Reports no additional respiratory complaints, Reports dyspnea on exertion - Gastrointestinal Reports system reviewed and no additional complaints, except as documented - Genitourinary Genitourinary: Reports no additional male genitourinary complaints - Musculoskeletal Reports system reviewed and no additional complaints, except as documented - Integumentary/Breasts Skin/Breast: Reports no additional skin complaints - Neurologic Reports system reviewed and no additional complaints, except as documented, Reports weakness - Psychiatric Reports system reviewed and no additional complaints, except as documented - Endocrine Reports no additional endocrine complaints - Hematologic/Lymphatic Reports system reviewed and no additional complaints, except as documented - Allergic/Immunologic Reports system reviewed and no additional complaints, except as documented [facility] Medical History: Medical History (Last Reviewed 07/23/20 @ 11:18 by [facility]) CKD (chronic kidney disease) COPD (chronic obstructive pulmonary disease) COPD (chronic obstructive pulmonary disease) Diabetes Dyspnea on exertion HTN (hypertension) Lung nodule Personal history of nicotine dependence Restrictive lung disease Functional capacity: independent ambulation Patient : No Family History: Family History (Last Reviewed 07/23/20 @ 11:18 by Harish Powers [facility]) Father No problems noted. Mother Diabetes mellitus Surgical History: Surgical History (Last Updated 07/20/20 @ 06:56 by Harish Powers [facility]) H/O pneumonectomy History of arthroplasty of left knee Onset Date: 01/12/16 History of left cataract surgery Hx of laparoscopy Social History: Social History (Last Reviewed 07/23/20 @ 11:18 by Harish Powers [facility]) Living Situation History: Household Members: Spouse Housing: House Are you a primary nurse behavioral health care to a significant other at home: Yes Do you presently have visiting nurse or other home services: Yes Do you presently have visiting nurse or other home services comment: cleaning Alcohol History: Alcohol intake: never Tobacco History: Smoking Status: Former smoker Tobacco Type: Cigarette Smoking Quit Date: 12/12/19 Substance Use History: Use of substances other than those prescribed or required for medical reasons : No Nutrition Assessment: Patient : No Smoking status: Former smoker Oncology Screenings - ECOG Performance Status ECOG Performance Status: 1 Home Medications and Allergies Current Medications: Current Medications Generic Name Dose Route Start Last Admin Trade Name Freq PRN Reason Stop Dose Admin Diphenhydramine HCl 25 mg 07/17/20 00:00 07/17/20 13:00 Diphenhydramine Hcl 50 Mg/Ml Vial IVPUSH 07/17/20 23:59 25 mg ONCE ROB Administration Famotidine 20 mg 07/17/20 00:00 07/17/20 12:16 Famotidine/Pf 20 Mg/2 Ml Vial IVPUSH 07/17/20 23:59 20 mg ONCE ROB Administration Heparin Sodium (Porcine) 500 unit 07/17/20 00:00 Heparin Sodium,Porcine Flush 500 Unit/5 Ml Syringe IVFLUSH 07/17/20 23:59 ONCE ROB Dexamethasone Sodium Phosphate 12 mg in 50 mls @ 200 mls/hr 07/17/20 00:00 07/17/20 12:52 Decadron IV 07/17/20 23:59 Infused ONCE ROB Infusion Ondansetron HCl 16 mg in 50 mls @ 200 mls/hr 07/17/20 00:00 07/17/20 12:35 Zofran IV 07/17/20 23:59 Infused ONCE ROB Infusion Carboplatin 160 mg/ Sodium 266 mls @ 532 mls/hr 07/17/20 00:00 Chloride IV 07/17/20 23:59 ONCE ROB Paclitaxel 168 mg/ Sodium 278 mls @ 278 mls/hr 07/17/20 00:00 07/17/20 13:26 Chloride IV 07/17/20 23:59 278 mls/hr ONCE ROB Administration Home Medications Medication Instructions Recorded Confirmed Type sodium polystyrene sulfonate PO 07/23/20 07/23/20 History Allergies Allergy/AdvReac Type Severity Reaction Status Date / Time No Known Allergies Allergy Verified 07/23/20 11:18 [No Known Allergies*] Exam Vital signs: Vital Signs Temp 97.4 F 07/17/20 11:28 Pulse 66 07/17/20 11:28 Resp 18 07/17/20 11:28 BP 135/75 07/17/20 11:28 Pulse Ox 97 07/17/20 11:28 Intake & Output 07/16/20 07/17/20 07/17/20 18:59 06:59 18:59 Intake Total 100 / 100 Balance 100 / 100 Intake: Intake, IV Amount 100 / 100 dexAMETHasone sod phosphate/NS 50 / 50 12 mg In 50 ml @ 200 mls/hr IV ONCE ROB Rx#:[id number] ondansetron HCL/NS 16 mg In 50 50 / 50 ml @ 200 mls/hr IV ONCE ROB Rx# :[id number] Other: Weight 105.6 kg Weight in Grams 179508 Weight 105.6 kg Body Mass Index 34.3 - Constitutional Present: mild distress - Routine HEENT Exam Head: Present: normal inspection Eye: Present: normal appearance ENT: Present: mucous membranes moist - Routine Neck Exam Present: full ROM - Routine Respiratory Exam Present: CTAB - Routine Cardiovascular Exam Cardiovascular: Present: RRR, S1, S2 - Routine Abdominal Exam Present: soft, nontender - Routine Extremities Exam Present: nontender - Routine Back/Spine/Pelvis Exam Back/Spine: Present: full ROM - Routine Skin Exam Present: intact - Routine Neurological Exam Present: alert, oriented X3 - Detailed Neurological Exam: Coma Scale Eye Opening: Spontaneous (4) - Routine Psychiatric Exam Present: normal affect Data - Labs CBC & Chem 7: 07/24/20 11:25 07/24/20 11:25 Labs: 06/22/20 14:01 Carcinoembryonic Antigen Routine Complete Blood Count Auto Diff Routine Comprehensive Met. Panel Routine PSA [Prostate Specific Antigen Scr] Routine Laboratory Last Values WBC 9.2 X10*3/uL (4.8-10.8) 06/22/20 14: RBC 3.85 X10*6/uL (4.60-5.80) L 06/22/20 14:01 Hgb 9.8 g/dl (14.0-18.0) L 06/22/20 14: Hct 31.9 % (42-52) L 06/22/20 14: MCV 82.9 fL (80-98) 06/22/20 14:01 MCH 25.5 pg (27.0-33.0) L 06/22/20 14: MCHC 30.7 g/dl (31.0-36.0) L 06/22/20 14:01 RDW 14.4 % (11.0-16.0) 06/22/20 14:01 Plt Count 328 X10*3/uL (160-400) 06/22/20 14:01 MPV 10.9 fL (9.4-12.4) 06/22/20 14:01 Immature Gran % (Auto) 0.9 % (0.0-0.4) H 06/22/20 14: Neut % (Auto) 59.1 % (45-73) 06/22/20 14:01 Lymph % (Auto) 22.5 % (20-40) 06/22/20 14:01 [place] % (Auto) 12.5 % (2-11) H 06/22/20 14:01 Eos % (Auto) 4.7 % (0-4) H 06/22/20 14:01 Baso % (Auto) 0.3 % (0-2) 06/22/20 14:01 Lymph # (Auto) 2.1 X10*3/uL (1.2-4.9) 06/22/20 14:01 [place] # (Auto) 1.2 X10*3/uL (0.1-1.2) 06/22/20 14:01 Eos # (Auto) 0.4 X10*3/uL (0.0-0.4) 06/22/20 14:01 Baso # (Auto) 0.0 X10*3/uL (0.0-0.2) 06/22/20 14:01 Abs Immat Gran (auto) 0.08 X10*3/uL (0.00-0.03) H 06/22/20 14:01 Absolute Neuts (auto) 5.4 X10*3/uL (2.0-8.3) 06/22/20 14:01 Absolute Nucleated RBC 0.000 X10*3/uL (0.0-0.012) 06/22/20 14:01 Nucleated RBC % (auto) 0.0 /100WBC (0.0-0.2) 06/22/20 14:01 Sodium 142 mmol/L (135-145) 06/22/20 14:01 Potassium 5.4 mmol/L (3.3-5.1) H 06/22/20 14:01 Chloride 108 mmol/L (96-108) 06/22/20 14:01 Carbon Dioxide 25 mmol/L (22-29) 06/22/20 14:01 Anion Gap 14 (12-20) 06/22/20 14:01 BUN 50 mg/dL (9-16) H 06/22/20 14:01 Creatinine 3.04 mg/dL (0.5-1.4) H 06/22/20 14:01 Estim Creat Clear Calc 26.1 06/22/20 14:01 Estimated GFR 20 06/22/20 14:01 Random Glucose 203 mg/dL (60-115) H 06/22/20 14:01 Calcium 8.5 mg/dL (8.4-10.2) 06/22/20 14:01 Total Bilirubin 0.3 mg/dL (0.0-1.0) 06/22/20 14:01 AST 30 U/L (5-37) 06/22/20 14:01 ALT 18 U/L (0-40) 06/22/20 14:01 Alkaline Phosphatase 133 U/L (39-117) H 06/22/20 14:01 Total Protein 6.7 g/dL (6.5-8.0) 06/22/20 14:01 Albumin 3.3 g/dL (3.5-5.0) L 06/22/20 14:01 Carcinoembryonic Ag 5.40 ng/mL 06/22/20 14:01 PSA Screen 2.81 ng/mL (<0.05-4.0) 06/22/20 14:01 Progress Note: A/P (1) Adenocarcinoma of lung, stage 3 Problem details: PATIENT IS BEING FOLLOWED BY DR. BERRY FOR ONCOLOGY, SHE IS COMPLETING THE STAGING WORKUP, I DISCUSSED WITH HER AND SHE EXPLAINED THAT BECAUSE OF HIS UNDERLYING KIDNEY DISEASE AGGRESSIVE CHEMOTHERAPY WILL NOT BE POSSIBLE. SHE HAS REFERRED HIM FOR RADIATION THERAPY. Status: Acute Assessment and plan: This is an unfortunate 69-year-old gentleman with history of smoking, who now has non-small cell lung carcinoma. Final pathology is not available yet, hopefully by tomorrow. I proceeded with staging workup. His PET scan from 06/30: MRI of the head was done, however could not give contrast due to renal function. He had a tele visit with Dr. Girma Daniel, from [facility]. He is scheduled for Cat scan of chest for planning, on 07/08. I discussed the treatment plan with him. PLAN: He has disease localized to the chest, my plan is to proceed with upfront chemotherapy, can use weekly Carbo/Paclitaxel, followed by Darvalumab. I am rather concerned about his kidney function being elevated. His Carbo dose with AUC of 2 would be around 110. Can then proceed with consolidative radiation therapy. He underwent chemotherapy teaching on Monday. He is here to get started on his treatment. Hopefully he will tolerated reasonably well. Will continue to monitor his labs including kidney function. Thank you, CC: Dr. Myers. Dr. Muñoz. Dr. Girma Daniel. - Time Spent With Patient Total time spent is greater than 50% in coordination of care (as documented) at patient's floor/unit and/or counseling patient: 25 - 35 minutes
[2020-07-17 15:15] VITALS: BP 150/86; PULSE 66; TEMP 36.6; O2SAT 98
--- NOTE | 2020-07-17 15:43 | MHC.HEMONC ---
Pt here for C1 D1 of treatment. Offers no c/o at this time. Labs drawn and reviewed. IV started left hand. Chemo treatment done and pt tolerated very well. Dr Mccoy in to see pt in follow up. Scheduled to return in 1 week for next treatment.
[2020-07-24 10:52] VITALS: BMI 34.0
[2020-07-24 10:53] VITALS: BP 98/55; PULSE 89; RESP 18; TEMP 35.8; O2SAT 97
[2020-07-24 11:23] VITALS: BP 144/84; PULSE 75; RESP 18; TEMP 36.2; O2SAT 97
[2020-07-24 11:26] VITALS: BMI 29.4
[2020-07-24 11:26] LABS: MANUAL DIFF FLAG NO
[2020-07-24 11:29] LABS: Basophils Percent Auto 0.3 % (0-2); Eosinophils Absolute Auto 0.4 X10*3/uL (0.0-0.4); Eosinophils Percent Auto 6.9 % (0-4); Hematocrit 31.3 % (42-52); Hemoglobin 9.5 g/dl (14.0-18.0); Imm Gran Abs Auto 0.02 X10*3/uL (0.00-0.03); Imm Gran Pct Auto 0.3 % (0.0-0.4); Lymphocytes Absolute Auto 1.7 X10*3/uL (1.2-4.9); Lymphocytes Percent Auto 28.5 % (20-40); Mean Corpuscular HGB Conc 30.4 g/dl (31.0-36.0); Mean Corpuscular Hemoglobin 24.9 pg (27.0-33.0); Mean Corpuscular Volume 81.9 fL (80-98); Mean Platelet Volume 11.1 fL (9.4-12.4); Monocytes Absolute Auto 0.4 X10*3/uL (0.1-1.2); Monocytes Percent Auto 6.2 % (2-11); Neutrophils Absolute Auto 3.4 X10*3/uL (2.0-8.3); Neutrophils Percent Auto 57.8 % (45-73); Platelet Count 258 X10*3/uL (160-400); Red Blood Count 3.82 X10*6/uL (4.60-5.80); Red Cell Distribution Width 14.6 % (11.0-16.0); White Blood Count 5.9 X10*3/uL (4.8-10.8)
[2020-07-24 11:57] LABS: Alanine Aminotransferase 16 U/L (0-40); Albumin Level 3.3 g/dL (3.5-5.0); Alkaline Phosphatase 89 U/L (39-117); Anion Gap 12 (12-20); Aspartate Amino Transferase 14 U/L (5-37); Bilirubin Total 0.3 mg/dL (0.0-1.0); Blood Urea Nitrogen 68 mg/dL (9-16); Calcium 8.5 mg/dL (8.4-10.2); Carbon Dioxide 24 mmol/L (22-29); Chloride 108 mmol/L (96-108); Creatinine Clr Calc Pharmacy 27.6; Estimated Glomerular Filt Rate 23; Glucose Random 162 mg/dL (60-115); Potassium 5.2 mmol/L (3.3-5.1); Sodium 139 mmol/L (135-145); Total Protein 6.6 g/dL (6.5-8.0)
[2020-07-24] MEDS: Famotidine/PF 20 MG/2 ML VIAL IVPUSH (12:14)
[2020-07-24] MEDS: ondansetron HCL/NS 16 MG/50 ML PIGGYBACK 200 MG IV (12:17)
[2020-07-24] MEDS: diphenhydrAMINE HCL 50 MG/ML VIAL 25 MG IVPUSH (12:41)
[2020-07-24] MEDS: dexAMETHasone sod phosphate/NS 12 MG/50 ML PIGGYBACK 200 MG IV (13:03)
--- NOTE | 2020-07-24 15:58 | MHC.HEMONC ---
Pt here for C1 D8 of treatment. States felt very well after last treatment. Labs drawn and reviewed. IV started left hand. Treatment done and pt tolerated well. Scheduled to return in 1 week for next treatment.
[2020-07-31 11:31] LABS: MANUAL DIFF FLAG NO
[2020-07-31 11:34] LABS: Basophils Percent Auto 0.2 % (0-2); Eosinophils Absolute Auto 0.2 X10*3/uL (0.0-0.4); Eosinophils Percent Auto 4.8 % (0-4); Hematocrit 28.4 % (42-52); Hemoglobin 8.6 g/dl (14.0-18.0); Lymphocytes Absolute Auto 1.7 X10*3/uL (1.2-4.9); Lymphocytes Percent Auto 36.6 % (20-40); Mean Corpuscular HGB Conc 30.3 g/dl (31.0-36.0); Mean Corpuscular Hemoglobin 25.4 pg (27.0-33.0); Mean Corpuscular Volume 83.8 fL (80-98); Monocytes Absolute Auto 0.5 X10*3/uL (0.1-1.2); Monocytes Percent Auto 10.1 % (2-11); Neutrophils Absolute Auto 2.3 X10*3/uL (2.0-8.3); Neutrophils Percent Auto 48.3 % (45-73); Platelet Count 280 X10*3/uL (160-400); Red Blood Count 3.39 X10*6/uL (4.60-5.80); Red Cell Distribution Width 14.6 % (11.0-16.0); White Blood Count 4.8 X10*3/uL (4.8-10.8)
[2020-07-31 11:35] VITALS: BMI 34.0
[2020-07-31 11:40] VITALS: BP 120/61; PULSE 73; RESP 20; TEMP 36.9; O2SAT 97
[2020-07-31 12:04] LABS: Alanine Aminotransferase 14 U/L (0-40); Albumin Level 3.4 g/dL (3.5-5.0); Alkaline Phosphatase 94 U/L (39-117); Anion Gap 10 (12-20); Aspartate Amino Transferase 15 U/L (5-37); Bilirubin Total 0.2 mg/dL (0.0-1.0); Blood Urea Nitrogen 50 mg/dL (9-16); Calcium 8.6 mg/dL (8.4-10.2); Carbon Dioxide 26 mmol/L (22-29); Chloride 110 mmol/L (96-108); Creatinine Clr Calc Pharmacy 31.4; Estimated Glomerular Filt Rate 24; Glucose Random 129 mg/dL (60-115); Potassium 5.3 mmol/L (3.3-5.1); Sodium 141 mmol/L (135-145); Total Protein 6.3 g/dL (6.5-8.0)
[2020-07-31] MEDS: Famotidine/PF 20 MG/2 ML VIAL IVPUSH (12:34)
[2020-07-31] MEDS: diphenhydrAMINE HCL 50 MG/ML VIAL 25 MG IVPUSH (12:37)
[2020-07-31] MEDS: ondansetron HCL/NS 16 MG/50 ML PIGGYBACK 200 MG IV (12:59)
[2020-07-31] MEDS: dexAMETHasone sod phosphate/NS 12 MG/50 ML PIGGYBACK 200 MG IV (13:21)
--- NOTE | 2020-07-31 16:04 | MHC.HEMONC ---
Pt here for C1 D15 of treatment. Labs drawn, results reviewed. IV started right hand, good blood return. States felt good after last treatment. Treatment done and pt tolerated well. Will come in next week for lab draw, and next cycle scheduled for 2 weeks.
[2020-08-07 12:06] LABS: MANUAL DIFF FLAG NO
[2020-08-07 12:12] LABS: Basophils Percent Auto 0.5 % (0-2); Eosinophils Absolute Auto 0.1 X10*3/uL (0.0-0.4); Eosinophils Percent Auto 2.4 % (0-4); Hematocrit 28.1 % (42-52); Hemoglobin 8.7 g/dl (14.0-18.0); Imm Gran Abs Auto 0.01 X10*3/uL (0.00-0.03); Imm Gran Pct Auto 0.3 % (0.0-0.4); Lymphocytes Absolute Auto 1.4 X10*3/uL (1.2-4.9); Lymphocytes Percent Auto 35.6 % (20-40); Mean Corpuscular Hemoglobin 25.5 pg (27.0-33.0); Mean Corpuscular Volume 82.4 fL (80-98); Mean Platelet Volume 10.6 fL (9.4-12.4); Monocytes Absolute Auto 0.4 X10*3/uL (0.1-1.2); Monocytes Percent Auto 10.7 % (2-11); Neutrophils Absolute Auto 1.9 X10*3/uL (2.0-8.3); Neutrophils Percent Auto 50.5 % (45-73); Platelet Count 254 X10*3/uL (160-400); Red Blood Count 3.41 X10*6/uL (4.60-5.80); Red Cell Distribution Width 14.7 % (11.0-16.0); White Blood Count 3.8 X10*3/uL (4.8-10.8)
[2020-08-07 12:45] LABS: Alanine Aminotransferase 14 U/L (0-40); Albumin Level 3.3 g/dL (3.5-5.0); Alkaline Phosphatase 99 U/L (39-117); Anion Gap 13 (12-20); Aspartate Amino Transferase 18 U/L (5-37); Bilirubin Total 0.3 mg/dL (0.0-1.0); Blood Urea Nitrogen 39 mg/dL (9-16); Calcium 8.5 mg/dL (8.4-10.2); Carbon Dioxide 24 mmol/L (22-29); Chloride 108 mmol/L (96-108); Creatinine Clr Calc Pharmacy 34.2; Estimated Glomerular Filt Rate 27; Glucose Random 153 mg/dL (60-115); Potassium 4.4 mmol/L (3.3-5.1); Sodium 141 mmol/L (135-145); Total Protein 6.3 g/dL (6.5-8.0)
--- NOTE | 2020-08-07 16:24 | MHC.HEMONC ---
Lab draw done. Pt waited for results. Results reviewed with pt by Dr Mccoy. Scheduled for next chemo treatment in 1 week.
[2020-08-14 10:26] VITALS: BP 100/61; PULSE 89; RESP 18; TEMP 36.6; O2SAT 96; BMI 33.7
[2020-08-14 10:58] LABS: MANUAL DIFF FLAG NO
[2020-08-14 11:01] LABS: Basophils Percent Auto 0.7 % (0-2); Eosinophils Absolute Auto 0.2 X10*3/uL (0.0-0.4); Eosinophils Percent Auto 2.7 % (0-4); Hematocrit 27.5 % (42-52); Hemoglobin 8.4 g/dl (14.0-18.0); Imm Gran Abs Auto 0.01 X10*3/uL (0.00-0.03); Imm Gran Pct Auto 0.2 % (0.0-0.4); Lymphocytes Absolute Auto 1.6 X10*3/uL (1.2-4.9); Mean Corpuscular HGB Conc 30.5 g/dl (31.0-36.0); Mean Corpuscular Hemoglobin 25.1 pg (27.0-33.0); Mean Corpuscular Volume 82.3 fL (80-98); Mean Platelet Volume 10.7 fL (9.4-12.4); Monocytes Percent Auto 17.6 % (2-11); Neutrophils Percent Auto 50.8 % (45-73); Platelet Count 238 X10*3/uL (160-400); Red Blood Count 3.34 X10*6/uL (4.60-5.80); Red Cell Distribution Width 15.1 % (11.0-16.0); White Blood Count 5.9 X10*3/uL (4.8-10.8)
[2020-08-14 11:36] LABS: Alanine Aminotransferase 11 U/L (0-40); Albumin Level 3.2 g/dL (3.5-5.0); Alkaline Phosphatase 117 U/L (39-117); Anion Gap 14 (12-20); Aspartate Amino Transferase 13 U/L (5-37); Bilirubin Total 0.4 mg/dL (0.0-1.0); Blood Urea Nitrogen 46 mg/dL (9-16); Calcium 8.7 mg/dL (8.4-10.2); Carbon Dioxide 23 mmol/L (22-29); Chloride 106 mmol/L (96-108); Creatinine Clr Calc Pharmacy 31.7; Estimated Glomerular Filt Rate 25; Glucose Random 133 mg/dL (60-115); Potassium 4.8 mmol/L (3.3-5.1); Sodium 138 mmol/L (135-145); Total Protein 6.4 g/dL (6.5-8.0)
--- NOTE | 2020-08-14 11:50 | HE.PHANOTE ---
[facility] CALCULATED CARBOPLATIN DOSE TO BE 170MG USING ADJ BW; NURSING CONFIRMED. [employer] IS NOT CALCULATING DOSE USING ADJ BW; PATIENT IS GETTING 100% OF CALCULATED DOSE, NOT THE 83% THAT [facility] IS SHOWING.
[2020-08-14] MEDS: Famotidine/PF 20 MG/2 ML VIAL IVPUSH (11:57)
[2020-08-14] MEDS: Acetaminophen 325 MG TABLET 650 MG PO (12:00)
[2020-08-14] MEDS: ondansetron HCL/NS 16 MG/50 ML PIGGYBACK 200 MG IV (12:00)
[2020-08-14] MEDS: dexAMETHasone sod phosphate/NS 12 MG/50 ML PIGGYBACK 200 MG IV (12:17)
[2020-08-14] MEDS: diphenhydrAMINE HCL 50 MG/ML VIAL 25 MG IVPUSH (12:38)
--- NOTE | 2020-08-14 15:15 | MHC.HEMONC ---
Pt here for C2 D1 of treatment. States feels well after last cycle, except for occasional constipation. Labs drawn and reviewed. IV started right hand on 2nd attempt. Dr Mccoy spoke with pt regarding possibility of port for treatments. Pt would like to try to get through next 2 weeks of treatment without port. Treatment done and pt tolerated well. Scheduled to return in 1 week for next treatment.
[2020-08-21 10:40] VITALS: BP 191/63; PULSE 78; RESP 18; TEMP 36.6; O2SAT 97; BMI 33.7
[2020-08-21 10:40] LABS: MANUAL DIFF FLAG NO
[2020-08-21 10:49] LABS: Basophils Percent Auto 0.4 % (0-2); Eosinophils Absolute Auto 0.2 X10*3/uL (0.0-0.4); Eosinophils Percent Auto 3.4 % (0-4); Hematocrit 27.1 % (42-52); Hemoglobin 8.3 g/dl (14.0-18.0); Imm Gran Abs Auto 0.01 X10*3/uL (0.00-0.03); Imm Gran Pct Auto 0.2 % (0.0-0.4); Lymphocytes Absolute Auto 2.1 X10*3/uL (1.2-4.9); Lymphocytes Percent Auto 38.4 % (20-40); Mean Corpuscular HGB Conc 30.6 g/dl (31.0-36.0); Mean Corpuscular Hemoglobin 25.4 pg (27.0-33.0); Mean Corpuscular Volume 82.9 fL (80-98); Mean Platelet Volume 9.7 fL (9.4-12.4); Monocytes Absolute Auto 0.4 X10*3/uL (0.1-1.2); Monocytes Percent Auto 7.3 % (2-11); Neutrophils Absolute Auto 2.7 X10*3/uL (2.0-8.3); Neutrophils Percent Auto 50.3 % (45-73); Platelet Count 196 X10*3/uL (160-400); Red Blood Count 3.27 X10*6/uL (4.60-5.80); Red Cell Distribution Width 15.2 % (11.0-16.0); White Blood Count 5.4 X10*3/uL (4.8-10.8)
[2020-08-21 11:26] LABS: Alanine Aminotransferase 12 U/L (0-40); Albumin Level 3.3 g/dL (3.5-5.0); Alkaline Phosphatase 106 U/L (39-117); Anion Gap 14 (12-20); Aspartate Amino Transferase 14 U/L (5-37); Bilirubin Total < 0.2 mg/dL (0.0-1.0); Blood Urea Nitrogen 59 mg/dL (9-16); Calcium 8.6 mg/dL (8.4-10.2); Carbon Dioxide 24 mmol/L (22-29); Chloride 108 mmol/L (96-108); Creatinine Clr Calc Pharmacy 33.4; Estimated Glomerular Filt Rate 26; Glucose Random 145 mg/dL (60-115); Potassium 5.2 mmol/L (3.3-5.1); Sodium 141 mmol/L (135-145); Total Protein 6.5 g/dL (6.5-8.0)
[2020-08-21] MEDS: Famotidine/PF 20 MG/2 ML VIAL IVPUSH (11:54)
[2020-08-21] MEDS: Acetaminophen 325 MG TABLET 650 MG PO (11:57)
[2020-08-21] MEDS: ondansetron HCL/NS 16 MG/50 ML PIGGYBACK 200 MG IV (11:57)
[2020-08-21] MEDS: dexAMETHasone sod phosphate/NS 12 MG/50 ML PIGGYBACK 200 MG IV (12:14)
[2020-08-21] MEDS: diphenhydrAMINE HCL 50 MG/ML VIAL 25 MG IVPUSH (12:36)
--- NOTE | 2020-08-21 15:26 | MHC.HEMONC ---
Pt here for C2 D8 of treatment. Pt states he feels good after last treatment. IV attempt x4, and successful with 5th attempt. #24angio to right wrist by Juan CAST. Premeds given as ordered. Treatment done and pt tolerated well. Scheduled to return in 1 week for next treatment.
[2020-08-28 10:48] VITALS: BMI 33.5
[2020-08-28 10:49] VITALS: BP 134/63; PULSE 93; RESP 18; TEMP 36.2; O2SAT 97
[2020-08-28 11:22] LABS: MANUAL DIFF FLAG NO
[2020-08-28 11:30] LABS: Basophils Percent Auto 0.3 % (0-2); Eosinophils Absolute Auto 0.1 X10*3/uL (0.0-0.4); Hematocrit 25.6 % (42-52); Hemoglobin 7.9 g/dl (14.0-18.0); Imm Gran Abs Auto 0.02 X10*3/uL (0.00-0.03); Imm Gran Pct Auto 0.6 % (0.0-0.4); Lymphocytes Absolute Auto 1.1 X10*3/uL (1.2-4.9); Lymphocytes Percent Auto 30.4 % (20-40); Mean Corpuscular HGB Conc 30.9 g/dl (31.0-36.0); Mean Corpuscular Hemoglobin 25.3 pg (27.0-33.0); Mean Corpuscular Volume 82.1 fL (80-98); Mean Platelet Volume 10.2 fL (9.4-12.4); Monocytes Absolute Auto 0.4 X10*3/uL (0.1-1.2); Monocytes Percent Auto 10.6 % (2-11); Neutrophils Percent Auto 56.1 % (45-73); Platelet Count 226 X10*3/uL (160-400); Red Blood Count 3.12 X10*6/uL (4.60-5.80); Red Cell Distribution Width 15.7 % (11.0-16.0); White Blood Count 3.6 X10*3/uL (4.8-10.8)
[2020-08-28 11:51] LABS: Alanine Aminotransferase 12 U/L (0-40); Albumin Level 3.2 g/dL (3.5-5.0); Alkaline Phosphatase 106 U/L (39-117); Anion Gap 14 (12-20); Aspartate Amino Transferase 13 U/L (5-37); Bilirubin Total < 0.2 mg/dL (0.0-1.0); Blood Urea Nitrogen 55 mg/dL (9-16); Calcium 8.6 mg/dL (8.4-10.2); Carbon Dioxide 23 mmol/L (22-29); Chloride 106 mmol/L (96-108); Creatinine Clr Calc Pharmacy 30.9; Estimated Glomerular Filt Rate 25; Glucose Random 231 mg/dL (60-115); Potassium 4.8 mmol/L (3.3-5.1); Sodium 138 mmol/L (135-145); Total Protein 6.4 g/dL (6.5-8.0)
[2020-08-28] MEDS: Famotidine/PF 20 MG/2 ML VIAL IVPUSH (12:12)
[2020-08-28] MEDS: ondansetron HCL/NS 16 MG/50 ML PIGGYBACK 200 MG IV (12:14)
[2020-08-28] MEDS: Acetaminophen 325 MG TABLET 650 MG PO (12:15)
[2020-08-28] MEDS: dexAMETHasone sod phosphate/NS 12 MG/50 ML PIGGYBACK 200 MG IV (12:32)
[2020-08-28] MEDS: diphenhydrAMINE HCL 50 MG/ML VIAL 25 MG IVPUSH (12:49)
--- NOTE | 2020-08-28 16:28 | MHC.HEMONC ---
Pt here for C2 D15 of treatment. States has been feeling tired this week. Labs drawn and reviewed. HGB 7.9, reported to Dr Mccoy. Will schedule transfusion for next week. Denies SOB. IV started right AC. Premeds given as ordered. Treatment done and pt tolerated well. Scheduled to return on 09/01 for transfusion of 2 units PRBC's.
[2020-09-01] VITALS (7 sets, daily range): BP systolic 139–204; BP diastolic 64–87; PULSE 67–86; RESP 18–20; TEMP 36.1–36.6; O2SAT 97
--- NOTE | 2020-09-01 16:41 | MHC.HEMONC ---
Pt here for transfusion of 2 units PRBC's. IV started right AC. Both units infused without difficulty. Lung sounds clear throughout. Pt discharged home. Scheduled to return for next chemo treatment 09/11
[2020-09-11 10:26] VITALS: BP 192/77; PULSE 88; RESP 18; TEMP 36.6; O2SAT 95; BMI 33.7
[2020-09-11 11:51] LABS: Hematocrit 29.5 % (42-52); Hemoglobin 9.2 g/dl (14.0-18.0); Mean Corpuscular HGB Conc 31.2 g/dl (31.0-36.0); Mean Corpuscular Hemoglobin 26.7 pg (27.0-33.0); Mean Corpuscular Volume 85.5 fL (80-98); Mean Platelet Volume 9.9 fL (9.4-12.4); Platelet Count 197 X10*3/uL (160-400); Red Blood Count 3.45 X10*6/uL (4.60-5.80); Red Cell Distribution Width 18.1 % (11.0-16.0)
[2020-09-11] MEDS: Famotidine/PF 20 MG/2 ML VIAL IVPUSH (12:03)
[2020-09-11] MEDS: ondansetron HCL/NS 16 MG/50 ML PIGGYBACK 200 MG IV (12:06)
[2020-09-11 12:17] LABS: Band Neutrophils Percent 3 % (3-5); Basophils Abs Manual 0.1 X10*3/uL (0.0-0.3); Basophils Percent Manual 2 % (0-1); Eosinophils Absolute Manual 0.1 X10*3/UL (0.0-0.8); Eosinophils Percent Manual 2 % (0-4); Lymphocytes Percent Manual 49 % (20-40); Metamyelocytes Absolute 0.1 X10*3/uL; Metamyelocytes Percent 2 %; Monocytes Absolute Manual 0.4 X10*3/uL (0.0-1.2); Monocytes Percent Manual 11 % (2-11); Neutrophils Absolute Manual 1.4 X10*3/uL (2.2-7.9); Neutrophils Percent Manual 31 % (45-73)
[2020-09-11 12:19] LABS: Platelet Estimate NORMAL (NORMAL); Platelet Morphology Comment NORMAL; RBC Morphology NORMAL
[2020-09-11 12:22] LABS: Alanine Aminotransferase 12 U/L (0-40); Albumin Level 3.2 g/dL (3.5-5.0); Alkaline Phosphatase 116 U/L (39-117); Anion Gap 9 (12-20); Aspartate Amino Transferase 12 U/L (5-37); Bilirubin Total 0.2 mg/dL (0.0-1.0); Blood Urea Nitrogen 45 mg/dL (9-16); Calcium 8.8 mg/dL (8.4-10.2); Carbon Dioxide 28 mmol/L (22-29); Chloride 108 mmol/L (96-108); Creatinine Clr Calc Pharmacy 32.7; Estimated Glomerular Filt Rate 26; Glucose Random 135 mg/dL (60-115); Potassium 4.9 mmol/L (3.3-5.1); Sodium 140 mmol/L (135-145); Total Protein 6.4 g/dL (6.5-8.0)
[2020-09-11] MEDS: dexAMETHasone sod phosphate/NS 12 MG/50 ML PIGGYBACK 200 MG IV (12:32)
[2020-09-11] MEDS: diphenhydrAMINE HCL 50 MG/ML VIAL 25 MG IVPUSH (12:53)
[2020-09-11] MEDS: Acetaminophen 325 MG TABLET 650 MG PO (12:56)
[2020-09-11 13:41] VITALS: BP 184/76; PULSE 73; RESP 20; O2SAT 95
--- NOTE | 2020-09-11 15:40 | MHC.HEMONC ---
Pt here for C3 D1 of treatment. States feels good, except has been tired. Also states he has noticed a cough over the last 3-4 days. Cough is loose, but non-productive. Lungs sound congested, but clear with cough. States has been using his inhaler at home. Labs drawn and reviewed. Hgb 9.2. IV started left forearm. Premedicated as ordered. Treatment done and pt tolerated well. Was able to sleep through treatment. Dr Mccoy aware of pt's cough. Order for CXR for today after treatment, but pt states he can not stay for xray. He states will come back at beginning of the week. Scheduled for next treatment in 1 week.
[2020-09-18 11:00] VITALS: BP 127/60; PULSE 89; RESP 18; TEMP 36.4; O2SAT 98; BMI 33.3
[2020-09-18 11:00] LABS: MANUAL DIFF FLAG NO
[2020-09-18 11:06] LABS: Basophils Percent Auto 0.3 % (0-2); Eosinophils Absolute Auto 0.1 X10*3/uL (0.0-0.4); Eosinophils Percent Auto 2.6 % (0-4); Hematocrit 30.5 % (42-52); Hemoglobin 9.6 g/dl (14.0-18.0); Imm Gran Abs Auto 0.02 X10*3/uL (0.00-0.03); Imm Gran Pct Auto 0.6 % (0.0-0.4); Lymphocytes Absolute Auto 1.4 X10*3/uL (1.2-4.9); Lymphocytes Percent Auto 40.3 % (20-40); Mean Corpuscular HGB Conc 31.5 g/dl (31.0-36.0); Mean Corpuscular Hemoglobin 27.3 pg (27.0-33.0); Mean Corpuscular Volume 86.6 fL (80-98); Mean Platelet Volume 9.8 fL (9.4-12.4); Monocytes Absolute Auto 0.2 X10*3/uL (0.1-1.2); Monocytes Percent Auto 5.6 % (2-11); Neutrophils Absolute Auto 1.7 X10*3/uL (2.0-8.3); Neutrophils Percent Auto 50.6 % (45-73); Platelet Count 150 X10*3/uL (160-400); Red Blood Count 3.52 X10*6/uL (4.60-5.80); Red Cell Distribution Width 17.6 % (11.0-16.0); White Blood Count 3.4 X10*3/uL (4.8-10.8)
[2020-09-18 11:38] LABS: Alanine Aminotransferase 15 U/L (0-40); Albumin Level 3.3 g/dL (3.5-5.0); Alkaline Phosphatase 118 U/L (39-117); Anion Gap 12 (12-20); Aspartate Amino Transferase 16 U/L (5-37); Bilirubin Total < 0.2 mg/dL (0.0-1.0); Blood Urea Nitrogen 49 mg/dL (9-16); Calcium 8.7 mg/dL (8.4-10.2); Carbon Dioxide 25 mmol/L (22-29); Chloride 108 mmol/L (96-108); Creatinine Clr Calc Pharmacy 33.5; Estimated Glomerular Filt Rate 27; Glucose Random 187 mg/dL (60-115); Potassium 5.1 mmol/L (3.3-5.1); Sodium 140 mmol/L (135-145); Total Protein 6.9 g/dL (6.5-8.0)
[2020-09-18] MEDS: ondansetron HCL/NS 16 MG/50 ML PIGGYBACK 200 MG IV (12:02)
[2020-09-18] MEDS: Famotidine/PF 20 MG/2 ML VIAL IVPUSH (12:02)
[2020-09-18] MEDS: diphenhydrAMINE HCL 50 MG/ML VIAL 25 MG IVPUSH (12:26)
[2020-09-18] MEDS: dexAMETHasone sod phosphate/NS 12 MG/50 ML PIGGYBACK 200 MG IV (12:41)
--- NOTE | 2020-09-18 15:30 | MHC.HEMONC ---
CYCLE 3 DAY 8: CARBO/TAXOL well tolerated. VSS. Labs reviewed. Patient complaining of constant dry cough, CT scan ordered and given to Regi johnson in order element setter. Dr. Mccoy ordered cough syrup. Patient to return next week for chemotherapy. IV #24 discontinued to left lower arm.
[2020-09-25 11:15] VITALS: BP 118/53; PULSE 91; RESP 18; TEMP 36.3; O2SAT 94; BMI 33.4
[2020-09-25 12:05] LABS: MANUAL DIFF FLAG NO
[2020-09-25 12:10] LABS: Eosinophils Absolute Auto 0.1 X10*3/uL (0.0-0.4); Eosinophils Percent Auto 2.8 % (0-4); Hematocrit 27.4 % (42-52); Hemoglobin 8.4 g/dl (14.0-18.0); Imm Gran Abs Auto 0.01 X10*3/uL (0.00-0.03); Imm Gran Pct Auto 0.3 % (0.0-0.4); Lymphocytes Absolute Auto 1.5 X10*3/uL (1.2-4.9); Lymphocytes Percent Auto 47.8 % (20-40); Mean Corpuscular HGB Conc 30.7 g/dl (31.0-36.0); Mean Corpuscular Hemoglobin 26.8 pg (27.0-33.0); Mean Corpuscular Volume 87.3 fL (80-98); Mean Platelet Volume 9.8 fL (9.4-12.4); Monocytes Absolute Auto 0.4 X10*3/uL (0.1-1.2); Monocytes Percent Auto 13.6 % (2-11); Neutrophils Absolute Auto 1.1 X10*3/uL (2.0-8.3); Neutrophils Percent Auto 35.5 % (45-73); Platelet Count 186 X10*3/uL (160-400); Red Blood Count 3.14 X10*6/uL (4.60-5.80); Red Cell Distribution Width 17.9 % (11.0-16.0); White Blood Count 3.2 X10*3/uL (4.8-10.8)
--- NOTE | 2020-09-25 12:10 | P.PNHO_ITS ---
Medical Summary - Medical Summary Date of Service: 09/25/20 Chief complaint: Follow-up for: Lung cancer. 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 CURRENT THERAPY: On systemic chemotherapy, with low-dose weekly Carbo/Taxol, here for week 9. Interval History Interval history: Andi Justin is a pleasant 69 year old gentleman, here for a follow-up visit and for his 9th week of chemotherapy. He tells me this past week, his energy level has been rather low. Previous to that he felt quite energetic. However this week she has been down. He had a cough last week. Chest x-ray was done on 09/16 which revealed: Postop changes. He denies fever nor chills. HEENT: No headache no dizziness. CVS: He denies any chest pain however he does get short of breath especially when he tries to lay down. Pulmonary: He has a cough. He brings up sputum a couple of times a day which is yellowish. He has felt SOB especially on exertion. GI: Denies abdominal pain nausea vomiting heartburn indigestion. Bowels are working without any gross blood in it. He has been constipated for 3 days. He thinks that is causing his appetite to be low. He did not take the stool softener since he had to be here for his treatment today. : He has increased frequency of micturition. He goes 10 times a day. Musculoskeletal: He had left knee replacement. His right knee is bothering him now. 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 His sleep times are messed up. Sometimes if he goes to bed at 12 he wakes up at 05:00. If he sleeps earlier than he wakes up at 2. Psych: Denies depression. Derm: No skin rash nor pruritus. Previous history: He has a history of COPD. He has had a lung nodule that was being followed by imaging. On 06 February 2020, low-dose CT chest revealed: Enlarging suspicious looking 2.2 x 1.6 cm irregular marginated left lower lobe lesion. PET/CT would be helpful in further evaluation if percutaneous biopsy is not being contemplated. Old granulomatous disease. Mild mediastinal and hilar lymphadenopathy. 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 Lung-RADS category 4B: Suspicious. PET scan from 02/24 revealed: 1. A medial pleural-based left lower lobe there is no definite abnormal FDG activity suggesting a benign etiology. However because approximately 10% of pulmonary malignancies demonstrate no abnormal FDG activity, in addition this nodule has enlarged since less recent prior CT scans, if biopsy of this nodule is not obtained, followup with diagnostic CT scan in 3-6 months is recommended. 2. Several nonenlarged FDG avid mediastinal lymph nodes are present as described above, and these are nonspecific and may be inflammatory or malignant in etiology. 3. No additional abnormalities suspicious for metastatic or other malignant lesions are noted. CT chest from 06/03: Exam is limited due to respiratory motion artifact however there appears to be continued slight interval increase in size in the left lower lobe nodule compared to most recent exam January 2020. Paraseptal emphysema and question mild interstitial disease at the lung bases. Enlarged heart. Diffuse increased sclerosis of the bones questionable for metabolic bone disease. On June 16 he underwent: Left lower lobe lung wedge resection. Frozen section diagnosis: Adenocarcinoma, similar to the tumor in lymph node. Margin positive for tumor. Frozen section from re-excision of the margin: New margin positive for tumor in lymphatic vessels and lymph node. Family history: Several family members have diabetes. An uncle of stomach cancer. Social history: He is originally from [place]. 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 He came to .. in 1993.. 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 He came to [place] in April of 2015 after half-way. He is . Has 3 children. He smoked a pack-a-day quit 11/30/2019. Review of Systems - Constitutional Reports no additional constitutional complaints, Reports lack of energy, Reports poor appetite, Reports weight loss - Eyes Reports no additional eye complaints - ENT Reports no additional ear, nose, mouth, and throat complaints - Cardiovascular Reports no additional cardiovascular complaints - Respiratory Reports no additional respiratory complaints - Gastrointestinal Reports no additional gastrointestinal complaints - Genitourinary Genitourinary: Reports no additional male genitourinary complaints - Musculoskeletal Reports no additional musculoskeletal complaints - Integumentary/Breasts Skin/Breast: Reports no additional skin complaints - Neurologic Reports no additional neurologic complaints, Reports weakness - Psychiatric Reports no additional psychiatric complaints - Endocrine Reports no additional endocrine complaints - Hematologic/Lymphatic Reports no additional hematologic/lymphatic complaints - Allergic/Immunologic Reports no additional allergic/immunologic complaints [facility] Medical History: Medical History (Last Reviewed 07/23/20 @ 11:18 by KT Murray) CKD (chronic kidney disease) COPD (chronic obstructive pulmonary disease) COPD (chronic obstructive pulmonary disease) Diabetes Dyspnea on exertion HTN (hypertension) Lung nodule Personal history of nicotine dependence Restrictive lung disease Functional capacity: independent ambulation Patient : No Family History: Family History (Last Reviewed 07/23/20 @ 11:18 by KT Murray) Father No problems noted. 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 to a significant other at home: Yes Do you presently have visiting nurse or other home services: Yes Do you presently have visiting nurse or other home services comment: cleaning Alcohol History: Alcohol intake: never Tobacco History: Years Smoked: 54 Substance Use History: Use of substances other than those prescribed or required for medical reasons : No Nutrition Assessment: Patient : No Oncology Screenings - ECOG Performance Status ECOG Performance Status: 0 Home Medications and Allergies Current Medications: Current Medications Generic Name Dose Route Start Last Admin Trade Name Freq PRN Reason Stop Dose Admin Diphenhydramine HCl 25 mg 09/25/20 00:00 Diphenhydramine Hcl 50 Mg/Ml Vial IVPUSH 09/25/20 23:59 ONCE ONE Famotidine 20 mg 09/25/20 00:00 Famotidine/Pf 20 Mg/2 Ml Vial IVPUSH 09/25/20 23:59 ONCE ONE Home Medications Medication Instructions Recorded Confirmed Type sodium polystyrene sulfonate PO 07/23/20 07/23/20 History Allergies Allergy/AdvReac Type Severity Reaction Status Date / Time No Known Allergies Allergy Verified 07/23/20 11:18 [No Known Allergies*] Exam Vital signs: Vital Signs Temp 97.3 F 09/25/20 11:15 Pulse 91 09/25/20 11:15 Resp 18 09/25/20 11:15 BP 118/53 L 09/25/20 11:15 Pulse Ox 94 09/25/20 11:15 Intake & Output 09/24/20 09/25/20 09/25/20 18:59 06:59 18:59 Other: Weight 102.6 kg [place] Weight in Grams [id number] Weight 102.6 kg Body Mass Index 33.4 - Constitutional Present: mild distress - Routine HEENT Exam Head: Present: normal inspection Eye: Present: normal appearance ENT: Present: mucous membranes moist - Routine Neck Exam Present: full ROM - Routine Respiratory Exam Present: CTAB - Routine Cardiovascular Exam Cardiovascular: Present: RRR, S1, S2 - Routine Abdominal Exam Present: soft, nontender - Routine Extremities Exam Present: nontender - Routine Back/Spine/Pelvis Exam Back/Spine: Present: full ROM - Routine Skin Exam Present: intact - Routine Neurological Exam Present: alert, oriented X3 - Detailed Neurological Exam: Coma Scale Eye Opening: Spontaneous (4) - Routine Psychiatric Exam Present: normal affect Data - Labs CBC & Chem 7: 09/25/20 12:01 09/25/20 12:01 Labs: 06/22/20 14:01 Carcinoembryonic Antigen Routine Complete Blood Count Auto Diff Routine Comprehensive Met. Panel Routine PSA [Prostate Specific Antigen Scr] Routine Laboratory Last Values WBC 9.2 X10*3/uL (4.8-10.8) 06/22/20 14:01 RBC 3.85 X10*6/uL (4.60-5.80) L 06/22/20 14:01 Hgb 9.8 g/dl (14.0-18.0) L 06/22/20 14:01 Hct 31.9 % (42-52) L 06/22/20 14:01 MCV 82.9 fL (80-98) 06/22/20 14:01 MCH 25.5 pg (27.0-33.0) L 06/22/20 14:01 MCHC 30.7 g/dl (31.0-36.0) L 06/22/20 14:01 RDW 14.4 % (11.0-16.0) 06/22/20 14:01 Plt Count 328 X10*3/uL (160-400) 06/22/20 14:01 MPV 10.9 fL (9.4-12.4) 06/22/20 14:01 Immature Gran % (Auto) 0.9 % (0.0-0.4) H 06/22/20 14:01 Neut % (Auto) 59.1 % (45-73) 06/22/20 14:01 Lymph % (Auto) 22.5 % (20-40) 06/22/20 14:01 [place] % (Auto) 12.5 % (2-11) H 06/22/20 14:01 Eos % (Auto) 4.7 % (0-4) H 06/22/20 14:01 Baso % (Auto) 0.3 % (0-2) 06/22/20 14:01 Lymph # (Auto) 2.1 X10*3/uL (1.2-4.9) 06/22/20 14:01 [place] # (Auto) 1.2 X10*3/uL (0.1-1.2) 06/22/20 14:01 Eos # (Auto) 0.4 X10*3/uL (0.0-0.4) 06/22/20 14:01 Baso # (Auto) 0.0 X10*3/uL (0.0-0.2) 06/22/20 14:01 Abs Immat Gran (auto) 0.08 X10*3/uL (0.00-0.03) H 06/22/20 14:01 Absolute Neuts (auto) 5.4 X10*3/uL (2.0-8.3) 06/22/20 14:01 Absolute Nucleated RBC 0.000 X10*3/uL (0.0-0.012) 06/22/20 14:01 Nucleated RBC % (auto) 0.0 /100WBC (0.0-0.2) 06/22/20 14:01 Sodium 142 mmol/L (135-145) 06/22/20 14:01 Potassium 5.4 mmol/L (3.3-5.1) H 06/22/20 14:01 Chloride 108 mmol/L (96-108) 06/22/20 14:01 Carbon Dioxide 25 mmol/L (22-29) 06/22/20 14:01 Anion Gap 14 (12-20) 06/22/20 14:01 BUN 50 mg/dL (9-16) H 06/22/20 14:01 Creatinine 3.04 mg/dL (0.5-1.4) H 06/22/20 14:01 Estim Creat Clear Calc 26.1 06/22/20 14:01 Estimated GFR 20 06/22/20 14:01 Random Glucose 203 mg/dL (60-115) H 06/22/20 14:01 Calcium 8.5 mg/dL (8.4-10.2) 06/22/20 14:01 Total Bilirubin 0.3 mg/dL (0.0-1.0) 06/22/20 14:01 AST 30 U/L (5-37) 06/22/20 14: ALT 18 U/L (0-40) 06/22/20 14:01 Alkaline Phosphatase 133 U/L (39-117) H 06/22/20 14:01 Total Protein 6.7 g/dL (6.5-8.0) 06/22/20 14: Albumin 3.3 g/dL (3.5-5.0) L 06/22/20 14:01 Carcinoembryonic Ag 5.40 ng/mL 06/22/20 14: PSA Screen 2.81 ng/mL (<0.05-4.0) 06/22/20 14:01 Progress Note: A/P (1) Adenocarcinoma of lung, stage 3 Problem details: PATIENT IS BEING FOLLOWED BY DR. BERRY FOR ONCOLOGY, SHE IS COMPLETING THE STAGING WORKUP, I DISCUSSED WITH HER AND SHE EXPLAINED THAT BECAUSE OF HIS UNDERLYING KIDNEY DISEASE AGGRESSIVE CHEMOTHERAPY WILL NOT BE POSSIBLE. SHE HAS REFERRED HIM FOR RADIATION THERAPY. Status: Acute Assessment and plan: This is an unfortunate 70 year-old gentleman with history of smoking, who has non-small cell lung carcinoma. Final pathology report revealed: Primary tumor: 3.1 x 2 x 2 cm, adenocarcinoma, invasive, acinar pattern predominant, of pulmonary origin. Moderately differentiated. Tumor invades visceral pleura up. Tumor spread through air spaces. Lymphatic vessel invasion: Foci suspicious. Blood vessel invasion: Not identified. Tumor necrosis: Present. Margins of resection: Tumor present in lymph node and lymphatic vessels at the margin. Lymph nodes: Perihilar/intraparenchymal: 1. With extra tyrel extension. Left level 9: 1. Left level 5:1. Left level 10: 1. Left perivascular: Negative. TTF 1: Positive. Pathologic TNM stage:pT2a,pN2, Mx. I proceeded with staging workup. His PET scan from 06/30: Postsurgical changes from resection of a previously visualized left lower lobe pulmonary nodule are noted. Mildly to moderately intense FDG activity is associated with suture lines and a small amount of left pleural fluid in this region which likely represent post surgical inflammatory changes. Multiple stable appearing mediastinal lymph nodes are present, and these continue to show mild FDG activity which is not significantly changed from the prior 02/25/2020 PET/CT scan. These may be inflammatory or malignant in etiology. No additional abnormalities suspicious for other metastatic or malignant les ions are noted. MRI of the head was done, however could not give contrast due to renal function. He had a tele visit with Dr. Girma Daniel, from [facility]. I discussed the treatment plan with him. He had disease localized to the chest, so I proceeded with upfront chemotherapy. I was rather concerned about his kidney function being elevated. His Carbo dose with AUC of 2 would be around 110. He had low does weekly Carbo/Paclitaxel, today is cycle 3 day 15. His ANC is 1.1 however he will be on a break after this treatment. PLAN: His CAT scan is scheduled for Monday. Can then proceed with consolidative radiation therapy, based upon the results. This will be followed by consolidative Darvalumab maintenance, for up to 12 months. Will continue to monitor his labs including kidney function. Thank you, CC: Dr. Myers. Dr. Muñoz. Dr. Girma Daniel. - Time Spent With Patient Total time spent is greater than 50% in coordination of care (as documented) at patient's floor/unit and/or counseling patient: 25 - 35 minutes
--- NOTE | 2020-09-25 12:30 | HE.PHANOTE ---
PATIENT'S ANC IS BELOW THE RECOMMENDED LEVEL OF 1.5 (CURRENTLY 1.1) BUT MD WOULD LIKE TO TREAT SINCE THIS IS PATIENT'S LAST TREATMENT BEFORE A SCAN.
[2020-09-25 12:38] LABS: Alanine Aminotransferase 11 U/L (0-40); Albumin Level 3.2 g/dL (3.5-5.0); Alkaline Phosphatase 109 U/L (39-117); Anion Gap 11 (12-20); Aspartate Amino Transferase 14 U/L (5-37); Bilirubin Total 0.2 mg/dL (0.0-1.0); Blood Urea Nitrogen 46 mg/dL (9-16); Calcium 8.8 mg/dL (8.4-10.2); Carbon Dioxide 26 mmol/L (22-29); Chloride 107 mmol/L (96-108); Creatinine Clr Calc Pharmacy 29.1; Estimated Glomerular Filt Rate 23; Glucose Random 157 mg/dL (60-115); Sodium 139 mmol/L (135-145); Total Protein 6.5 g/dL (6.5-8.0)
[2020-09-25] MEDS: Famotidine/PF 20 MG/2 ML VIAL IVPUSH (12:58)
[2020-09-25] MEDS: ondansetron HCL/NS 16 MG/50 ML PIGGYBACK 200 MG IV (12:59)
[2020-09-25] MEDS: diphenhydrAMINE HCL 50 MG/ML VIAL 25 MG IVPUSH (13:17)
[2020-09-25] MEDS: dexAMETHasone sod phosphate/NS 12 MG/50 ML PIGGYBACK 200 MG IV (13:40)
--- NOTE | 2020-09-25 16:15 | MHC.HEMONC ---
Pt here for C3 D15 Carbo/Taxol. States he has been very tired the last several days, and has had decreased appetite. Labs drawn and reviewed. ANC 1.1, reported to Dr Mccoy. Ok to continue with treatment per Dr Mccoy. IV started left hand, #24 angio. Premedicated as ordered. Treatment done and pt tolerated well. Scheduled for CT scan Monday, and for televisit with Dr Mccoy on 10/[address] to review results of Ct scan.
--- NOTE | 2020-09-28 13:50 | HO.HEMONCPA ---
PA FOR DARATUMUMAB NOT REQUIRED. DRUG IS COVERED UNDER MEDICAL BENEFIT.
--- NOTE | 2020-10-01 13:58 | P.PNHO_ITS ---
[facility] Clinic Telehealth - Telehealth Location of Provider rendering services: Hem/Onc office. Location of Patient: Home. Patient Identification confirmed using: Name, : Yes Telehealth Method: Via telephone. Patient verbally consented to treatment: Yes Patient verbally consented to billing insurance company: Yes Patient informed of any privacy concerns related to visit: Yes Medical Summary - Medical Summary Date of Service: 10/01/20 Chief complaint: Follow-up for: Adenocarcinoma of the lung. 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 CURRENT THERAPY: On systemic chemotherapy, with low-dose weekly Carbo/Taxol, completed week 9 on 09/25 . Interval History Interval history: Andi Justin is a pleasant 69 year old gentleman, with whom a tele-visit was held. He tells me this past week, his energy level has been extremely low. He feels that he will either fall or pass out when he tries to walk. His has taken a turn for the worst. She had undergone a liver transplant 3 weeks ago. Initially she was doing well however then she developed some complications. Five days ago she had a cardiac arrest. She is in a coma. She has not woken up. It does not good. It is taking a toll on Mr. Justin. He denies fever nor chills. HEENT: No headache no dizziness. CVS: He denies any chest pain however he does get short of breath especially when he tries to lay down. Pulmonary: He has a cough. He brings up sputum a couple of times a day which is yellowish. He has felt SOB especially on exertion. He had a Chest x-ray done on 09/16 which revealed: Postop changes. GI: Denies abdominal pain nausea vomiting heartburn indigestion. Bowels are working without any gross blood in it. He has been constipated for 3 days. He thinks that is causing his appetite to be low. : He has increased frequency of micturition. He goes 10 times a day. Musculoskeletal: He had left knee replacement. His right knee is bothering him now. [employer]: No focal deficits. His sleep times are messed up. Sometimes if he goes to bed at 12 he wakes up at 05:00. If he sleeps earlier than he wakes up at 2. Psych: Denies depression. Derm: No skin rash nor pruritus. Previous history: He has a history of COPD. He has had a lung nodule that was being followed by imaging. On 06 February 2020, low-dose CT chest revealed: Enlarging suspicious looking 2.2 x 1.6 cm irregular marginated left lower lobe lesion. PET/CT would be helpful in further evaluation if percutaneous biopsy is not being contemplated. Old granulomatous disease. Mild mediastinal and hilar lymphadenopathy. 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 Lung-RADS category 4B: Suspicious. PET scan from 02/24 revealed: 1. A medial pleural-based left lower lobe there is no definite abnormal FDG activity suggesting a benign etiology. However because approximately 10% of pulmonary malignancies demonstrate no abnormal FDG activity, in addition this nodule has enlarged since less recent prior CT scans, if biopsy of this nodule is not obtained, followup with diagnostic CT scan in 3-6 months is recommended. 2. Several nonenlarged FDG avid mediastinal lymph nodes are present as described above, and these are nonspecific and may be inflammatory or malignant in etiology. 3. No additional abnormalities suspicious for metastatic or other malignant lesions are noted. CT chest from 06/03: Exam is limited due to respiratory motion artifact however there appears to be continued slight interval increase in size in the left lower lobe nodule compared to most recent exam January 2020. Paraseptal emphysema and question mild interstitial disease at the lung bases. Enlarged heart. Diffuse increased sclerosis of the bones questionable for metabolic bone disease. On June 16 he underwent: Left lower lobe lung wedge resection. Frozen section diagnosis: Adenocarcinoma, similar to the tumor in lymph node. Margin positive for tumor. Frozen section from re-excision of the margin: New margin positive for tumor in lymphatic vessels and lymph node. Family history: Several family members have diabetes. An uncle of stomach cancer. Social history: He is originally from [place]. 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 [place] 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 He came to [place] in April of 2015 after shelter. He is . Has 3 children. He smoked a pack-a-day quit 11/30/2019. Review of Systems - Constitutional Reports no additional constitutional complaints, Reports lack of energy, Reports malaise, Reports weight loss - Eyes Reports no additional eye complaints - ENT Reports no additional ear, nose, mouth, and throat complaints - Cardiovascular Reports no additional cardiovascular complaints - Respiratory Reports no additional respiratory complaints, Reports chest congestion, Reports cough, Denies hemoptysis - Gastrointestinal Reports no additional gastrointestinal complaints - Genitourinary Genitourinary: Reports no additional male genitourinary complaints - Musculoskeletal Reports no additional musculoskeletal complaints - Integumentary/Breasts Skin/Breast: Reports no additional skin complaints - Neurologic Reports no additional neurologic complaints, Reports weakness - Psychiatric Reports no additional psychiatric complaints - Endocrine Reports no additional endocrine complaints - Hematologic/Lymphatic Reports no additional hematologic/lymphatic complaints - Allergic/Immunologic Reports no additional allergic/immunologic complaints Oncology Screenings - ECOG Performance Status ECOG Performance Status: 2 Home Medications and Allergies Home Medications Medication Instructions Recorded Confirmed Type sodium polystyrene sulfonate PO 07/23/20 07/23/20 History Allergies Allergy/AdvReac Type Severity Reaction Status Date / Time No Known Allergies Allergy Verified 07/23/20 11:18 [No Known Allergies*] Exam Vital signs: Vital Signs Temp 97.3 F 09/25/20 11:15 Pulse 91 09/25/20 11:15 Resp 18 09/25/20 11:15 BP 118/53 L 09/25/20 11:15 Pulse Ox 94 09/25/20 11:15 Weight 102.6 kg Body Mass Index 33.4 - Constitutional Present: mild distress - Routine HEENT Exam Head: Present: normal inspection - Routine Neck Exam Present: full ROM - Routine Respiratory Exam Present: CTAB - Routine Cardiovascular Exam Cardiovascular: Present: RRR, S1, S2 - Routine Abdominal Exam Present: soft, nontender - Routine Extremities Exam Present: nontender - Routine Back/Spine/Pelvis Exam Back/Spine: Present: full ROM - Routine Skin Exam Present: intact - Routine Neurological Exam Present: alert, oriented X3 - Detailed Neurological Exam: Coma Scale Eye Opening: Spontaneous (4) - Routine Psychiatric Exam Present: normal affect Data - Labs CBC & Chem 7: 10/08/20 10:38 10/08/20 10:38 Labs: 06/22/20 14:01 Carcinoembryonic Antigen Routine Complete Blood Count Auto Diff Routine Comprehensive Met. Panel Routine PSA [Prostate Specific Antigen Scr] Routine Laboratory Last Values WBC 9.2 X10*3/uL (4.8-10.8) 06/22/20 14:01 RBC 3.85 X10*6/uL (4.60-5.80) L 06/22/20 14:01 Hgb 9.8 g/dl (14.0-18.0) L 06/22/20 14:01 Hct 31.9 % (42-52) L 06/22/20 14: MCV 82.9 fL (80-98) 06/22/20 14:01 MCH 25.5 pg (27.0-33.0) L 06/22/20 14: MCHC 30.7 g/dl (31.0-36.0) L 06/22/20 14:01 RDW 14.4 % (11.0-16.0) 06/22/20 14:01 Plt Count 328 X10*3/uL (160-400) 06/22/20 14:01 MPV 10.9 fL (9.4-12.4) 06/22/20 14:01 Immature Gran % (Auto) 0.9 % (0.0-0.4) H 06/22/20 14:01 Neut % (Auto) 59.1 % (45-73) 06/22/20 14:01 Lymph % (Auto) 22.5 % (20-40) 06/22/20 14:01 Nye % (Auto) 12.5 % (2-11) H 06/22/20 14:01 Eos % (Auto) 4.7 % (0-4) H 06/22/20 14:01 Baso % (Auto) 0.3 % (0-2) 06/22/20 14:01 Lymph # (Auto) 2.1 X10*3/uL (1.2-4.9) 06/22/20 14:01 Nye # (Auto) 1.2 X10*3/uL (0.1-1.2) 06/22/20 14:01 Eos # (Auto) 0.4 X10*3/uL (0.0-0.4) 06/22/20 14:01 Baso # (Auto) 0.0 X10*3/uL (0.0-0.2) 06/22/20 14:01 Abs Immat Gran (auto) 0.08 X10*3/uL (0.00-0.03) H 06/22/20 14:01 Absolute Neuts (auto) 5.4 X10*3/uL (2.0-8.3) 06/22/20 14:01 Absolute Nucleated RBC 0.000 X10*3/uL (0.0-0.012) 06/22/20 14:01 Nucleated RBC % (auto) 0.0 /100WBC (0.0-0.2) 06/22/20 14:01 Sodium 142 mmol/L (135-145) 06/22/20 14:01 Potassium 5.4 mmol/L (3.3-5.1) H 06/22/20 14:01 Chloride 108 mmol/L (96-108) 06/22/20 14:01 Carbon Dioxide 25 mmol/L (22-29) 06/22/20 14:01 Anion Gap 14 (12-20) 06/22/20 14:01 BUN 50 mg/dL (9-16) H 06/22/20 14:01 Creatinine 3.04 mg/dL (0.5-1.4) H 06/22/20 14:01 Estim Creat Clear Calc 26.1 06/22/20 14:01 Estimated GFR 20 06/22/20 14:01 Random Glucose 203 mg/dL (60-115) H 06/22/20 14:01 Calcium 8.5 mg/dL (8.4-10.2) 06/22/20 14:01 Total Bilirubin 0.3 mg/dL (0.0-1.0) 06/22/20 14:01 AST 30 U/L (5-37) 06/22/20 14:01 ALT 18 U/L (0-40) 06/22/20 14:01 Alkaline Phosphatase 133 U/L (39-117) H 06/22/20 14:01 Total Protein 6.7 g/dL (6.5-8.0) 06/22/20 14:01 Albumin 3.3 g/dL (3.5-5.0) L 06/22/20 14:01 Carcinoembryonic Ag 5.40 ng/mL 06/22/20 14:01 PSA Screen 2.81 ng/mL (<0.05-4.0) 06/22/20 14:01 Progress Note: A/P (1) Adenocarcinoma of lung, stage 3 Problem details: PATIENT IS BEING FOLLOWED BY DR. BERRY FOR ONCOLOGY, SHE IS COMPLETING THE STAGING WORKUP, I DISCUSSED WITH HER AND SHE EXPLAINED THAT BECAUSE OF HIS UNDERLYING KIDNEY DISEASE AGGRESSIVE CHEMOTHERAPY WILL NOT BE POSSIBLE. SHE HAS REFERRED HIM FOR RADIATION THERAPY. Status: Acute Assessment and plan: This is an unfortunate 70 year-old gentleman with history of smoking, who has non-small cell lung carcinoma. Final pathology report revealed: Primary tumor: 3.1 x 2 x 2 cm, adenocarcinoma, invasive, acinar pattern predominant, of pulmonary origin. Moderately differentiated. Tumor invades visceral pleura up. Tumor spread through air spaces. Lymphatic vessel invasion: Foci suspicious. Blood vessel invasion: Not identified. Tumor necrosis: Present. Margins of resection: Tumor present in lymph node and lymphatic vessels at the margin. Lymph nodes: Perihilar/intraparenchymal: 1. With extra tyrel extension. Left level 9: 1. Left level 5:1. Left level 10: 1. Left perivascular: Negative. TTF 1: Positive. Pathologic TNM stage:pT2a,pN2, Mx. I proceeded with staging workup. His PET scan from 06/30: Postsurgical changes from resection of a previously visualized left lower lobe pulmonary nodule are noted. Mildly to moderately intense FDG activity is associated with suture lines and a small amount of left pleural fluid in this region which likely represent post surgical inflammatory changes. Multiple stable appearing mediastinal lymph nodes are present, and these continue to show mild FDG activity which is not significantly changed from the prior 02/25/2020 PET/CT scan. These may be inflammatory or malignant in etiology. No additional abnormalities suspicious for other metastatic or malignant lesions are noted. MRI of the head was done, however could not give contrast due to renal function. He had a tele visit with Dr. Girma Daniel, from [facility]. I discussed the treatment plan with him. He had disease localized to the chest, so I proceeded with upfront chemotherapy. I was rather concerned about his kidney function being elevated. His Carbo dose with AUC of 2 would be around 110. He had low dose weekly Carbo/Paclitaxel, he completed 9 weeks of treatment on 09/25. He had a CAT scan the chest on 09/28: Postsurgical changes to the left lower lobe. New areas of increased peribronchial attenuation in the left upper and lower lobe and 0.7 x 1.7 cm left upper lobe semisolid nodule. This may represent airways disease/infectious or inflammatory process. Short-term follow-up chest CT scan in 2-3 months is recommended. Small loculated left pleural effusion decreased from most recent postoperative PET/CT scan June 2020. Mild paraseptal emphysema. Question mild peripheral interstitial lung disease. He has had a cough. My concern is pneumonia. PLAN: Will start him on antibiotics. I have sent a copy of the scan to Dr. Daniel, to see if he feels consolidative radiation therapy would help. Alternatively, can use immunotherapy with nivolumab. Will continue to monitor his labs including kidney function. 25 minutes were spent coordinating his care including the tele visit, review of imaging, review of labs, making treatment plans and and counseling the patient. Thank you, CC: Dr. Myers. Dr. Muñoz. Dr. Girma Daniel. - Time Spent With Patient Total time spent is greater than 50% in coordination of care (as documented) at patient's floor/unit and/or counseling patient: 15 - 24 minutes
--- NOTE | 2020-10-01 15:04 | MHC.HEMONC ---
Faxed CT scan results to Dr. Daniel at [facility]; requesting callback for Dr. Mccoy.
--- NOTE | 2020-10-01 16:26 | MHC.HEMONC ---
Pt had televisit with Dr Mccoy to review CT results. Plan is for pt to come in tomorrow 10/02, for blood transfusion. CT scan results faxed to [facility] for Dr Daniel to review for possible radiation.
[2020-10-02] VITALS (7 sets, daily range): BP systolic 91–143; BP diastolic 52–83; PULSE 72–92; RESP 18–20; TEMP 36.2–36.6; O2SAT 96; BMI 33.8
[2020-10-02] MEDS: Albuterol Sulfate (0.083%) 2.5 MG/3 ML VIAL.NEB INHALE (14:55)
[2020-10-02] MEDS: cefTRIAXone sodium 1 GM in 0.9 % Sodium Chloride 50 ML IV (15:32)
[2020-10-02] MEDS: Azithromycin 500 MG TABLET PO (15:40)
--- NOTE | 2020-10-02 16:19 | MHC.HEMONC ---
Addendum entered by Sheryl Rizvi RN 10/02/20 16:33: Ceftriaxone IVand Zithromax po given as ordered Original Note: Pt here for blood transfusion. Pt tired, SOB on exertion. He still has a loose nonproductive cough. Lungs course but clears with cough. Does have crackles in the bases. Albuterol updraft given by resp therapy. Sputum also sent to lab. IV started right hand, #[id number]. Good blood return noted. Pt had 2 units PRBCs and tolerated well. Pt scheduled for a follow up with Dr Mccoy for 1 week. Pt also given information sheet on Nivolumab.
[2020-10-08 10:40] LABS: MANUAL DIFF FLAG NO
[2020-10-08 10:47] VITALS: BP 122/59; PULSE 86; RESP 18; TEMP 36.6; O2SAT 96; BMI 33.8
[2020-10-08 11:15] LABS: Basophils Percent Auto 0.4 % (0-2); Eosinophils Percent Auto 0.8 % (0-4); Hematocrit 30.6 % (42-52); Hemoglobin 9.7 g/dl (14.0-18.0); Imm Gran Abs Auto 0.03 X10*3/uL (0.00-0.03); Imm Gran Pct Auto 0.6 % (0.0-0.4); Lymphocytes Absolute Auto 1.5 X10*3/uL (1.2-4.9); Lymphocytes Percent Auto 29.1 % (20-40); Mean Corpuscular HGB Conc 31.7 g/dl (31.0-36.0); Mean Corpuscular Hemoglobin 28.4 pg (27.0-33.0); Mean Corpuscular Volume 89.7 fL (80-98); Mean Platelet Volume 9.7 fL (9.4-12.4); Monocytes Percent Auto 19.1 % (2-11); Neutrophils Absolute Auto 2.5 X10*3/uL (2.0-8.3); Platelet Count 260 X10*3/uL (160-400); Red Blood Count 3.41 X10*6/uL (4.60-5.80); Red Cell Distribution Width 18.6 % (11.0-16.0)
[2020-10-08 11:45] LABS: Alanine Aminotransferase 11 U/L (0-40); Albumin Level 3.2 g/dL (3.5-5.0); Alkaline Phosphatase 109 U/L (39-117); Anion Gap 14 (12-20); Aspartate Amino Transferase 13 U/L (5-37); Bilirubin Total 0.3 mg/dL (0.0-1.0); Blood Urea Nitrogen 49 mg/dL (9-16); Calcium 8.5 mg/dL (8.4-10.2); Carbon Dioxide 25 mmol/L (22-29); Chloride 108 mmol/L (96-108); Creatinine Clr Calc Pharmacy 30.9; Estimated Glomerular Filt Rate 24; Glucose Random 207 mg/dL (60-115); Potassium 5.2 mmol/L (3.3-5.1); Sodium 142 mmol/L (135-145); Total Protein 6.6 g/dL (6.5-8.0)
--- NOTE | 2020-10-08 11:45 | P.PNHO_ITS ---
Medical Summary - Medical Summary Date of Service: 10/08/20 Chief complaint: Follow-up for: Non-small cell lung carcinoma. 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 CURRENT THERAPY: On systemic chemotherapy, with low-dose weekly Carbo/Taxol, completed week 9 on 09/25. Received 2 packed RBCs on 10/02. Interval History Interval history: Andi Justin is a pleasant 69 year old gentleman, here for a follow-up visit. Unfortunately his , on monday 10/02. It has taken a toll on Mr. Justin. It was good that he recieved the blood transfusion on monday. His energy level, has improved. He was able to participate in the . He denies fever nor chills. HEENT: No headache no dizziness. CVS: He denies any chest pain however he does get short of breath especially when he tries to lay down. Pulmonary: His cough has improved. Less sputum production. Since he has been antibiotics. The Codeine cough syp is helping. He takes it once at night.. He had a Chest x-ray done on 09/16 which revealed: Postop changes. GI: Denies abdominal pain nausea vomiting heartburn indigestion. Bowels are working without any gross blood in it. He has been constipated for 3 days. He thinks that is causing his appetite to be low. : He has increased frequency of micturition. He goes 10 times a day. Musculoskeletal: He had left knee replacement. His right knee is bothering him now. 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 His sleep times are messed up. Sometimes if he goes to bed at 12 he wakes up at 05:00. If he sleeps earlier than he wakes up at 2. Psych: Denies depression. Derm: No skin rash nor pruritus. Previous history: He has a history of COPD. He has had a lung nodule that was being followed by imaging. On 06 February 2020, low-dose CT chest revealed: Enlarging suspicious looking 2.2 x 1.6 cm irregular marginated left lower lobe lesion. PET/CT would be helpful in further evaluation if percutaneous biopsy is not being contemplated. Old granulomatous disease. Mild mediastinal and hilar lymphadenopathy. 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 Lung-RADS category 4B: Suspicious. PET scan from 02/24 revealed: 1. A medial pleural-based left lower lobe there is no definite abnormal FDG activity suggesting a benign etiology. However because approximately 10% of pulmonary malignancies demonstrate no abnormal FDG activity, in addition this nodule has enlarged since less recent prior CT scans, if biopsy of this nodule is not obtained, followup with diagnostic CT scan in 3-6 months is recommended. 2. Several nonenlarged FDG avid mediastinal lymph nodes are present as described above, and these are nonspecific and may be inflammatory or malignant in etiology. 3. No additional abnormalities suspicious for metastatic or other malignant lesions are noted. CT chest from 06/03: Exam is limited due to respiratory motion artifact however there appears to be continued slight interval increase in size in the left lower lobe nodule compared to most recent exam January 2020. Paraseptal emphysema and question mild interstitial disease at the lung bases. Enlarged heart. Diffuse increased sclerosis of the bones questionable for metabolic bone disease. On June 16 he underwent: Left lower lobe lung wedge resection. Frozen section diagnosis: Adenocarcinoma, similar to the tumor in lymph node. Margin positive for tumor. Frozen section from re-excision of the margin: New margin positive for tumor in lymphatic vessels and lymph node. Family history: Several family members have diabetes. An uncle of stomach cancer. Social history: He is originally from [place]. 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 [place] 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 He came to [place] in April of 2015 after long term. He is . Has 3 children. He smoked a pack-a-day quit 11/30/2019. Review of Systems - Constitutional Reports no additional constitutional complaints, Reports lack of energy, Reports weight loss - Eyes Reports no additional eye complaints - ENT Reports no additional ear, nose, mouth, and throat complaints - Cardiovascular Reports no additional cardiovascular complaints, Denies bluish discoloration of hand/feet, Denies chest pain, Denies excessive sweating, Denies lightheadedness, Reports shortness of breath - Respiratory Reports no additional respiratory complaints, Reports chest congestion Comments: cough has improved. - Gastrointestinal Reports no additional gastrointestinal complaints - Genitourinary Genitourinary: Reports no additional male genitourinary complaints - Musculoskeletal Reports no additional musculoskeletal complaints - Integumentary/Breasts Skin/Breast: Reports no additional skin complaints - Neurologic Reports no additional neurologic complaints, Reports weakness - Psychiatric Reports no additional psychiatric complaints - Endocrine Reports no additional endocrine complaints - Hematologic/Lymphatic Reports no additional hematologic/lymphatic complaints - Allergic/Immunologic Reports no additional allergic/immunologic complaints [facility] Medical History: Medical History (Last Reviewed 07/23/20 @ 11:18 by LILLIAM MurrayJOSE) CKD (chronic kidney disease) COPD (chronic obstructive pulmonary disease) COPD (chronic obstructive pulmonary disease) Diabetes Dyspnea on exertion HTN (hypertension) Lung nodule Personal history of nicotine dependence Restrictive lung disease Functional capacity: uses cane/walker Patient : No Family History: Family History (Last Reviewed 07/23/20 @ 11:18 by KT Murray) Father No problems noted. Mother Diabetes mellitus Surgical History: Surgical History (Last Updated 07/20/20 @ 06:56 by KT Murray) H/O pneumonectomy History of arthroplasty of left knee Onset Date: 01/12/16 History of left cataract surgery Hx of laparoscopy Social History: Social History (Last Reviewed 07/23/20 @ 11:18 by KT Murray) Living Situation History: Household Members: Spouse Housing: House Are you a primary career development specialist to a significant other at home: Yes Do you presently have visiting nurse or other home services: Yes Do you presently have visiting nurse or other home services comment: cleaning Alcohol History: Alcohol intake: never Tobacco History: Years Smoked: 54 Substance Use History: Use of substances other than those prescribed or required for medical reasons : No Nutrition Assessment: Patient : No Oncology Screenings - ECOG Performance Status ECOG Performance Status: 1 Home Medications and Allergies Home Medications Medication Instructions Recorded Confirmed Type sodium polystyrene sulfonate PO 07/23/20 07/23/20 History Allergies Allergy/AdvReac Type Severity Reaction Status Date / Time No Known Allergies Allergy Verified 07/23/20 11:18 [No Known Allergies*] Exam Vital signs: Vital Signs Temp 97.8 F 10/08/20 10:47 Pulse 86 10/08/20 10:47 Resp 18 10/08/20 10:47 BP 122/59 L 10/08/20 10:47 Pulse Ox 96 10/08/20 10:47 Intake & Output 10/07/20 10/08/20 10/08/20 18:59 06:59 18:59 Other: Weight 103.9 kg [place] Weight in Grams 100461 Weight 103.9 kg Body Mass Index 33.8 - Constitutional Present: mild distress - Routine HEENT Exam Head: Present: normal inspection Eye: Present: normal appearance ENT: Present: mucous membranes moist - Routine Neck Exam Present: full ROM - Routine Respiratory Exam Present: CTAB - Routine Cardiovascular Exam Cardiovascular: Present: RRR, S1, S2 - Routine Abdominal Exam Present: soft, nontender - Routine Extremities Exam Present: nontender - Routine Back/Spine/Pelvis Exam Back/Spine: Present: full ROM - Routine Skin Exam Present: intact - Routine Neurological Exam Present: alert, oriented X3 - Detailed Neurological Exam: Coma Scale Eye Opening: Spontaneous (4) - Routine Psychiatric Exam Present: normal affect Data - Labs CBC & Chem 7: 10/08/20 10:38 10/08/20 10:38 Labs: 06/22/20 14:01 Carcinoembryonic Antigen Routine Complete Blood Count Auto Diff Routine Comprehensive Met. Panel Routine PSA [Prostate Specific Antigen Scr] Routine Laboratory Last Values WBC 9.2 X10*3/uL (4.8-10.8) 06/22/20 14:01 RBC 3.85 X10*6/uL (4.60-5.80) L 06/22/20 14:01 Hgb 9.8 g/dl (14.0-18.0) L 06/22/20 14:01 Hct 31.9 % (42-52) L 06/22/20 14:01 MCV 82.9 fL (80-98) 06/22/20 14:01 MCH 25.5 pg (27.0-33.0) L 06/22/20 14:01 MCHC 30.7 g/dl (31.0-36.0) L 06/22/20 14:01 RDW 14.4 % (11.0-16.0) 06/22/20 14:01 Plt Count 328 X10*3/uL (160-400) 06/22/20 14:01 MPV 10.9 fL (9.4-12.4) 06/22/20 14:01 Immature Gran % (Auto) 0.9 % (0.0-0.4) H 06/22/20 14:01 Neut % (Auto) 59.1 % (45-73) 06/22/20 14:01 Lymph % (Auto) 22.5 % (20-40) 06/22/20 14:01 [place] % (Auto) 12.5 % (2-11) H 06/22/20 14:01 Eos % (Auto) 4.7 % (0-4) H 06/22/20 14:01 Baso % (Auto) 0.3 % (0-2) 06/22/20 14:01 Lymph # (Auto) 2.1 X10*3/uL (1.2-4.9) 06/22/20 14:01 [place] # (Auto) 1.2 X10*3/uL (0.1-1.2) 06/22/20 14:01 Eos # (Auto) 0.4 X10*3/uL (0.0-0.4) 06/22/20 14:01 Baso # (Auto) 0.0 X10*3/uL (0.0-0.2) 06/22/20 14:01 Abs Immat Gran (auto) 0.08 X10*3/uL (0.00-0.03) H 06/22/20 14:01 Absolute Neuts (auto) 5.4 X10*3/uL (2.0-8.3) 06/22/20 14:01 Absolute Nucleated RBC 0.000 X10*3/uL (0.0-0.012) 06/22/20 14:01 Nucleated RBC % (auto) 0.0 /100WBC (0.0-0.2) 06/22/20 14:01 Sodium 142 mmol/L (135-145) 06/22/20 14:01 Potassium 5.4 mmol/L (3.3-5.1) H 06/22/20 14:01 Chloride 108 mmol/L (96-108) 06/22/20 14:01 Carbon Dioxide 25 mmol/L (22-29) 06/22/20 14:01 Anion Gap 14 (12-20) 06/22/20 14:01 BUN 50 mg/dL (9-16) H 06/22/20 14:01 Creatinine 3.04 mg/dL (0.5-1.4) H 06/22/20 14:01 Estim Creat Clear Calc 26.1 06/22/20 14:01 Estimated GFR 20 06/22/20 14:01 Random Glucose 203 mg/dL (60-115) H 06/22/20 14:01 Calcium 8.5 mg/dL (8.4-10.2) 06/22/20 14:01 Total Bilirubin 0.3 mg/dL (0.0-1.0) 06/22/20 14:01 AST 30 U/L (5-37) 06/22/20 14: ALT 18 U/L (0-40) 06/22/20 14:01 Alkaline Phosphatase 133 U/L (39-117) H 06/22/20 14:01 Total Protein 6.7 g/dL (6.5-8.0) 06/22/20 14: Albumin 3.3 g/dL (3.5-5.0) L 06/22/20 14:01 Carcinoembryonic Ag 5.40 ng/mL 06/22/20 14: PSA Screen 2.81 ng/mL (<0.05-4.0) 06/22/20 14:01 Progress Note: A/P (1) Adenocarcinoma of lung, stage 3 Problem details: PATIENT IS BEING FOLLOWED BY DR. BERRY FOR ONCOLOGY, SHE IS COMPLETING THE STAGING WORKUP, I DISCUSSED WITH HER AND SHE EXPLAINED THAT BECAUSE OF HIS UNDERLYING KIDNEY DISEASE AGGRESSIVE CHEMOTHERAPY WILL NOT BE POSSIBLE. SHE HAS REFERRED HIM FOR RADIATION THERAPY. Status: Acute Assessment and plan: This is an unfortunate 70 year-old gentleman with history of smoking, who has non-small cell lung carcinoma. Final pathology report revealed: Primary tumor: 3.1 x 2 x 2 cm, adenocarcinoma, invasive, acinar pattern predominant, of pulmonary origin. Moderately differentiated. Tumor invades visceral pleura up. Tumor spread through air spaces. Lymphatic vessel invasion: Foci suspicious. Blood vessel invasion: Not identified. Tumor necrosis: Present. Margins of resection: Tumor present in lymph node and lymphatic vessels at the margin. Lymph nodes: Perihilar/intraparenchymal: 1. With extra tyrel extension. Left level 9: 1. Left level 5:1. Left level 10: 1. Left perivascular: Negative. TTF 1: Positive. Pathologic TNM stage:pT2a,pN2, Mx. I proceeded with staging workup. His PET scan from 06/30: Postsurgical changes from resection of a previously visualized left lower lobe pulmonary nodule are noted. Mildly to moderately intense FDG activity is associated with suture lines and a small amount of left pleural fluid in this region which likely represent post surgical inflammatory changes. Multiple stable appearing mediastinal lymph nodes are present, and these cont inue to show mild FDG activity which is not significantly changed from the prior 02/25/2020 PET/CT scan. These may be inflammatory or malignant in etiology. No additional abnormalities suspicious for other metastatic or malignant lesions are noted. MRI of the head was done, however could not give contrast due to renal function. He had a tele visit with Dr. Girma Daniel, from [facility]. I discussed the treatment plan with him. He had disease localized to the chest, so I proceeded with upfront chemotherapy. I was rather concerned about his kidney function being elevated. His Carbo dose with AUC of 2 would be around 110. He had low dose weekly Carbo/Paclitaxel, he completed 9 weeks of treatment. He had a CAT scan the chest on 09/28: Postsurgical changes to the left lower lobe. New areas of increased peribronchial attenuation in the left upper and lower lobe and 0.7 x 1.7 cm left upper lobe semisolid nodule. This may represent airways disease/infectious or inflammatory process. Short-term follow-up chest CT scan in 2-3 months is recommended. Small loculated left pleural effusion decreased from most recent postoperative PET/CT scan June 2020. Mild paraseptal emphysema. Question mild peripheral interstitial lung disease. PLAN: To proceed with further staging workup. He is scheduled for an MRI tomorrow at 12:30. PET scan is scheduled for Monday at 02:30. I will review the results and make further plans. He had a tele visit with Dr. Daniel, who discussed consolidative radiation therapy. He did go over potential side effects including risk of radiation pneumonitis around 20%, fatigue, erythema, chest pain shortness of breath weight loss temporary dysphagia and odynophagia, esophageal stenosis/perforation, risk of cardiomyopathy and brachial plexopathy. Since Mr. Justin is by himself now, the family's trying to figure out if he should moved to [place] with his son. He may end up getting treated at [facility]. They will keep me posted with his plan. I can set up the appointment and make a referral there. He will return next week for a follow-up visit. Thank you, CC: Dr. Myers. Dr. Muñoz. Dr. Girma Daniel. - Time Spent With Patient 25 - 35 minutes
--- NOTE | 2020-10-08 12:01 | MHC.HEMONC ---
pt here with dtr and son-in - law to see about next steps with Dr Mccoy. He will be going for MRI and then possible RT at [facility]. Labs drawn and to be reviewed.
[2020-10-08 12:03] LABS: Estimated Average Glucose 154 mg/dL
--- NOTE | 2020-10-12 14:37 | MHC.HEMONCMA ---
Waiting for [facility] field representative to call with a date and time for consult.
== END | disposition home or self-care (01) ==
LOC: HO.ONC 06-22 13:54
PROVIDERS: PCP Nurse Practitioner Family; Referring Provider Surgery; Visit Provider Internal Medicine Medical Oncology
DX: Z51.11 Encounter for antineoplastic chemotherapy (principal); C34.32 Malignant neoplasm of lower lobe, left bronchus or lung; D64.9 Anemia, unspecified; E11.22 Type 2 diabetes mellitus with diabetic chronic kidney disease; N18.9 Chronic kidney disease, unspecified; Z87.891 Personal history of nicotine dependence
CPT/HCPCS: 36415; 36430; 80053; 82378; 82607; 82728; 82746; 82977; 83036; 83540; 84153; 85007; 85025; 85027; 86850; 86900; 86901; 86923; 87070; 87185; 87205; 96375; 96413; 96415; 96417; 99204; 99211; 99214; J0696; J1100; J1200; J2405; J9045; J9267; P9016; Q3014